=== PATIENT | female | born 1965 ===

== ENCOUNTER 2017-04-19 09:42 | Inpatient (IN) | payer OTHER, MEDICAID ==
[2017-04-19 09:43] VITALS: BMI 23.5
[2017-04-19 10:29] LABS: BASO # 0.1 K/uL (0.0-0.2); BASO % 0.9 % (0.0-2.0); EOS % 0.1 % (0.0-4.0); HEMATOCRIT 39.8 % (34.0-47.0); LYMPH % 17.1 % (20.0-40.0); MEAN CELL VOLUME 89.5 fL (81.0-99.0); MEAN CORPUSCULAR HEMOGLOBIN 28.7 pg (27.0-31.0); MEAN CORPUSCULAR HGB CONC 32.1 g/dL (33.0-37.0); MEAN PLATELET VOLUME 7.9 fL (7.2-11.7); MONO # 1.1 K/uL (0.0-0.8); MONO % 9.4 % (0.0-10.0); RED CELL DISTRIBUTION WIDTH 14.6 % (11.5-14.5)
[2017-04-19 10:31] LABS: WHITE BLOOD COUNT 11.5 K/uL (4.8-10.8)
[2017-04-19 10:39] LABS: CHLORIDE 103 mmol/L (98-107); POTASSIUM 3.8 mmol/L (3.6-5.2); SODIUM 144 mmol/L (132-148)
[2017-04-19 10:41] LABS: ALB/GLOB RATIO 1.3 (1.0-2.1); ALKALINE PHOSPHATASE 78 U/L (38-126); AST/SGOT 43 U/L (14-36); BILIRUBIN,TOTAL 1.3 mg/dL (0.2-1.3); CARBON DIOXIDE 26 mmol/L (22-30); GFR AFRICAN-AMERICAN 48; TOTAL PROTEIN 8.5 g/dL (6.3-8.3)
[2017-04-19 10:42] LABS: ALT/SGPT 26 U/L (9-52); BLOOD UREA NITROGEN 16 mg/dL (7-17); CALCIUM 9.9 mg/dl (8.6-10.4); GLUCOSE,RANDOM 92 mg/dL (65-105)
[2017-04-19 10:43] LABS: ALCOHOL SERUM < 10 mg/dl (0-10)
--- NOTE | 2017-04-19 10:46 | C.PDOC ---
History Of Present Illness 51-year-old female brought to ED by family for evaluation of being agitated x2 days. Patient states she took several pills that her gave her, because she was drinking "and I wanted to get the alcohol out of my system." Family member states that patient is not compliant with bipolar medications. Patient denies current physical complaints other than feeling nervous. She denies SI/ HI. Time Seen by Provider: 04/19/17 09:50 Chief Complaint (Nursing): Psychiatric Evaluation History Per: Patient, Family History/Exam Limitations: no limitations Onset/Duration Of Symptoms: Days Current Symptoms Are (Timing): Still Present Severity: Mild Past Medical History Reviewed: Historical Data, Nursing Documentation, Vital Signs Vital Signs: Last Vital Signs Temp 97.7 F 04/28/17 07:01 Pulse 93 H 04/28/17 07:01 Resp 18 04/28/17 07:01 BP 91/64 L 04/28/17 07:01 Pulse Ox 97 04/28/17 16:37 - Medical History PMH: Anxiety, Bipolar Disorder, Depression, Hepatitis - [facility] Procedures GROUP PSYCHOTHERAPY (10/07/16) INDIV PSYCHOTHERAPY FOR SUBSTANCE ABUSE, PSYCHOEDUCATION (09/03/16) INDIVIDUAL PSYCHOTHERAPY, SUPPORTIVE (10/07/16) MEDICATION MANAGEMENT (10/07/16) MEDS MGMT FOR SUBSTANCE ABUSE TREATMENT, OTH REPL MED (10/07/16) Family History: States: No Known Family Hx - Social History Hx Alcohol Use: Yes Hx Substance Use: Yes - Immunization History Hx Tetanus Toxoid Vaccination: No Hx Influenza Vaccination: No Hx Pneumococcal Vaccination: No Review Of Systems Except As Marked, All Systems Reviewed And Found Negative. Constitutional: Negative for: Fever ( ) Cardiovascular: Negative for: Chest Pain Respiratory: Negative for: Shortness of Breath Gastrointestinal: Negative for: Nausea, Vomiting Neurological: Negative for: Headache Psych: Negative for: Suicidal ideation Physical Exam - Physical Exam Appears: Non-toxic, No Acute Distress, Other (Agitated, awake and alert) Skin: Warm, Dry, No Rash Head: Atraumatic, Normacephalic Eye(s): bilateral: Normal Inspection Oral Mucosa: Moist Cardiovascular: Rhythm Regular (Tachycardic) Respiratory: Normal Breath Sounds, No Rales, No Rhonchi, No Wheezing Gastrointestinal/Abdominal: Normal Exam, Bowel Sounds, Soft, No Tenderness Extremity: Normal ROM Neurological/Psych: Oriented x3 Gait: Steady ED Course And Treatment - Laboratory Results Result Diagrams: 04/22/17 07:59 04/22/17 07:59 ECG: Interpreted By Me, Viewed By Me ECG Rhythm: Sinus Tachycardia ECG Interpretation: No Acute Changes Interpretation Of ECG: No acute ST/T wave changes. QTC: 513ms Rate From EC O2 Sat by Pulse Oximetry: 97 (on room air) Pulse Ox Interpretation: Normal Progress Note: Bloodwork, EKG, and UA, UDS ordered and reviewed. Patient given IV NS bolus, PO Xanax. 4:15pm- Patient medically cleared. CK elevation improving after IV fluids, recommend plenty of PO fluids during psych admission. 4:30pm- Patient accepted for psychiatric admission by Dr. Munoz. Disposition - Disposition Disposition: HOSPITALIZED Disposition Time: 16:30 Condition: STABLE - Clinical Impression Clinical Impression: Bipolar disorder - Scribe Statement The provider has reviewed the documentation as recorded by the Scribe Kimberly Francois All medical record entries made by the Scribe were at my direction and personally dictated by me. I have reviewed the chart and agree that the record accurately reflects my personal performance of the history, physical exam, medical decision making, and the department course for this patient. I have also personally directed, reviewed, and agree with the discharge instructions and disposition. Decision To Admit - Pt Status Changed To: Hospital Disposition Of: Inpatient - Admit Certification Admit to Inpatient:: After my assessment, the patient will require hospitalization for at least two midnights. This is because of the severity of symptoms shown, intensity of services needed, and/or the medical risk in this patient being treated as an outpatient. - InPatient: Physician Admission Certification: I certify that this patient requires 2 or more midnights of care for the following reason:: see notes - . Bed Request Type: Psychiatry Admitting Physician: Fredy Munoz Patient Diagnosis: Bipolar disorder
[2017-04-19] MEDS: Sodium Chloride 0.9% 1,000 ML IV ONE ×2 (11:55→12:18)
[2017-04-19] MEDS ORDERED: Sodium Chloride 0.9% 1,000 ML ONE (12:17)
[2017-04-19] MEDS ORDERED: Sodium Chloride 0.9% 500 ML IV ONE ×2 (12:55→12:57)
[2017-04-19 13:18] LABS: RBC URINE 3 /hpf (0-3); URINE BILIRUBIN NEGATIVE (NEGATIVE); URINE BLOOD NEGATIVE (NEGATIVE); URINE COLOR Yellow (YELLOW); URINE GLUCOSE (UA) NORMAL (Normal); URINE KETONE TRACE mg/dL (NEGATIVE); URINE LEUKOCYTE ESTERASE 1+ Leu/uL (Negative); URINE PROTEIN 1+ mg/dL (NEGATIVE); URINE UROBILINOGEN NORMAL mg/dL (0.2-1.0); WBC URINE 7 /hpf (0-5)
[2017-04-19 14:03] LABS: POTASSIUM 3.8 mmol/L (3.6-5.2)
[2017-04-19 14:06] LABS: CALCIUM 7.8 mg/dl (8.6-10.4)
[2017-04-19] MEDS ORDERED: Pneumococcal 23-Valent Vaccine IM ONE (18:51)
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
[2017-04-20] MEDS: Divalproex 500 mg DR Tab PO SCH ×2 (10:57→20:13)
[2017-04-21] MEDS: Divalproex 500 mg DR Tab PO SCH ×2 (09:23→17:37)
[2017-04-21] MEDS: Calcium-Vit D 250 mg-125 Units Tab UD PO SCH (09:34)
[2017-04-21] MEDS: Calcium Carbonate 500 mg Chewable Antacid Tab PO SCH ×2 (09:41→17:37)
--- NOTE | 2017-04-21 21:11 | PCM.PYCHPN ---
Psychiatric Progress Note - Psychiatric Progress Note Patient seen today, length of contact: 18 min Patient Chief Complaint: "I am better" Problems Identified/Issues Discussed: The pt is seen, chart reviewed, case discussed with staff. The pt is compliant with medications and reports no side-effects. Symptoms are improving but needs more time to stabilize. After care discussed, support and psychoeducation given. Medication Change: Yes Medical Record Reviewed: Yes Mental Status Examination - Cognitive Function Orientation: Person, Place, Situation, Time Memory: Intact Attention: Poor Concentration: Poor Association: WNL Fund of Knowledge: Poor - Mood Mood: Anxious - Affect Affect: Other (labile) - Speech Speech: Appropriate - Formal Thought Process Formal Thought Process: Loosening of associations - Suicidal Ideation Suicidal Ideation: No - Homicidal Ideation Homicidal Ideation: No Goal/Treatment Plan - Goal/Treatment Plan Need for Continued Stay: Discharge may exacerbated symptoms, Severe functional impairment Progress Toward Problem(s) and Goals/Treatment Plan: Bipolar d/o: - Seroquel - Depakote - Attend groups and activities - Support and psychoed Alcohol and benzos: - gabapentin and depakote should help with possible mild wdw sxs - Monitor CIWA - Vitamins - As needed meds - Attend groups and activities - Support and psychoed - [place] and CBt
[2017-04-22 08:19] LABS: BASO % 0.7 % (0.0-2.0); EOS # 0.1 K/uL (0.0-0.7); EOS % 2.7 % (0.0-4.0); HEMATOCRIT 35.8 % (34.0-47.0); LYMPH # 1.6 K/uL (1.0-4.3); LYMPH % 33.5 % (20.0-40.0); MEAN CELL VOLUME 89.6 fL (81.0-99.0); MEAN CORPUSCULAR HEMOGLOBIN 29.3 pg (27.0-31.0); MEAN CORPUSCULAR HGB CONC 32.7 g/dL (33.0-37.0); MONO # 0.3 K/uL (0.0-0.8); MONO % 7.2 % (0.0-10.0); NRBC % 0.2 % (0.0-2.0); RED CELL DISTRIBUTION WIDTH 14.9 % (11.5-14.5)
[2017-04-22 08:33] LABS: WHITE BLOOD COUNT 4.7 K/uL (4.8-10.8)
[2017-04-22 08:37] LABS: CHLORIDE 102 mmol/L (98-107); POTASSIUM 4.1 mmol/L (3.6-5.2); SODIUM 136 mmol/L (132-148)
[2017-04-22 08:39] LABS: BILIRUBIN,TOTAL 0.6 mg/dL (0.2-1.3); GFR AFRICAN-AMERICAN > 60
[2017-04-22 08:40] LABS: ALB/GLOB RATIO 1.3 (1.0-2.1); ALKALINE PHOSPHATASE 53 U/L (38-126); ALT/SGPT 18 U/L (9-52); AST/SGOT 21 U/L (14-36); BLOOD UREA NITROGEN 14 mg/dL (7-17); CARBON DIOXIDE 25 mmol/L (22-30); GLUCOSE,RANDOM 90 mg/dL (65-105); TOTAL PROTEIN 6.6 g/dL (6.3-8.3)
[2017-04-22 08:41] LABS: CALCIUM 8.3 mg/dl (8.6-10.4)
[2017-04-22] MEDS: Divalproex 500 mg DR Tab PO SCH ×2 (09:00→17:40)
[2017-04-22] MEDS: Calcium-Vit D 250 mg-125 Units Tab UD PO SCH (09:00)
[2017-04-22 10:05] LABS: RBC URINE < 1 /hpf (0-3); URINE BILIRUBIN NEGATIVE (NEGATIVE); URINE BLOOD NEGATIVE (NEGATIVE); URINE COLOR Yellow (YELLOW); URINE GLUCOSE (UA) NORMAL (Normal); URINE KETONE NEGATIVE (NEGATIVE); URINE LEUKOCYTE ESTERASE 1+ Leu/uL (Negative); URINE PROTEIN NEGATIVE (NEGATIVE); URINE UROBILINOGEN NORMAL mg/dL (0.2-1.0); WBC URINE 2 /hpf (0-5)
--- NOTE | 2017-04-22 12:24 | PCM.PYCHPN ---
Psychiatric Progress Note - Psychiatric Progress Note Patient seen today, length of contact: 18 min Patient Chief Complaint: i m feeling depressed Problems Identified/Issues Discussed: Patient seen and evaluated, chart reviewed and discussed with the nurse. Patient still reports depressed mood and reports at times feelings of hopelessness or helplessness. She remained isolated and withdrawn. As per staff she was crying whole day yesterday. She still reports withdrawal symptoms for anxiety, headaches and sweating. She is worried that her boyfriend might be deported back to his country in because of multiple DWIs. She reported poor sleep and poor appetite. However she is taking medication and denies any side effects Supportive therapy and psychoeducation were given. Medication Change: No Medical Record Reviewed: Yes Mental Status Examination - Cognitive Function Orientation: Person, Place, Situation, Time Memory: Intact Attention: Poor Concentration: Poor Association: WNL Fund of Knowledge: Poor - Mood Mood: Anxious - Affect Affect: Other (labile) - Speech Speech: Appropriate - Formal Thought Process Formal Thought Process: Loosening of associations - Suicidal Ideation Suicidal Ideation: No - Homicidal Ideation Homicidal Ideation: No Goal/Treatment Plan - Goal/Treatment Plan Need for Continued Stay: Discharge may exacerbated symptoms, Severe functional impairment Progress Toward Problem(s) and Goals/Treatment Plan: Bipolar I, mixed episode, severe r/o schizoaffective d/o Alcohol use d/o - moderate Sedative, hypnotic use d/o - moderate Bipolar d/o: - Seroquel 300 mg daily at bedtime - Depakote 500 mg by mouth twice a day - Attend groups and activities - Support and psychoed Alcohol and benzos: - Monitor CIWA - Vitamins - As needed meds - Attend groups and activities - Support and psychoed - [place] and CBt - Smoking Cessation Smoking Cessation Initiated: No
[2017-04-23] MEDS: Calcium-Vit D 250 mg-125 Units Tab UD PO SCH (10:02)
[2017-04-23] MEDS: Divalproex 500 mg DR Tab PO SCH ×2 (10:36→17:30)
--- NOTE | 2017-04-23 11:18 | PCM.PYCHPN ---
Psychiatric Progress Note - Psychiatric Progress Note Patient seen today, length of contact: 18 min Patient Chief Complaint: I'm feeling anxious Problems Identified/Issues Discussed: Patient seen and evaluated, chart reviewed and discussed with the nurse. As per staff, she was crying whole day yesterday. Patient still reports depressed mood and remained isolated and withdrawn. As per staff she was crying whole day yesterday. She still reports withdrawal symptoms for anxiety, headaches and sweating. She is worried that her boyfriend might be deported back to his country in because of multiple DWIs. She reported poor sleep and poor appetite. However she is taking medication and denies any side effects Supportive therapy and psychoeducation were given. Medication Change: Yes Medical Record Reviewed: Yes Mental Status Examination - Cognitive Function Orientation: Person, Place, Situation, Time Memory: Intact Attention: Poor Concentration: Poor Association: WNL Fund of Knowledge: Poor - Mood Mood: Anxious - Affect Affect: Other (labile) - Speech Speech: Appropriate - Formal Thought Process Formal Thought Process: Loosening of associations - Suicidal Ideation Suicidal Ideation: No - Homicidal Ideation Homicidal Ideation: No Goal/Treatment Plan - Goal/Treatment Plan Need for Continued Stay: Discharge may exacerbated symptoms, Severe functional impairment Progress Toward Problem(s) and Goals/Treatment Plan: Bipolar I, mixed episode, severe r/o schizoaffective d/o Alcohol use d/o - moderate Sedative, hypnotic use d/o - moderate Bipolar d/o: - Seroquel - Depakote - Attend groups and activities - Support and psychoed Alcohol and benzos: - gabapentin and depakote should help with possible mild wdw sxs - Monitor CIWA - Vitamins - As needed meds - Attend groups and activities - Support and psychoed - [place] and CBt
[2017-04-24] MEDS: Divalproex 500 mg DR Tab PO SCH (10:11)
[2017-04-24] MEDS: Calcium-Vit D 250 mg-125 Units Tab UD PO SCH (10:11)
--- NOTE | 2017-04-24 15:17 | PCM.PYCHPN ---
Psychiatric Progress Note - Psychiatric Progress Note Patient seen today, length of contact: 18 min Patient Chief Complaint: I m feeling dizzy.' Problems Identified/Issues Discussed: Patient seen and evaluated, chart reviewed and discussed with the nurse. Today patient reports dizziness from her medications. She still reports depressed mood and reports feelings of hopelessness or helplessness. She remained isolated and withdrawn. She is still worried about the deportation of her boyfriend and continue crying. She reports poor sleep and poor appetite. However she is taking medication and denies any side effects Supportive therapy and psychoeducation were given. Medication Change: Yes (reduce Depakote, decrease seroquel, start zoloft) Medical Record Reviewed: Yes Mental Status Examination - Cognitive Function Orientation: Person, Place, Situation, Time Memory: Intact Attention: Poor Concentration: Poor Association: WNL Fund of Knowledge: Poor - Mood Mood: Anxious - Affect Affect: Other (labile) - Speech Speech: Appropriate - Formal Thought Process Formal Thought Process: Paranoia, Loosening of associations - Suicidal Ideation Suicidal Ideation: No - Homicidal Ideation Homicidal Ideation: No Goal/Treatment Plan - Goal/Treatment Plan Need for Continued Stay: Discharge may exacerbated symptoms, Severe functional impairment Progress Toward Problem(s) and Goals/Treatment Plan: Bipolar I, mixed episode, severe r/o schizoaffective d/o Alcohol use d/o - moderate Sedative, hypnotic use d/o - moderate Bipolar d/o: - Seroquel 200 mg po QHS - Depakote 250 mg PO BID - Zoloft 50 mg PO Daily - Attend groups and activities - Support and psychoed Alcohol and benzos: - gabapentin and depakote should help with possible mild wdw sxs - Monitor CIWA - Vitamins - As needed meds - Attend groups and activities - Support and psychoed - [place] and CBt - Smoking Cessation Smoking Cessation Initiated: No
[2017-04-24] MEDS: Divalproex 250 mg DR Tab PO SCH (18:04)
[2017-04-25] MEDS: Divalproex 250 mg DR Tab PO SCH ×2 (09:33→17:39)
[2017-04-25] MEDS: Calcium-Vit D 250 mg-125 Units Tab UD PO SCH (09:33)
--- NOTE | 2017-04-25 11:16 | PCM.PYCHPN ---
Psychiatric Progress Note - Psychiatric Progress Note Patient seen today, length of contact: 18 min Patient Chief Complaint: I m feeling very anxious.' Problems Identified/Issues Discussed: Patient seen and evaluated, chart reviewed and discussed with the nurse. The patient remained labile and started crying loudly. When asked the reason she reports that she is feeling depressed and anxious. She was given anxiety medications but she continued to cry. She was given IM Haldol and Ativan but she continued to report depressed mood and feelings of hopelessness or helplessness. She remained worried about her boyfriend. She appeared paranoid and delusional. However she is taking medication and denies any side effects Supportive therapy and psychoeducation were given. Medication Change: Yes (reduce Depakote, decrease seroquel, start zoloft) Medical Record Reviewed: Yes Mental Status Examination - Cognitive Function Orientation: Person, Place, Situation, Time Memory: Intact Attention: Poor Concentration: Poor Association: WNL Fund of Knowledge: Poor - Mood Mood: Anxious - Affect Affect: Other (labile) - Speech Speech: Appropriate - Formal Thought Process Formal Thought Process: Delusions, Paranoia, Loosening of associations - Suicidal Ideation Suicidal Ideation: No - Homicidal Ideation Homicidal Ideation: No Goal/Treatment Plan - Goal/Treatment Plan Need for Continued Stay: Discharge may exacerbated symptoms, Severe functional impairment Progress Toward Problem(s) and Goals/Treatment Plan: Bipolar I, mixed episode, severe r/o schizoaffective d/o Alcohol use d/o - moderate Sedative, hypnotic use d/o - moderate Bipolar d/o: - Seroquel 200 mg po QHS - Depakote 250 mg PO daily - Depakote 500 mg PO HS - Zoloft 50 mg PO Daily - Haldol 5 mg by mouth twice a day - Klonopin 1 mg by mouth twice a day - Attend groups and activities - Support and psychoed Alcohol and benzos: - gabapentin and depakote should help with possible mild wdw sxs - Monitor CIWA - Vitamins - As needed meds - Attend groups and activities - Support and psychoed - [place] and CBt
[2017-04-25] MEDS ORDERED: DiphenhydrAMINE 50 mg/ml Inj IM PRN (11:32)
[2017-04-25] MEDS: Divalproex 500 mg DR Tab PO SCH (21:38)
[2017-04-26] MEDS: Divalproex 250 mg DR Tab PO SCH (09:31)
[2017-04-26] MEDS: Calcium-Vit D 250 mg-125 Units Tab UD PO SCH (09:31)
--- NOTE | 2017-04-26 18:45 | PCM.PYCHPN ---
Psychiatric Progress Note - Psychiatric Progress Note Patient seen today, length of contact: 16 min Patient Chief Complaint: "I want to leave soon, have a court date on Saturday" Problems Identified/Issues Discussed: The pt is seen, chart reviewed, case discussed with staff. Support given, CBT and MO used briefly No new symptoms reported, improving slowly and needs some more time No SEs from medications, risks discussed. After care discussed - will go to [place] [facility]. SW is made aware that she will leave on Saturday bc of a court on Saturday Medication Change: No Medical Record Reviewed: Yes Mental Status Examination - Cognitive Function Orientation: Person, Place, Situation, Time Memory: Intact Attention: Poor Concentration: Poor Association: WNL Fund of Knowledge: Poor - Mood Mood: Anxious - Affect Affect: Other (labile) - Speech Speech: Appropriate - Formal Thought Process Formal Thought Process: Delusions, Paranoia, Loosening of associations - Suicidal Ideation Suicidal Ideation: No - Homicidal Ideation Homicidal Ideation: No Goal/Treatment Plan - Goal/Treatment Plan Need for Continued Stay: Discharge may exacerbated symptoms, Severe functional impairment Progress Toward Problem(s) and Goals/Treatment Plan: Continue meds Support and psychoed MO Sx-mgt discussed After care discussed Estimated Date of D/C: 04/28/17
[2017-04-26] MEDS: Divalproex 500 mg DR Tab PO SCH (21:12)
[2017-04-27] MEDS: Divalproex 250 mg DR Tab PO SCH (10:53)
[2017-04-27] MEDS: Calcium-Vit D 250 mg-125 Units Tab UD PO SCH (10:56)
--- NOTE | 2017-04-27 15:37 | CARD ---
APPROVED REPORT EKG Measurement Heart [id number] <Conclusion> Sinus tachycardia Possible Left atrial enlargement Borderline ECG
[2017-04-27] MEDS: Divalproex 500 mg DR Tab PO SCH (21:19)
[2017-04-28 07:02] VITALS: BP 91/64; PULSE 93; RESP 18; TEMP 97.7
[2017-04-28] MEDS: Calcium-Vit D 250 mg-125 Units Tab UD PO SCH (09:06)
[2017-04-28] MEDS: Divalproex 250 mg DR Tab PO SCH (09:06)
[2017-04-28 16:35] VITALS: O2SAT 97
--- NOTE | 2017-04-28 23:26 | PCM.PYCHPN ---
Psychiatric Progress Note - Psychiatric Progress Note Patient seen today, length of contact: 15 MIN Patient Chief Complaint: I NEED TO LEAVE TOMORROW, I HAVE COURT SATURDAY. Problems Identified/Issues Discussed: SYMPTOM MANAGEMENT AFTERCARE Medical Problems: NOTHING ACUTE Diagnostic Results: REVIEWED DSM 5 Symptoms Update: HAS ENERGY HAS MOTIVATION Medication Change: No Medical Record Reviewed: Yes Mental Status Examination - Cognitive Function Orientation: Person, Place, Situation, Time Memory: Intact Attention: WNL Concentration: WNL Association: WNL Fund of Knowledge: Poor - Mood Mood: Anxious - Affect Affect: Blunted, Other (labile) - Speech Speech: Appropriate - Formal Thought Process Formal Thought Process: Delusions, Paranoia - Suicidal Ideation Suicidal Ideation: No - Homicidal Ideation Homicidal Ideation: No Goal/Treatment Plan - Goal/Treatment Plan Need for Continued Stay: Remain at risks for inpatient hospitalization, Discharge may exacerbated symptoms, Severe functional impairment Progress Toward Problem(s) and Goals/Treatment Plan: ATTENDING GROUPS TAKING MEDS Estimated Date of D/C: 04/28/17 - Smoking Cessation Smoking Cessation Initiated: No
== END 2017-04-28 12:00 | disposition home or self-care (01) | DRG 885 ==
LOC: C.ER 09:42 → C.9E 16:29 → C.5E 16:53
PROVIDERS: ADMIT Psychiatry & Neurology Psychiatry; ATTEND Psychiatry & Neurology Psychiatry
PROC: GZHZZZZ Group Psychotherapy (ICD-10-PCS; principal; 2017-04-19)
PROC: HZ56ZZZ Individual Psychotherapy for Substance Abuse Treatment, Psychoeducation (ICD-10-PCS; 2017-04-19)
PROC: HZ59ZZZ Individual Psychotherapy for Substance Abuse Treatment, Supportive (ICD-10-PCS; 2017-04-19)
PROC: GZ56ZZZ Individual Psychotherapy, Supportive (ICD-10-PCS; 2017-04-19)
DX: F31.63 Bipolar disorder, current episode mixed, severe, without psychotic features (principal); F13.10 Sedative, hypnotic or anxiolytic abuse, uncomplicated; F41.9 Anxiety disorder, unspecified; Z79.899 Other long term (current) drug therapy; F10.10 Alcohol abuse, uncomplicated

== ENCOUNTER 2017-05-10 22:04 | Observation (INO) | payer OTHER ==
[2017-05-10 22:04] VITALS: BMI 23.5
[2017-05-10 22:14] VITALS: RESP 16
[2017-05-10 23:02] LABS: BASO % 0.8 % (0.0-2.0); EOS % 0.5 % (0.0-4.0); HEMOGLOBIN 11.9 g/dL (11.0-16.0); LYMPH # 1.5 K/uL (1.0-4.3); LYMPH % 32.1 % (20.0-40.0); MEAN CELL VOLUME 89.4 fL (81.0-99.0); MEAN CORPUSCULAR HEMOGLOBIN 28.9 pg (27.0-31.0); MEAN CORPUSCULAR HGB CONC 32.4 g/dL (33.0-37.0); MEAN PLATELET VOLUME 8.2 fL (7.2-11.7); MONO # 0.2 K/uL (0.0-0.8); MONO % 4.4 % (0.0-10.0); NEUT # 2.9 K/uL (1.8-7.0); NEUT % 62.2 % (50.0-75.0); NRBC % 0.1 % (0.0-2.0); RBC 4.11 Mil/uL (3.80-5.20); RED CELL DISTRIBUTION WIDTH 15.1 % (11.5-14.5); WHITE BLOOD COUNT 4.7 K/uL (4.8-10.8)
[2017-05-10 23:10] LABS: ALBUMIN 4.1 g/dL (3.5-5.0)
[2017-05-10 23:13] LABS: AST/SGOT 21 U/L (14-36); GFR AFRICAN-AMERICAN > 60; GFR NON-AFRICAN AMERICAN > 60
[2017-05-10 23:14] LABS: ALB/GLOB RATIO 1.3 (1.0-2.1); ALT/SGPT 19 U/L (9-52); BLOOD UREA NITROGEN 5 mg/dL (7-17); CALCIUM 8.3 mg/dl (8.6-10.4)
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
[2017-05-10 23:22] LABS: URINE BILIRUBIN NEGATIVE (NEGATIVE); URINE BLOOD NEGATIVE (NEGATIVE); URINE CLARITY Clear (Clear); URINE COLOR Yellow (YELLOW); URINE GLUCOSE (UA) NORMAL (Normal); URINE LEUKOCYTE ESTERASE NEG Leu/uL (Negative); URINE NITRATE NEGATIVE (NEGATIVE); URINE PROTEIN NEGATIVE (NEGATIVE); URINE UROBILINOGEN NORMAL mg/dL (0.2-1.0)
[2017-05-10 23:31] LABS: BENZODIAZEPINES, UR NEGATIVE (NEGATIVE)
[2017-05-10 23:32] LABS: BARBITURATES, UR NEGATIVE (NEGATIVE)
[2017-05-10 23:35] LABS: OPIATES, UR NEGATIVE (NEGATIVE); PHENCYCLIDINE, UR NEGATIVE (NEGATIVE)
[2017-05-11 04:21] VITALS: BP 116/78; PULSE 110; TEMP 98.2; O2SAT 98
== END 2017-05-11 02:42 | disposition home or self-care (01) ==
LOC: C.ER 22:04 → C.9OBSV 22:41
PROVIDERS: ADMIT Emergency Medicine; ATTEND Emergency Medicine
DX: F10.129 Alcohol abuse with intoxication, unspecified (principal); F31.9 Bipolar disorder, unspecified; F10.120 Alcohol abuse with intoxication, uncomplicated; Y90.8 Blood alcohol level of 240 mg/100 ml or more
CPT/HCPCS: 80053; 81001; 84703; 85025; 96372; 99285; G0378; G0480; J0515; J1630; J2060

== ENCOUNTER 2017-05-24 17:32 | Emergency (ER) | payer OTHER ==
[2017-05-24 17:33] VITALS: BMI 23.5
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
[2017-05-24 17:45] VITALS: BP 137/96; PULSE 99; RESP 18; TEMP 97.9; O2SAT 96
== END 2017-05-24 17:58 | disposition home or self-care (01) ==
LOC: C.ER 17:32
DX: F10.10 Alcohol abuse, uncomplicated (principal); Y90.9 Presence of alcohol in blood, level not specified

== ENCOUNTER 2017-05-25 00:32 | Observation (INO) | payer OTHER ==
[2017-05-25 00:39] VITALS: BMI 28.3
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
[2017-05-25 07:39] VITALS: BP 112/81; PULSE 99; RESP 16; TEMP 97.5; O2SAT 96
== END 2017-05-25 08:46 | disposition home or self-care (01) ==
LOC: C.ER 00:32 → C.9OBSV 00:39
PROVIDERS: ADMIT Internal Medicine; ATTEND Internal Medicine
DX: F10.120 Alcohol abuse with intoxication, uncomplicated (principal); F31.9 Bipolar disorder, unspecified
CPT/HCPCS: 96372; 99285; G0378; J2060; J3486

== ENCOUNTER 2017-07-13 20:38 | Observation (INO) | payer OTHER ==
[2017-07-13 20:39] VITALS: BMI 28.3
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
[2017-07-13] MEDS ORDERED: DiphenhydrAMINE 50 mg/ml Inj IM STA (21:03)
[2017-07-13] MEDS ORDERED: DiphenhydrAMINE 50 mg/ml Inj ONE (21:11)
[2017-07-13 21:23] LABS: RBC URINE 2 /hpf (0-3); URINE BACTERIA RARE (<OCC); URINE BILIRUBIN NEGATIVE (NEGATIVE); URINE BLOOD NEGATIVE (NEGATIVE); URINE COLOR Straw (YELLOW); URINE GLUCOSE (UA) NORMAL (Normal); URINE KETONE NEGATIVE (NEGATIVE); URINE LEUKOCYTE ESTERASE NEG Leu/uL (Negative); URINE PROTEIN NEGATIVE (NEGATIVE); URINE UROBILINOGEN NORMAL mg/dL (0.2-1.0); WBC URINE 2 /hpf (0-5)
[2017-07-13 21:43] LABS: BASO % 1.3 % (0.0-2.0); EOS % 0.9 % (0.0-4.0); HEMATOCRIT 35.5 % (34.0-47.0); LYMPH # 1.7 K/uL (1.0-4.3); LYMPH % 45.1 % (20.0-40.0); MEAN CELL VOLUME 92.1 fL (81.0-99.0); MEAN CORPUSCULAR HEMOGLOBIN 30.6 pg (27.0-31.0); MEAN CORPUSCULAR HGB CONC 33.2 g/dL (33.0-37.0); MEAN PLATELET VOLUME 7.4 fL (7.2-11.7); MONO # 0.2 K/uL (0.0-0.8); MONO % 6.6 % (0.0-10.0); NRBC % 0.1 % (0.0-2.0); RED CELL DISTRIBUTION WIDTH 17.2 % (11.5-14.5); WHITE BLOOD COUNT 3.7 K/uL (4.8-10.8)
[2017-07-13 21:55] LABS: ALB/GLOB RATIO 1.3 (1.0-2.1); ALCOHOL SERUM 270 mg/dl (0-10); ALKALINE PHOSPHATASE 72 U/L (38-126); ALT/SGPT 33 U/L (9-52); AST/SGOT 27 U/L (14-36); BILIRUBIN,TOTAL 0.4 mg/dL (0.2-1.3); BLOOD UREA NITROGEN 7 mg/dL (7-17); CALCIUM 8.5 mg/dl (8.6-10.4); CARBON DIOXIDE 21 mmol/L (22-30); CHLORIDE 107 mmol/L (98-107); GFR AFRICAN-AMERICAN > 60; GLUCOSE,RANDOM 94 mg/dL (65-105); POTASSIUM 3.9 mmol/L (3.6-5.2); SODIUM 146 mmol/L (132-148); TOTAL PROTEIN 7.5 g/dL (6.3-8.3)
[2017-07-14 05:29] VITALS: BP 108/71; PULSE 78; RESP 19; TEMP 98.3
[2017-07-14 06:08] VITALS: O2SAT 97
== END 2017-07-14 06:07 | disposition home or self-care (01) ==
LOC: C.ER 20:38 → C.9OBSV 21:06
PROVIDERS: ADMIT Emergency Medicine; ATTEND Emergency Medicine
DX: F10.129 Alcohol abuse with intoxication, unspecified (principal)
CPT/HCPCS: 36415; 80053; 81001; 85025; 96372; 99285; G0378; G0480

== ENCOUNTER 2017-07-31 15:54 | Emergency (ER) | payer OTHER ==
[2017-07-31 15:54] VITALS: BMI 28.3
[2017-07-31 16:58] VITALS: BP 153/99; PULSE 112; TEMP 99.3; O2SAT 97
--- NOTE | 2017-07-31 17:34 | C.PDOC ---
History Of Present Illness 51 y/o female, with history of alcohol abuse, presents to ED for evaluation after being given 2 Xanax pills by her last night. Pt states that she has not drank alcohol in "months". Otherwise, denies any chest pain, shortness of breath, cough, nausea, vomiting, abdominal pain, diarrhea, fever, or chills. Time Seen by Provider: 07/31/17 16:54 Chief Complaint (Nursing): Ingestion, Accidental History Per: Patient History/Exam Limitations: no limitations Onset/Duration Of Symptoms: Days (1) Current Symptoms Are (Timing): Still Present Severity: None Pain Scale Rating Of: 0 Recent travel outside of the [place]: No Additional History Per: Patient Past Medical History Reviewed: Historical Data, Nursing Documentation, Vital Signs Vital Signs: Last Vital Signs Temp 99.3 F 07/31/17 16:52 Pulse 112 H 07/31/17 16:52 Resp 16 07/31/17 16:52 BP 153/99 H 07/31/17 16:52 Pulse Ox 97 07/31/17 18:30 - Medical History PMH: Anxiety, Bipolar Disorder, Depression, Hepatitis Denies: Diabetes, HIV, HTN, Chronic Kidney Disease, Seizures, Sexually Transmitted Disease - [facility] Procedures GROUP PSYCHOTHERAPY (05/25/17) INDIV PSYCHOTHERAPY FOR SUBSTANCE ABUSE TREATMENT, SUPPORT (05/25/17) INDIV PSYCHOTHERAPY FOR SUBSTANCE ABUSE, PSYCHOEDUCATION (04/19/17) INDIVIDUAL PSYCHOTHERAPY, SUPPORTIVE (04/19/17) MEDICATION MANAGEMENT (10/07/16) MEDS MGMT FOR SUBSTANCE ABUSE TREATMENT, OTH REPL MED (10/07/16) Family History: States: Unknown Family Hx - Social History Hx Alcohol Use: Yes Hx Substance Use: Yes (used cocaine a long time ago) - Immunization History Hx Tetanus Toxoid Vaccination: No Hx Influenza Vaccination: No Hx Pneumococcal Vaccination: No Review Of Systems Except As Marked, All Systems Reviewed And Found Negative. Constitutional: Negative for: Fever, Chills Cardiovascular: Negative for: Chest Pain, Palpitations, Light Headedness Respiratory: Negative for: Cough, Shortness of Breath Gastrointestinal: Negative for: Nausea, Vomiting, Abdominal Pain, Diarrhea Skin: Positive for: Bruising Neurological: Negative for: Weakness, Numbness, Headache, Dizziness Physical Exam - Physical Exam Appears: Non-toxic, No Acute Distress Skin: Warm, Dry, Other (bruising to arms and legs (pt states she falls frequently due to intoxication)) Head: Atraumatic, Normacephalic Eye(s): bilateral: Normal Inspection, PERRL, EOMI Nose: Normal Oral Mucosa: Moist Tongue: Normal Appearing Lips: Normal Appearing Teeth: No Normal Dentition (poor dentition) Neck: Normal ROM, Supple Chest: Symmetrical Cardiovascular: Rhythm Regular, No Murmur Respiratory: Normal Breath Sounds, No Rales, No Rhonchi, No Wheezing Gastrointestinal/Abdominal: Soft, No Tenderness Back: No CVA Tenderness Extremity: Normal ROM, No Pedal Edema Neurological/Psych: Oriented x3, Normal Speech ED Course And Treatment - Laboratory Results Result Diagrams: 07/31/17 17:41 07/31/17 17:41 Lab Interpretation: Normal O2 Sat by Pulse Oximetry: 97 (RA) Pulse Ox Interpretation: Normal - CT Scan/US No standard instances Other Rad Studies (CT/US): Read By Radiologist, Radiology Report Reviewed CT/US Interpretation: FINDINGS: HEMORRHAGE: No intracranial hemorrhage. BRAIN : No mass effect or edema. The valdez-white matter differentiation appears intact. Please note that MRI with diffusion imaging is more sensitive in the detection of acute ischemic event. VENTRICLES: No hydrocephalus. CALVARIUM: Unremarkable. PARANASAL SINUSES: Unremarkable as visualized. No significant inflammatory changes. MASTOID AIR CELLS: Unremarkable as visualized. No inflammatory changes. OTHER FINDINGS: Partial opacification of bilateral external auditory canals, likely cerumen. Mild frontal scalp hematoma. IMPRESSION: No acute intracranial pathology identified. Mild frontal scalp hematoma. Progress Note: Blood work, UA, head CT ordered and reviewed. On re-evaluation patient alert ambulating with steady gait requesting to be discharged Reassessment Condition: Unchanged Disposition Counseled Patient/Family Regarding: Studies Performed, Diagnosis, Need For Followup - Disposition Referrals: [facility] [Outside] [facility] [Outside] Disposition: HOME/ ROUTINE Disposition Time: 18:30 Condition: STABLE Instructions: Head Injury (ED), Abuse of Alcohol (ED) Forms: [facility] ([place]) - POA Present On Arrival: None - Clinical Impression Clinical Impression: Alcohol abuse, Frequent falls, Head injury - PA / INFECTION CONTROL MANAGER / Resident Statement MD/DO has reviewed & agrees with the documentation as recorded. - Scribe Statement The provider has reviewed the documentation as recorded by the Scribe Nicky Mosher All medical record entries made by the Scribe were at my direction and personally dictated by me. I have reviewed the chart and agree that the record accurately reflects my personal performance of the history, physical exam, medical decision making, and the department course for this patient. I have also personally directed, reviewed, and agree with the discharge instructions and disposition.
[2017-07-31 17:56] LABS: BASO % 0.5 % (0.0-2.0); EOS # 0.1 K/uL (0.0-0.7); EOS % 0.8 % (0.0-4.0); HEMATOCRIT 33.9 % (34.0-47.0); LYMPH # 1.2 K/uL (1.0-4.3); LYMPH % 17.2 % (20.0-40.0); MEAN CELL VOLUME 93.7 fL (81.0-99.0); MEAN CORPUSCULAR HEMOGLOBIN 31.1 pg (27.0-31.0); MEAN CORPUSCULAR HGB CONC 33.2 g/dL (33.0-37.0); MEAN PLATELET VOLUME 7.8 fL (7.2-11.7); MONO # 0.4 K/uL (0.0-0.8); MONO % 5.8 % (0.0-10.0); RED CELL DISTRIBUTION WIDTH 16.6 % (11.5-14.5); WHITE BLOOD COUNT 6.9 K/uL (4.8-10.8)
[2017-07-31 17:57] LABS: CHLORIDE 99 mmol/L (98-107); SODIUM 139 mmol/L (132-148)
[2017-07-31 17:58] LABS: POTASSIUM 4.4 mmol/L (3.6-5.2)
[2017-07-31 18:00] LABS: ALB/GLOB RATIO 1.3 (1.0-2.1); ALKALINE PHOSPHATASE 64 U/L (38-126); ALT/SGPT 34 U/L (9-52); AST/SGOT 36 U/L (14-36); BILIRUBIN,TOTAL 0.6 mg/dL (0.2-1.3); BLOOD UREA NITROGEN 6 mg/dL (7-17); CARBON DIOXIDE 27 mmol/L (22-30); GFR AFRICAN-AMERICAN > 60; GLUCOSE,RANDOM 87 mg/dL (65-105); TOTAL PROTEIN 7.3 g/dL (6.3-8.3)
[2017-07-31 18:01] LABS: ALCOHOL SERUM < 10 mg/dl (0-10); CALCIUM 8.7 mg/dl (8.6-10.4)
--- NOTE | 2017-07-31 18:28 | CT ---
PROCEDURE: CT HEAD WITHOUT CONTRAST. HISTORY: head injury COMPARISON: Images from noncontrast head CT performed 06/17/12 TECHNIQUE: Axial computed tomography images were obtained through the head/brain without intravenous contrast. Radiation dose: Total exam DLP = 859.97 mGy-cm. This CT exam was performed using one or more of the following dose reduction techniques: Automated exposure control, adjustment of the mA and/or kV according to patient size, and/or use of iterative reconstruction technique. FINDINGS: HEMORRHAGE: No intracranial hemorrhage. BRAIN: No mass effect or edema. The valdez-white matter differentiation appears intact. Please note that MRI with diffusion imaging is more sensitive in the detection of acute ischemic event. VENTRICLES: No hydrocephalus. CALVARIUM: Unremarkable. PARANASAL SINUSES: Unremarkable as visualized. No significant inflammatory changes. MASTOID AIR CELLS: Unremarkable as visualized. No inflammatory changes. OTHER FINDINGS: Partial opacification of bilateral external auditory canals, likely cerumen. Mild frontal scalp hematoma. IMPRESSION: No acute intracranial pathology identified. Mild frontal scalp hematoma.
[2017-07-31 18:48] VITALS: RESP 18
[2017-07-31 19:05] LABS: RBC URINE < 1 /hpf (0-3); URINE BILIRUBIN NEGATIVE (NEGATIVE); URINE BLOOD NEGATIVE (NEGATIVE); URINE COLOR Yellow (YELLOW); URINE GLUCOSE (UA) NORMAL (Normal); URINE KETONE NEGATIVE (NEGATIVE); URINE LEUKOCYTE ESTERASE NEG Leu/uL (Negative); URINE PROTEIN NEGATIVE (NEGATIVE); URINE UROBILINOGEN NORMAL mg/dL (0.2-1.0); WBC URINE 2 /hpf (0-5)
== END 2017-07-31 18:31 | disposition home or self-care (01) ==
LOC: C.ER 15:54
DX: F10.10 Alcohol abuse, uncomplicated (principal); Y90.9 Presence of alcohol in blood, level not specified; S09.90XA Unspecified injury of head, initial encounter; W19.XXXA Unspecified fall, initial encounter; Z91.81 History of falling
CPT/HCPCS: 70450; 80053; 81001; 85025; 99284; G0480

== ENCOUNTER 2017-08-25 06:45 | Emergency (ER) | payer OTHER ==
[2017-08-25 06:45] VITALS: BMI 28.3
[2017-08-25 06:59] VITALS: RESP 20; TEMP 97.3
--- NOTE | 2017-08-25 07:58 | C.PDOC ---
History Of Present Illness 51 y/o F c PMHx alcohol abuse p/w L sided thoracic pain x 1 week. Patient states she fell due to drinking and has had pain over her L sided ribs since then. Denies dyspnea, fever, cough, vomiting, abdominal pain. States she drank before arrival today. Time Seen by Provider: 08/25/17 07:08 Chief Complaint (Nursing): Abdominal Pain Past Medical History Vital Signs: Last Vital Signs Temp 97.3 F L 08/25/17 06:55 Pulse 103 H 08/25/17 09:00 Resp 20 08/25/17 09:00 BP 136/80 08/25/17 09:00 Pulse Ox 97 08/25/17 09:09 - Medical History PMH: Anxiety, Bipolar Disorder, Depression, Hepatitis Denies: Diabetes, HIV, HTN, Chronic Kidney Disease, Seizures, Sexually Transmitted Disease - [facility] Procedures GROUP PSYCHOTHERAPY (05/25/17) INDIV PSYCHOTHERAPY FOR SUBSTANCE ABUSE TREATMENT, SUPPORT (05/25/17) INDIV PSYCHOTHERAPY FOR SUBSTANCE ABUSE, PSYCHOEDUCATION (04/19/17) INDIVIDUAL PSYCHOTHERAPY, SUPPORTIVE (04/19/17) MEDICATION MANAGEMENT (10/07/16) MEDS MGMT FOR SUBSTANCE ABUSE TREATMENT, OTH REPL MED (10/07/16) Family History: States: Unknown Family Hx - Social History Hx Alcohol Use: Yes Hx Substance Use: Yes (used cocaine a long time ago) - Immunization History Hx Tetanus Toxoid Vaccination: No Hx Influenza Vaccination: No Hx Pneumococcal Vaccination: No Review Of Systems Except As Marked, All Systems Reviewed And Found Negative. Constitutional: Negative for: Fever Respiratory: Negative for: Cough Physical Exam - Physical Exam Additional Physical Exam Comments: Constitutional: No acute distress. Disheveled appearance. Alcohol on breath. Head: Normocephalic. Eyes: PERRL. ENT: Moist mucous membranes. Neck: Supple. Cardiovascular: Radial pulses 2+ bilaterally. Tachycardic. Chest: L sided thoracic tenderness over rib cage. Respiratory: Clear to auscultation bilaterally. GI: Soft. Nontender. Nondistended. No L sided abdominal tenderness. Back: No CVA tenderness. Musculoskeletal: No tenderness or swelling of extremities. FROM x 4. Skin: No rashes. Neurologic: Alert, no focal deficit. Steady gait. ED Course And Treatment O2 Sat by Pulse Oximetry: 97 Medical Decision Making Medical Decision Making: Will observe in ED until sober. Send for XR Ribs to rule out fracture or PTX. CXR negative for fracture or PTX. Patient steady. Ate while in ED. Discharged home, f/u primary care, return to ED for any problem. Disposition - Disposition Disposition: HOME/ ROUTINE Disposition Time: 08:59 Condition: STABLE Prescriptions: Ibuprofen [Motrin] 1 tab PO Q6 #30 tab Instructions: Rib Contusion (ED) Forms: [facility] ([place]) - Clinical Impression Clinical Impression: Chest wall pain
[2017-08-25 09:07] VITALS: BP 136/80; PULSE 103
[2017-08-25 09:09] VITALS: O2SAT 97
--- NOTE | 2017-08-25 13:07 | RAD ---
PROCEDURE: Chest left rib series 08/25/2017. HISTORY: Left-sided thoracic pain following fall COMPARISON: Comparison made with chest radiograph 07/23/2016 TECHNIQUE: Frontal radiograph of the chest and multiple oblique radiographs of the left ribs were. . FINDINGS: Re- demonstrated is a old healed fracture deformity of the right clavicle. . There also appears be a right apical pleural thickening. The possibility of a chronic fracture deformity of the right 1st or 2nd ribs cannot be completely excluded. Questionable old healed fracture deformity of the 1st or 2nd right rib. Of no definitive radiographic evidence of acute displaced left-sided rib fracture. No definitive radiographic evidence of pneumothorax however note that metallic hospital gown snaps partially obscures the left lung apex. If symptoms persist or occult fracture suspected clinically recommend followup CT scan of the chest. . The heart is enlarged. No infiltrate effusion or definitive radiographic evidence of pneumothorax. Biapical pleural thickening right greater than left felt present. Impression: No definitive radiographic evidence of acute displaced left-sided rib fracture deformities. . Consider followup CT scan of the chest if further evaluation required. Old fracture deformity of the right clavicle. Biapical pleural thickening. No definitive radiographic evidence of acute pneumothorax however note that the left lung apex is partially obscured by hospital gown metal snaps
== END 2017-08-25 09:12 | disposition home or self-care (01) ==
LOC: C.ER 06:45
DX: R07.89 Other chest pain (principal)

== ENCOUNTER 2017-12-29 20:37 | Emergency (ER) | payer OTHER ==
[2017-12-29 20:37] VITALS: BMI 28.3
[2017-12-29 21:41] VITALS: BP 98/64; PULSE 122; RESP 22; TEMP 98; O2SAT 98
--- NOTE | 2017-12-29 21:46 | C.PDOC ---
History Of Present Illness Patient is a 52 y/o female who presents to the ED requesting detox. Patient has lengthy Hx of psychiatric illnesses, alcohol abuse, and failed detoxes. Patient is verbal and ambulatory in ED. Admits to alcohol use today. No other physical complaints at this time. Time Seen by Provider: 12/29/17 21:44 Chief Complaint (Nursing): Substance Abuse History Per: Patient History/Exam Limitations: no limitations Onset/Duration Of Symptoms: Hrs Current Symptoms Are (Timing): Still Present Modifying Factor(s): Alcohol Recent travel outside of the [place]: No Past Medical History Reviewed: Historical Data, Nursing Documentation, Vital Signs Vital Signs: Last Vital Signs Temp 98 F 12/29/17 21:38 Pulse 122 H 12/29/17 21:38 Resp 22 12/29/17 21:38 BP 98/64 L 12/29/17 21:38 Pulse Ox 98 12/29/17 22:14 - Medical History PMH: Anxiety, Bipolar Disorder, Depression, Hepatitis Denies: Diabetes, HIV, HTN, Chronic Kidney Disease, Seizures, Sexually Transmitted Disease Surgical History: No Surg Hx - [facility] Procedures GROUP PSYCHOTHERAPY (05/25/17) INDIV PSYCHOTHERAPY FOR SUBSTANCE ABUSE TREATMENT, SUPPORT (05/25/17) INDIV PSYCHOTHERAPY FOR SUBSTANCE ABUSE, PSYCHOEDUCATION (04/19/17) INDIVIDUAL PSYCHOTHERAPY, COGNITIVE-BEHAVIORAL (04/19/17) INDIVIDUAL PSYCHOTHERAPY, SUPPORTIVE (04/19/17) MEDICATION MANAGEMENT (10/07/16) MEDS MGMT FOR SUBSTANCE ABUSE TREATMENT, OTH REPL MED (10/07/16) Family History: States: No Known Family Hx - Social History Hx Tobacco Use: No Hx Alcohol Use: Yes Hx Substance Use: Yes (used cocaine a long time ago) - Immunization History Hx Tetanus Toxoid Vaccination: No Hx Influenza Vaccination: No Hx Pneumococcal Vaccination: No Review Of Systems Neurological: Positive for: Other (EtOH use today) Psych: Positive for: Other (seeking detox treatment) Physical Exam - Physical Exam Appears: Non-toxic, No Acute Distress, Chronically Ill Skin: Normal Color, Warm, Dry Head: Atraumatic, Normacephalic Oral Mucosa: Moist Teeth: No Normal Dentition (scant, poor dentition) Cardiovascular: Rhythm Regular, No Murmur Respiratory: Normal Breath Sounds, No Rales, No Rhonchi, No Wheezing Neurological/Psych: Oriented x3, Normal Speech, Normal Cognition Gait: Steady ED Course And Treatment O2 Sat by Pulse Oximetry: 98 Progress Note: Crisis notified. Medical Decision Making Medical Decision Making: typical malingering, baseline psych, no acute issues Crisis defers Detox or psych adm at this time. stable for d/c. Patient left prior to receiving discharge papers. Disposition Doctor Will See Patient In The: Office Counseled Patient/Family Regarding: Studies Performed, Diagnosis - Disposition Referrals: Alcoholics Anonymous [Outside] [facility] [Outside] [facility] [Outside] [facility] [Outside] Disposition: HOME/ ROUTINE Disposition Time: 21:46 Condition: GOOD Additional Instructions: continue to seek outpatient therapy and detox as available Call the numbers below for resources Seek AA. Instructions: Alcohol Abuse and Alcoholism (DC) Forms: [facility] (Iranian) - Clinical Impression Clinical Impression: Alcohol abuse - Scribe Statement The provider has reviewed the documentation as recorded by the Scribe Varsha Da Silva All medical record entries made by the Scribe were at my direction and personally dictated by me. I have reviewed the chart and agree that the record accurately reflects my personal performance of the history, physical exam, medical decision making, and the department course for this patient. I have also personally directed, reviewed, and agree with the discharge instructions and disposition.
== END 2017-12-29 22:11 | disposition home or self-care (01) ==
LOC: C.ER 20:37
DX: F10.10 Alcohol abuse, uncomplicated (principal)

== ENCOUNTER 2017-12-30 09:19 | Inpatient (IN) | payer OTHER, MEDICAID ==
[2017-12-30 09:19] VITALS: BMI 28.3
[2017-12-30 10:39] LABS: BASO % 0.6 % (0.0-2.0); EOS % 0.2 % (0.0-4.0); HEMOGLOBIN 11.7 g/dL (11.0-16.0); LYMPH # 1.2 K/uL (1.0-4.3); LYMPH % 14.7 % (20.0-40.0); MEAN CORPUSCULAR HEMOGLOBIN 30.7 pg (27.0-31.0); MEAN CORPUSCULAR HGB CONC 33.4 g/dL (33.0-37.0); MEAN PLATELET VOLUME 7.8 fL (7.2-11.7); MONO # 0.6 K/uL (0.0-0.8); MONO % 7.6 % (0.0-10.0); NEUT # 6.1 K/uL (1.8-7.0); NEUT % 76.9 % (50.0-75.0); RBC 3.81 Mil/uL (3.80-5.20); RED CELL DISTRIBUTION WIDTH 17.4 % (11.5-14.5)
[2017-12-30 10:47] LABS: HCG,QUALITATIVE URINE NEGATIVE (NEGATIVE)
[2017-12-30 10:51] LABS: SQUAMOUS EPITHIAL 27 /hpf (0-5); URINE BACTERIA OCC (<OCC); URINE BILIRUBIN NEGATIVE (NEGATIVE); URINE BLOOD NEGATIVE (NEGATIVE); URINE CLARITY Hazy (Clear); URINE COLOR Amber (YELLOW); URINE GLUCOSE (UA) NORMAL (Normal); URINE LEUKOCYTE ESTERASE 3+ Leu/uL (Negative); URINE PROTEIN 1+ mg/dL (NEGATIVE)
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
[2017-12-30 10:55] LABS: BARBITURATES, UR NEGATIVE (NEGATIVE); BENZODIAZEPINES, UR NEGATIVE (NEGATIVE); PHENCYCLIDINE, UR NEGATIVE (NEGATIVE)
[2017-12-30 10:57] LABS: OPIATES, UR NEGATIVE (NEGATIVE)
[2017-12-30 11:02] LABS: ALB/GLOB RATIO 1.2 (1.0-2.1); ALBUMIN 4.3 g/dL (3.5-5.0); ALT/SGPT 37 U/L (9-52); AST/SGOT 33 U/L (14-36); BLOOD UREA NITROGEN 17 mg/dL (7-17); CALCIUM 9.4 mg/dl (8.6-10.4); GFR AFRICAN-AMERICAN > 60; GFR NON-AFRICAN AMERICAN > 60
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
--- NOTE | 2017-12-30 15:59 | PCM.BM ---
<Petra Wood - Last Filed: 12/30/17 15:57> Treatment Plan Problems - Problems identified on initial assessmt alcohol dependence Date Initiated: 12/30/17 Time Initiated: 15:30 Assessment reference: NA Status: Active Treatment assets and liabiliti Patient Assests: cooperative, ADL independent, negotiates basic needs Patient Liabilities: live alone, substance abuse - Milieu Protocol Maintain good personal hygiene: daily Encourage regular showers, daily Remind patient to perform daily oral care, daily Assist patient to perform ADL's Maintain personal safety: every shift Educate patient to report safety concerns to staff, every shift Monitor environment for contraband/sharps Medication safety: Monitor for expected outcome, potential side effects: every shift, Assess barriers to learning: every shift, Assess readiness for medication education: every shift <Evette Hood - Last Filed: 01/01/18 08:07> Family Contact Family involvement: Famliy/SO not involved - Goals for Treatment Patient goals for treatment: Complete detox and discuss aftercare options with discharge planners. Discharge/Continuing Care - Education Needs Education Needs: Patient Medication, Patient Diagnosis/Disease Process, Patient Coping Skills, Patient Anger Management skills, Patient Placement options, Patient Community resources, Significant Other Medication, Significant Other Diagnosis/Disease Process, Significant Other Coping Skills, Significant Other Anger Management skills, Significant Other Placement options, Significant Other Community resources - Discharge Discharge Criteria: Ability to care for self, No longer exhibiting s/s of withdrawal, Reduction of target symptoms Discharge to:: Other - Treatment Team Participation Discussed with Family/SO: No Was Patient/Family/SO present at Treatment Team Meeting: Yes <Matias Walsh - Last Filed: 01/01/18 22:28> - Diagnosis (1) Alcohol use disorder, severe, dependence Status: Acute Interventions: 01/01/18 22:28 * Assess 7x/week regarding severity of withdrawal * Educate regarding risks, benefits, side effects and alternatives of medications * Use Motivational Interviewing for abstinence * Use CBT for relapse prevention * Medication management for withdrawal symptoms * Encourage medication assisted treatment * (2) Depression, major, severe recurrence Status: Acute Interventions: 01/01/18 22:29 * Assess/adjust medications daily and /or as needed * See patient on an individual basis 7x/week to assess symptoms of depression * Monitor for side effects & effectiveness of medications * <Nicole Lam - Last Filed: 01/03/18 13:56> Family Contact Family involvement: Famliy/SO not involved - Goals for Treatment Patient goals for treatment: "I want to go back with my ." Discharge/Continuing Care - Education Needs Education Needs: Patient Medication, Patient Coping Skills, Patient Placement options, Patient Community resources - Discharge Discharge Criteria: Tolerates medication w/o severe side effects, No longer exhibiting s/s of withdrawal, Reduction of target symptoms Discharge to:: Home - Treatment Team Participation Discussed with Family/SO: No Was Patient/Family/SO present at Treatment Team Meeting: Yes
[2017-12-30] MEDS: Multiple Vitamins Tab PO SCH (17:22)
[2017-12-31] MEDS: Multiple Vitamins Tab PO SCH (10:04)
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
[2018-01-01] MEDS: Multiple Vitamins Tab PO SCH (09:56)
[2018-01-01] MEDS ORDERED: Pneumococcal 23-Valent Vaccine IM ONE (10:00)
[2018-01-01] MEDS ORDERED: Influenza Vaccine 60 mcg/0.5 mL SYR (4YR UP) IM ONE (10:00)
--- NOTE | 2018-01-01 13:27 | PCM.PYCHPN ---
Psychiatric Progress Note - Psychiatric Progress Note Patient seen today, length of contact: 16 minutes Patient Chief Complaint: "I heard some voices and want to hurt myself" Problems Identified/Issues Discussed: The pt is seen, chart reviewed, case discussed with staff. Support given, CBT and [place] used briefly Patient stated she heard voices last night telling her to harm herself. She did not say spefically what the voices were telling her to do. She did not hear these voices this morning. She is very stressed because she does not have access to her phone which she uses as a distraction and she doesn't want to be on the streets following discharge. She also believes her and another detoxing patient, who is her ex-, are currently a couple and she is relying heavily on him and not focusing her care on herself. She is preoccupied with the wellbeing of the other patient. Due to suicidal ideations she is being transferred to the psychiatric floor. No SEs from medications, risks discussed. After care discussed. Considering rehab following discharge. Medication Change: Yes (detox changes daily) Medical Record Reviewed: Yes Mental Status Examination - Cognitive Function Orientation: Person, Place, Situation, Time Memory: Intact Attention: WNL Concentration: WNL Association: WNL Fund of Knowledge: WNL - Mood Mood: Depressed, Anxious - Affect Affect: Constricted - Speech Speech: Soft - Language Language: Word Retrieval - Formal Thought Process Formal Thought Process: Hallucinations (head voices last night suggesting to kill herself) - Suicidal Ideation Suicidal Ideation: Yes Plan: did not describe a plan - Homicidal Ideation Homicidal Ideation: No Goal/Treatment Plan - Goal/Treatment Plan Need for Continued Stay: Remain at risks for inpatient hospitalization, Discharge may exacerbated symptoms, Severe functional impairment Progress Toward Problem(s) and Goals/Treatment Plan: Alcohol detox - Librium taper Gabapentin for augmentation As needed medications All risks, benefits and alternatives of the meds discussed, and the pt agreed and understood. Attend groups and activities Supportive therapy and psychoeducation [place] for abstinence CBT for relapse prevention Encourage MAT Refer to rehab or IOP, and self-help groups Major Depression Prozac UTI Macrobid Estimated Date of D/C: 01/06/18
[2018-01-02] MEDS: Multiple Vitamins Tab PO SCH (10:04)
--- NOTE | 2018-01-02 10:57 | PCM.PYCHPN ---
Psychiatric Progress Note - Psychiatric Progress Note Patient seen today, length of contact: 17 minutes Patient Chief Complaint: "I'm really anxious" Problems Identified/Issues Discussed: The pt is seen, chart reviewed, case discussed with staff. Support given, CBT and [place] used briefly Patient states that she is feeling very anxious about her upcoming discharge, her plans for rehab afterwards, and what is going to happen to her ex- ( another detox patient who was discharged today). She continues to seem more concerned with what will happen to him, then her own well being. Patient was consoled, and it was explained to her that she requires a higher level of care that he does, and that it will be in her best interest to begin focusing on herself. In the meantime, arrangements were made for her ex- to remain in contact with her and visit her during appropriate hours of the day. Patient expressed her understanding and agrees. No SEs from medications noted, risks discussed. After care discussed. Medication Change: Yes (detox changes daily) Medical Record Reviewed: Yes Mental Status Examination - Cognitive Function Orientation: Person, Place, Situation, Time Memory: Intact Attention: WNL Concentration: WNL Association: [facility] Fund of Knowledge: [facility] - Mood Mood: Depressed, Anxious - Affect Affect: Constricted - Speech Speech: Soft - Language Language: Word Retrieval - Formal Thought Process Formal Thought Process: Hallucinations (head voices last night suggesting to kill herself) - Suicidal Ideation Suicidal Ideation: Yes Plan: no specific plan, just hearing voices telling her to kill herself - Homicidal Ideation Homicidal Ideation: No Goal/Treatment Plan - Goal/Treatment Plan Need for Continued Stay: Remain at risks for inpatient hospitalization, Discharge may exacerbated symptoms, Severe functional impairment Progress Toward Problem(s) and Goals/Treatment Plan: Alcohol detox - Librium taper Gabapentin for augmentation As needed medications All risks, benefits and alternatives of the meds discussed, and the pt agreed and understood. Attend groups and activities Supportive therapy and psychoeducation [place] for abstinence CBT for relapse prevention Encourage MAT Refer to rehab or IOP, and self-help groups Major Depression eWndy CHANCE Macrobid Estimated Date of D/C: 01/06/18 - Smoking Cessation Smoking Cessation Initiated: No
--- NOTE | 2018-01-02 22:28 | CARD ---
APPROVED REPORT EKG Measurement Heart [id number] <Conclusion> Sinus tachycardia Otherwise normal ECG
[2018-01-03] MEDS: Multiple Vitamins Tab PO SCH (09:59)
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
[2018-01-04] MEDS: Multiple Vitamins Tab PO SCH (10:58)
--- NOTE | 2018-01-04 23:50 | PCM.PYCHPN ---
Psychiatric Progress Note - Psychiatric Progress Note Patient seen today, length of contact: 16 min Patient Chief Complaint: You are lying, no one trust me.' Problems Identified/Issues Discussed: Patient seen and evaluated, chart reviewed and discussed with the nurse. Patient remained disorganized and internally preoccupied. Patient remained isolated, confined and withdrawn. Patient still appears paranoid and delusional. However, she denies any suicidal ideation or homicidal ideation. She is taking medication and denies any side effects. Symptoms are improving but she needs more time for stabilization. Supportive therapy and psychoeducation were given. Medication Change: Yes (haldol ) Medical Record Reviewed: Yes Mental Status Examination - Cognitive Function Orientation: Person, Place, Situation, Time Memory: Intact Attention: WNL Concentration: Poor Association: Loose Fund of Knowledge: Poor - Mood Mood: Depressed, Anxious - Affect Affect: Constricted - Speech Speech: Soft - Language Language: Word Retrieval - Formal Thought Process Formal Thought Process: Hallucinations (head voices last night suggesting to kill herself), Delusions, Paranoia - Suicidal Ideation Suicidal Ideation: No - Homicidal Ideation Homicidal Ideation: No Goal/Treatment Plan - Goal/Treatment Plan Need for Continued Stay: Remain at risks for inpatient hospitalization, Discharge may exacerbated symptoms, Severe functional impairment Progress Toward Problem(s) and Goals/Treatment Plan: Alcohol Withdrawal Alcohol Use d/o - severe Major Depression d/o - severe Alcohol detox - Librium taper Gabapentin for augmentation As needed medications Attend groups and activities Supportive therapy and psychoeducation [place] for abstinence CBT for relapse prevention Encourage MAT Refer to rehab or IOP, and self-help groups Major Depression Prozac UTI Macrobid Estimated Date of D/C: 01/07/18 - Smoking Cessation Smoking Cessation Initiated: No
[2018-01-05] MEDS: Multiple Vitamins Tab PO SCH (09:47)
--- NOTE | 2018-01-05 12:50 | PCM.PYCHPN ---
Psychiatric Progress Note - Psychiatric Progress Note Patient seen today, length of contact: 16 min Medication Change: Yes (haldol ) Medical Record Reviewed: Yes Mental Status Examination - Cognitive Function Orientation: Person, Place, Situation, Time Memory: Intact Attention: WNL Concentration: WNL Association: WNL Fund of Knowledge: WNL - Mood Mood: Depressed, Anxious - Affect Affect: Constricted - Speech Speech: Soft - Language Language: Word Retrieval - Formal Thought Process Formal Thought Process: Hallucinations (head voices last night suggesting to kill herself), Paranoia - Suicidal Ideation Suicidal Ideation: No - Homicidal Ideation Homicidal Ideation: No Goal/Treatment Plan - Goal/Treatment Plan Need for Continued Stay: Remain at risks for inpatient hospitalization, Discharge may exacerbated symptoms, Severe functional impairment Progress Toward Problem(s) and Goals/Treatment Plan: Alcohol Withdrawal Alcohol Use d/o - severe Major Depression d/o - severe - Recommended/Plan of Treatment Treatment Recommendations and Plan of Treatment: Alcohol detox - Librium taper Gabapentin for augmentation As needed medications All risks, benefits and alternatives of the meds discussed, and the pt agreed and understood. Attend groups and activities Supportive therapy and psychoeducation [place] for abstinence CBT for relapse prevention Encourage MAT Refer to rehab or IOP, and self-help groups Major Depression Wendy CHANCE Macrobid Estimated Date of D/C: 01/07/18
[2018-01-06] MEDS: Multiple Vitamins Tab PO SCH (09:09)
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
[2018-01-07 04:57] VITALS: O2SAT 95
[2018-01-07] MEDS: Multiple Vitamins Tab PO SCH (10:00)
--- NOTE | 2018-01-07 14:06 | PCM.PYCHPN ---
Psychiatric Progress Note - Psychiatric Progress Note Patient seen today, length of contact: 18 min Patient Chief Complaint: "I'm doing better" Problems Identified/Issues Discussed: The pt is seen, chart reviewed, case discussed with staff. Patient states that she is feeling somewhat better today. She admits to hearing voices again yesterday, but they were much softer. She appears to be calmer, speaking more often and less anxious today. Denies current suicidal ideations this morning. Further support was given, focusing on taking care of herself over these other men in her life.No SEs from medications noted, risks discussed. After care was also discussed, patient unsure of what she should do at this time. No other remarkable events noted. Medication Change: Yes (psych changes daily) Medical Record Reviewed: Yes Mental Status Examination - Cognitive Function Orientation: Person, Place, Situation, Time Memory: Intact Attention: WNL Concentration: WNL Association: WN Fund of Knowledge: WN - Mood Mood: Depressed, Anxious - Affect Affect: Constricted - Speech Speech: Soft - Language Language: Word Retrieval - Formal Thought Process Formal Thought Process: Hallucinations (head voices last night suggesting to kill herself), Paranoia - Suicidal Ideation Suicidal Ideation: No - Homicidal Ideation Homicidal Ideation: No Goal/Treatment Plan - Goal/Treatment Plan Need for Continued Stay: Remain at risks for inpatient hospitalization, Severe depression anxiety, Discharge may exacerbated symptoms, Severe functional impairment Progress Toward Problem(s) and Goals/Treatment Plan: Alcohol detox Librium taper ended As needed medications Attend groups and activities Supportive therapy and psychoeducation [place] for abstinence CBT for relapse prevention Encourage MAT Refer to rehab or IOP, and self-help groups Schizoaffective disorder: Armond Patricia for side-effects UTI: Macrobid ended - Smoking Cessation Smoking Cessation Initiated: No
[2018-01-08] MEDS: Multiple Vitamins Tab PO SCH (09:04)
--- NOTE | 2018-01-08 12:38 | PCM.PYCHPN ---
Psychiatric Progress Note - Psychiatric Progress Note Patient seen today, length of contact: 19 min Patient Chief Complaint: "I don't feel good" Problems Identified/Issues Discussed: The pt is seen, chart reviewed, case discussed with staff. Patient states that she does not feel good today. When asked why, she explains that "I don't know why, I have a lot of problems". She admits to hearing voices last night that told her that her friend killed himself. However, she denies current suicidal ideations this morning. Patient continues to elaborate that her and her "ex- " have settlement money coming soon, and that they having a meeting with a customer account coordinator, but this worries her because they do not have any form of snf or recycling worker plan. Further support was given, again, focusing on taking care of herself over these other men in her life. No SEs from medications noted, risks discussed. After care was also discussed, patient unsure of what she should do at this time. No other remarkable events noted. Medication Change: Yes (psych changes daily) Medical Record Reviewed: Yes Mental Status Examination - Cognitive Function Orientation: Person, Place, Situation, Time Memory: Intact Attention: WNL Concentration: WNL Association: [facility] Fund of Knowledge: WN - Mood Mood: Depressed, Anxious - Affect Affect: Constricted - Speech Speech: Soft - Language Language: Word Retrieval - Formal Thought Process Formal Thought Process: Hallucinations (head voices last night that said her friend killed himself), Paranoia - Suicidal Ideation Suicidal Ideation: No - Homicidal Ideation Homicidal Ideation: No Goal/Treatment Plan - Goal/Treatment Plan Need for Continued Stay: Remain at risks for inpatient hospitalization, Severe depression anxiety, Discharge may exacerbated symptoms, Severe functional impairment Progress Toward Problem(s) and Goals/Treatment Plan: Alcohol detox Librium taper ended As needed medications Attend groups and activities Supportive therapy and psychoeducation [place] for abstinence CBT for relapse prevention Encourage MAT Refer to rehab or IOP, and self-help groups Schizoaffective disorder: Armond Patricia for side-effects UTI: Macrobid ended Estimated Date of D/C: 01/13/18 (Patient requires more time for stabilization) - Smoking Cessation Smoking Cessation Initiated: No
[2018-01-09 06:30] VITALS: RESP 20
[2018-01-09] MEDS: Multiple Vitamins Tab PO SCH (09:52)
--- NOTE | 2018-01-09 12:16 | PCM.PYCHPN ---
Psychiatric Progress Note - Psychiatric Progress Note Patient seen today, length of contact: 16 min Patient Chief Complaint: "I am not well yet" Problems Identified/Issues Discussed: The pt is seen, chart reviewed, case discussed with staff. Support given, CBT and [place] used briefly No new symptoms reported, improving slowly and needs more time Still fixated on his ex-BF's condition No SEs from medications, risks discussed. After care discussed Medication Change: Yes (psych changes daily) Medical Record Reviewed: Yes Mental Status Examination - Cognitive Function Orientation: Person, Place, Situation, Time Memory: Intact Attention: WNL Concentration: WNL Association: WN Fund of Knowledge: [facility] - Mood Mood: Depressed, Anxious - Affect Affect: Constricted - Speech Speech: Soft - Language Language: Word Retrieval - Formal Thought Process Formal Thought Process: Hallucinations (head voices last night that said her friend killed himself), Paranoia - Suicidal Ideation Suicidal Ideation: No - Homicidal Ideation Homicidal Ideation: No Goal/Treatment Plan - Goal/Treatment Plan Need for Continued Stay: Remain at risks for inpatient hospitalization, Severe depression anxiety, Discharge may exacerbated symptoms, Severe functional impairment Progress Toward Problem(s) and Goals/Treatment Plan: Alcohol detox Librium taper ended As needed medications Attend groups and activities Supportive therapy and psychoeducation [place] for abstinence CBT for relapse prevention Encourage MAT Refer to rehab or IOP, and self-help groups Schizoaffective disorder: Armond Patricia for side-effects UTI: Macrobid ended Estimated Date of D/C: 01/13/18 (Patient requires more time for stabilization)
[2018-01-10 06:36] VITALS: TEMP 98.1
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
[2018-01-10] MEDS: Multiple Vitamins Tab PO SCH (10:03)
[2018-01-10 12:27] VITALS: BP 105/70; PULSE 88
== END 2018-01-10 12:40 | disposition home or self-care (01) | DRG 895 ==
LOC: C.ER 09:19 → C.7D 14:10 → C.5E 01-01 11:59
PROVIDERS: ADMIT Psychiatry & Neurology Psychiatry; ATTEND Psychiatry & Neurology Psychiatry
PROC: HZ2ZZZZ Detoxification Services for Substance Abuse Treatment (ICD-10-PCS; principal; 2017-12-30)
PROC: HZ56ZZZ Individual Psychotherapy for Substance Abuse Treatment, Psychoeducation (ICD-10-PCS; 2017-12-30)
PROC: GZ3ZZZZ Medication Management (ICD-10-PCS; 2017-12-30)
PROC: HZ59ZZZ Individual Psychotherapy for Substance Abuse Treatment, Supportive (ICD-10-PCS; 2017-12-30)
PROC: GZHZZZZ Group Psychotherapy (ICD-10-PCS; 2017-12-30)
PROC: GZ56ZZZ Individual Psychotherapy, Supportive (ICD-10-PCS; 2017-12-30)
DX: F10.230 Alcohol dependence with withdrawal, uncomplicated (principal); F33.2 Major depressive disorder, recurrent severe without psychotic features; R45.851 Suicidal ideations; N39.0 Urinary tract infection, site not specified; F25.9 Schizoaffective disorder, unspecified; Z59.0 Homelessness; Z91.5 Personal history of self-harm

== ENCOUNTER 2018-02-03 19:02 | Emergency (ER) | payer OTHER ==
[2018-02-03 19:02] VITALS: BMI 28.3
[2018-02-03 19:12] VITALS: BP 128/84; PULSE 119; RESP 18; TEMP 97.5; O2SAT 97
--- NOTE | 2018-02-03 19:21 | C.PDOC ---
History Of Present Illness 52 year old female is brought in by EMS for alcohol intoxication. Patient was brought in from a snf for heavy alcohol intake. Patient has perdue history of chronic alcohol intake in the past. Patient denies SI/HI, hallucinations, CP, SOB, abdominal pain. Chief Complaint (Nursing): Substance Abuse History Per: Patient, EMS History/Exam Limitations: no limitations Onset/Duration Of Symptoms: Hrs Current Symptoms Are (Timing): Still Present Suicide/Self Injury Attempted (Context): None Modifying Factor(s): Alcohol Associated Symptoms: denies: Depression, Suicidal Thoughts, Suicidal Plan Recent travel outside of the [place]: No Additional History Per: Patient Past Medical History Reviewed: Historical Data, Nursing Documentation, Vital Signs Vital Signs: Last Vital Signs Temp 97.5 F L 02/03/18 19:05 Pulse 119 H 02/03/18 19:05 Resp 18 02/03/18 19:05 BP 128/84 02/03/18 19:05 Pulse Ox 97 02/03/18 19:29 - Medical History PMH: Anxiety, Bipolar Disorder, Depression, Hepatitis Denies: Diabetes, HIV, HTN, Chronic Kidney Disease, Seizures, Sexually Transmitted Disease Surgical History: No Surg Hx - [facility] Procedures DETOXIFICATION SERVICES FOR SUBSTANCE ABUSE TREATMENT (12/30/17) GROUP PSYCHOTHERAPY (12/30/17) INDIV PSYCHOTHERAPY FOR SUBSTANCE ABUSE TREATMENT, SUPPORT (12/30/17) INDIV PSYCHOTHERAPY FOR SUBSTANCE ABUSE, PSYCHOEDUCATION (12/30/17) INDIVIDUAL PSYCHOTHERAPY, COGNITIVE-BEHAVIORAL (04/19/17) INDIVIDUAL PSYCHOTHERAPY, SUPPORTIVE (12/30/17) MEDICATION MANAGEMENT (12/30/17) MEDS MGMT FOR SUBSTANCE ABUSE TREATMENT, OTH REPL MED (10/07/16) Family History: States: Unknown Family Hx - Social History Hx Tobacco Use: No Hx Alcohol Use: Yes Hx Substance Use: Yes - Immunization History Hx Tetanus Toxoid Vaccination: No Hx Influenza Vaccination: No Hx Pneumococcal Vaccination: No Review Of Systems Constitutional: Negative for: Fever, Chills Cardiovascular: Negative for: Chest Pain Respiratory: Negative for: Shortness of Breath Gastrointestinal: Negative for: Abdominal Pain Skin: Negative for: Rash Neurological: Negative for: Weakness, Numbness Psych: Negative for: Depression, Suicidal ideation Physical Exam - Physical Exam Appears: Non-toxic, Unkempt, Other (alcohol on breath) Skin: Normal Color, Warm, Dry Head: Atraumatic, Normacephalic Eye(s): bilateral: Normal Inspection Nose: No Discharge Oral Mucosa: Moist Neck: Normal ROM, Supple Chest: Symmetrical Cardiovascular: Rhythm Regular, No Murmur Respiratory: Normal Breath Sounds, No Rales, No Rhonchi, No Wheezing Gastrointestinal/Abdominal: Soft, No Tenderness, No Guarding, No Rebound Extremity: Normal ROM, No Tenderness, No Swelling Neurological/Psych: Oriented x3, No Normal Speech (speech slurred secondary to alcohol intake) ED Course And Treatment O2 Sat by Pulse Oximetry: 97 (On RA) Pulse Ox Interpretation: Normal Progress Note: 1927H Patient wanted to be discharged with her boyfriend. Vital signs stable, alert and conscious. Reevaluation Time: 19:29 Reassessment Condition: Improved Medical Decision Making Medical Decision Making: Impression: alcohol intoxication Plan: * Labs * UA Disposition Counseled Patient/Family Regarding: Diagnosis - Disposition Referrals: [facility] [Outside] Disposition: HOME/ ROUTINE Disposition Time: 19:29 Condition: STABLE Instructions: Alcohol Abuse and Alcoholism (DC) Forms: [employer] (East [place]orese) - POA Present On Arrival: None - Clinical Impression Clinical Impression: Alcohol intoxication, Alcohol abuse - Scribe Statement The provider has reviewed the documentation as recorded by the Scribe Provider Attestation: Roly Bolaños All medical record entries made by the Scribe were at my direction and personally dictated by me. I have reviewed the chart and agree that the record accurately reflects my personal performance of the history, physical exam, medical decision making, and the department course for this patient. I have also personally directed, reviewed, and agree with the discharge instructions and disposition.
[2018-02-03 19:30] LABS: BASO # 0.1 K/uL (0.0-0.2); BASO % 1.1 % (0.0-2.0); EOS # 0.1 K/uL (0.0-0.7); EOS % 0.9 % (0.0-4.0); HEMOGLOBIN 12.1 g/dL (11.0-16.0); LYMPH # 2.1 K/uL (1.0-4.3); LYMPH % 29.8 % (20.0-40.0); MEAN CELL VOLUME 91.4 fL (81.0-99.0); MEAN CORPUSCULAR HEMOGLOBIN 30.6 pg (27.0-31.0); MEAN CORPUSCULAR HGB CONC 33.5 g/dL (33.0-37.0); MEAN PLATELET VOLUME 8.4 fL (7.2-11.7); MONO # 0.5 K/uL (0.0-0.8); MONO % 6.7 % (0.0-10.0); NEUT # 4.3 K/uL (1.8-7.0); NEUT % 61.5 % (50.0-75.0); RBC 3.96 Mil/uL (3.80-5.20); RED CELL DISTRIBUTION WIDTH 16.2 % (11.5-14.5); WHITE BLOOD COUNT 6.9 K/uL (4.8-10.8)
== END 2018-02-03 19:50 | disposition home or self-care (01) ==
LOC: C.ER 19:02
DX: F10.129 Alcohol abuse with intoxication, unspecified (principal)

== ENCOUNTER 2018-02-09 12:12 | Emergency (ER) | payer OTHER ==
[2018-02-09 12:13] VITALS: BMI 28.3
[2018-02-09 12:26] VITALS: O2SAT 97
[2018-02-09] MEDS ORDERED: Sodium Chloride 0.9% 1,000 ML IV ONE (13:19)
[2018-02-09] MEDS ORDERED: DiphenhydrAMINE 50 mg/ml Inj IVP STA (13:19)
[2018-02-09 13:37] LABS: BASO # 0.1 K/uL (0.0-0.2); BASO % 0.7 % (0.0-2.0); EOS % 0.5 % (0.0-4.0); HEMOGLOBIN 12.7 g/dL (11.0-16.0); LYMPH # 1.5 K/uL (1.0-4.3); LYMPH % 19.4 % (20.0-40.0); MEAN CELL VOLUME 91.6 fL (81.0-99.0); MEAN CORPUSCULAR HEMOGLOBIN 30.8 pg (27.0-31.0); MEAN CORPUSCULAR HGB CONC 33.6 g/dL (33.0-37.0); MEAN PLATELET VOLUME 7.8 fL (7.2-11.7); MONO # 0.3 K/uL (0.0-0.8); MONO % 3.9 % (0.0-10.0); NEUT # 5.8 K/uL (1.8-7.0); NEUT % 75.5 % (50.0-75.0); RBC 4.11 Mil/uL (3.80-5.20); RED CELL DISTRIBUTION WIDTH 16.2 % (11.5-14.5); WHITE BLOOD COUNT 7.7 K/uL (4.8-10.8)
[2018-02-09 13:49] LABS: ALB/GLOB RATIO 1.1 (1.0-2.1); ALBUMIN 4.4 g/dL (3.5-5.0); ALT/SGPT 27 U/L (9-52); AST/SGOT 55 U/L (14-36); BLOOD UREA NITROGEN 8 mg/dL (7-17); CALCIUM 8.4 mg/dl (8.6-10.4); GFR AFRICAN-AMERICAN > 60; GFR NON-AFRICAN AMERICAN > 60
--- NOTE | 2018-02-09 14:11 | C.PDOC ---
History Of Present Illness 52 years old female with history of alcohol abuse presents to ED requesting detox. As per , patient fell yesterday, hit her face and has left eye swelling. Denies LOC or vomiting. Patient states she needs help but is also asking to leave and wants to go drink more. Time Seen by Provider: 02/09/18 12:52 Chief Complaint (Nursing): Substance Abuse History Per: Patient, Family ( ) History/Exam Limitations: no limitations Onset/Duration Of Symptoms: Hrs Current Symptoms Are (Timing): Still Present Suicide/Self Injury Attempted (Context): None Modifying Factor(s): Alcohol Associated Symptoms: denies: Suicidal Thoughts, Suicidal Plan Involuntary Hold By: None Recent travel outside of the [place]: No Past Medical History Reviewed: Historical Data, Nursing Documentation, Vital Signs Vital Signs: Last Vital Signs Temp 97.3 F L 02/09/18 15:00 Pulse 131 H 02/09/18 15:00 Resp 18 02/09/18 15:00 BP 134/96 H 02/09/18 15:00 Pulse Ox 97 02/09/18 15:01 - Medical History PMH: Anxiety, Bipolar Disorder, Depression, Hepatitis - [facility] Procedures DETOXIFICATION SERVICES FOR SUBSTANCE ABUSE TREATMENT (12/30/17) GROUP PSYCHOTHERAPY (01/31/18) INDIV PSYCHOTHERAPY FOR SUBSTANCE ABUSE TREATMENT, SUPPORT (12/30/17) INDIV PSYCHOTHERAPY FOR SUBSTANCE ABUSE, PSYCHOEDUCATION (12/30/17) INDIVIDUAL PSYCHOTHERAPY, BEHAVIORAL (01/31/18) INDIVIDUAL PSYCHOTHERAPY, COGNITIVE-BEHAVIORAL (04/19/17) INDIVIDUAL PSYCHOTHERAPY, SUPPORTIVE (12/30/17) MEDICATION MANAGEMENT (12/30/17) MEDS MGMT FOR SUBSTANCE ABUSE TREATMENT, OTH REPL MED (10/07/16) Family History: States: Unknown Family Hx - Social History Hx Tobacco Use: No Hx Alcohol Use: Yes Hx Substance Use: No - Immunization History Hx Tetanus Toxoid Vaccination: No Hx Influenza Vaccination: No Hx Pneumococcal Vaccination: No Review Of Systems Constitutional: Positive for: Other (Fell and hit face ). Negative for: Fever, Chills Eyes: Positive for: Other (Left eye swelling) Gastrointestinal: Negative for: Nausea, Vomiting, Diarrhea Neurological: Negative for: Weakness, Numbness, Other (LOC) Psych: Negative for: Suicidal ideation Physical Exam - Physical Exam Appears: No Acute Distress, Unkempt, Agitated, Other (Alcohol on breath. Crying) Skin: Ecchymosis Head: Atraumatic, Normacephalic, No Abrasion, No Laceration Eye(s): bilateral: PERRL, EOMI, right: Normal Inspection, left: Other (Upper eye inflamation and ecchymosis) Nose: Normal Oral Mucosa: Moist Neck: Supple Chest: Symmetrical, No Tenderness Cardiovascular: Rhythm Regular Respiratory: Normal Breath Sounds, No Decreased Breath Sounds, No Rales, No Rhonchi, No Wheezing Gastrointestinal/Abdominal: Soft, No Tenderness Back: Normal Inspection, No Vertebral Tenderness, No Paraspinal Tenderness Extremity: Normal ROM, No Tenderness, No Deformity, No Swelling Neurological/Psych: Oriented x3, Normal Speech, Normal Cognition, Other (no focal deficits ) Gait: Steady ED Course And Treatment - Laboratory Results Result Diagrams: 02/09/18 13:30 02/09/18 13:30 Lab Interpretation: No Acute Changes O2 Sat by Pulse Oximetry: 97 (RA) Pulse Ox Interpretation: Normal - CT Scan/US Maxillofacial CT Other Rad Studies (CT/US): Read By Radiologist, Radiology Report Reviewed CT/US Interpretation: CT maxillofacial. History: Left eye injury. Comparison: None available. Technique: Multiple contiguous axial images were performed through the maxillofacial region without the use of intravenous contrast. Subsequently, sagittal and coronal reformatted images were obtained. Findings: Soft tissue swelling overlying the left frontal cranium and periorbital region. Prominent left periorbital edema and hemorrhage with punctate foci of air seen both medially and lateral to the orbital globe. High attenuation material within the retrobulbar region of the left orbital globe with concerning for hemorrhage within the posterior aspect of the globe and or possible retinal detachment. In addition, there is focal increased attenuation seen inferior to the left orbital globe on the sagittal sequences series 601, image 58 which may represent some extra bulbar hemorrhage. Inward buckling and or bowing deformity of the right zygomatic arch suggestive for fracture deformity, possibly acute. Clinical correlation. Mild mucosal thickening of the right maxillary sinus and ethmoid air cells. Mastoid air cells are preserved. A few dental caries are noted particularly at the level of the right mandible and bilateral maxilla. Clinical correlation. Degenerative changes in the cervical spine with posterior disc osteophyte complex at the C3- 4 level. Impression: Soft tissue swelling overlying the left frontal cranium and periorbital region. Prominent left periorbital edema and hemorrhage with punctate foci of air seen both medially and lateral to the orbital globe. High attenuation material within the retrobulbar region of the left orbital globe with concerning for hemorrhage within the posterior aspect of the globe and or possible retinal detachment. In addition, there is focal increased attenuation seen inferior to the left orbital globe on the sagittal sequences series 601, image 58 which may represent some extra bulbar hemorrhage. Inward buckling and or bowing deformity of the right zygomatic arch suggestive for fracture deformity, possibly acute. Clinical correlation. Medical Decision Making Medical Decision Making: Plan: Administered Benadryl, Ativan and IV fluids. Ordered Maxillofacial and head CT, blood work and urinalysis. Contacted Crisis. CT reviewed, see full report. patient reassessed sitting in bed, still agitated and wanting to leave ED. Patient questioned regarding eye symptoms, she states she can see and only has swelling. I informed of findings. As per crisis there are no detox beds available. Patient does not have any SI/HI or express any thoughts that are harmful to self. Patient does not meet admission criteria. Patient is ambulatory with steady gait. Patient is to be discharged and given list of local detox centers. Disposition Counseled Patient/Family Regarding: Diagnosis, Need For Followup, Rx Given - Disposition Referrals: Castro Cruz [Staff Provider] - Disposition: HOME/ ROUTINE Disposition Time: 14:47 Condition: STABLE Additional Instructions: Please call [phone] or [phone] to inquire about our Detox availability , may speak to coordinator Evette Follow up with administrative support specialist Instructions: Eye Contusion (DC) Forms: [email or web address] (Turkmen) Print Language: BULGARIAN - POA Present On Arrival: None - Clinical Impression Clinical Impression: Traumatic orbital hematoma, Alcohol abuse - PA / MANAGER QA / Resident Statement MD/DO has reviewed & agrees with the documentation as recorded. - Scribe Statement The provider has reviewed the documentation as recorded by the Astridibtia Castelan All medical record entries made by the Scribe were at my direction and personally dictated by me. I have reviewed the chart and agree that the record accurately reflects my personal performance of the history, physical exam, medical decision making, and the department course for this patient. I have also personally directed, reviewed, and agree with the discharge instructions and disposition.
--- NOTE | 2018-02-09 14:43 | CT ---
CT maxillofacial History: Left eye injury. Comparison: None available. Technique: Multiple contiguous axial images were performed through the maxillofacial region without the use of intravenous contrast. Subsequently, sagittal and coronal reformatted images were obtained. Findings: Soft tissue swelling overlying the left frontal cranium and periorbital region. Prominent left periorbital edema and hemorrhage with punctate foci of air seen both medially and lateral to the orbital globe. High attenuation material within the retrobulbar region of the left orbital globe with concerning for hemorrhage within the posterior aspect of the globe and or possible retinal detachment. In addition, there is focal increased attenuation seen inferior to the left orbital globe on the sagittal sequences series 601, image 58 which may represent some extra bulbar hemorrhage. Inward buckling and or bowing deformity of the right zygomatic arch suggestive for fracture deformity, possibly acute. Clinical correlation. Mild mucosal thickening of the right maxillary sinus and ethmoid air cells. Mastoid air cells are preserved. A few dental caries are noted particularly at the level of the right mandible and bilateral maxilla. Clinical correlation. Degenerative changes in the cervical spine with posterior disc osteophyte complex at the C3-4 level. Impression: Soft tissue swelling overlying the left frontal cranium and periorbital region. Prominent left periorbital edema and hemorrhage with punctate foci of air seen both medially and lateral to the orbital globe. High attenuation material within the retrobulbar region of the left orbital globe with concerning for hemorrhage within the posterior aspect of the globe and or possible retinal detachment. In addition, there is focal increased attenuation seen inferior to the left orbital globe on the sagittal sequences series 601, image 58 which may represent some extra bulbar hemorrhage. Inward buckling and or bowing deformity of the right zygomatic arch suggestive for fracture deformity, possibly acute. Clinical correlation.
[2018-02-09 15:02] LABS: SQUAMOUS EPITHIAL 5 /hpf (0-5); URINE BACTERIA RARE (<OCC); URINE BILIRUBIN NEGATIVE (NEGATIVE); URINE BLOOD NEGATIVE (NEGATIVE); URINE CLARITY Clear (Clear); URINE COLOR Straw (YELLOW); URINE GLUCOSE (UA) NORMAL (Normal); URINE LEUKOCYTE ESTERASE NEG Leu/uL (Negative); URINE PROTEIN NEGATIVE (NEGATIVE); URINE UROBILINOGEN NORMAL mg/dL (0.2-1.0)
[2018-02-09 15:13] LABS: BARBITURATES, UR NEGATIVE (NEGATIVE); BENZODIAZEPINES, UR NEGATIVE (NEGATIVE); OPIATES, UR NEGATIVE (NEGATIVE); PHENCYCLIDINE, UR NEGATIVE (NEGATIVE)
[2018-02-09 15:28] VITALS: BP 134/96; PULSE 131; RESP 18; TEMP 97.3
--- NOTE | 2018-02-10 13:06 | CT ---
PROCEDURE: CT HEAD WITHOUT CONTRAST. HISTORY: fell yesterday, head injury COMPARISON: 07/31/2017 TECHNIQUE: Axial computed tomography images were obtained through the head/brain without intravenous contrast. Radiation dose: Total exam DLP = 925 mGy-cm. This CT exam was performed using one or more of the following dose reduction techniques: Automated exposure control, adjustment of the mA and/or kV according to patient size, and/or use of iterative reconstruction technique. FINDINGS: HEMORRHAGE: No intracranial hemorrhage. BRAIN: Bertrand-white differentiation appears intact. VENTRICLES: Unremarkable. No hydrocephalus. CALVARIUM: Inward buckling and/or bowing deformity of the right zygomatic arch, possibly acute. Clinical correlation. PARANASAL SINUSES: Unremarkable as visualized. No significant inflammatory changes. MASTOID AIR CELLS: Unremarkable as visualized. No inflammatory changes. OTHER FINDINGS: Mild left frontal and periorbital soft tissue swelling. IMPRESSION: Inward buckling and/or bowing deformity of the right zygomatic arch, possibly acute. Clinical correlation. Mild left frontal and periorbital soft tissue swelling. No additional acute intracranial abnormality. If symptoms persists, consider further evaluation with MRI.
== END 2018-02-09 15:00 | disposition home or self-care (01) ==
LOC: C.ER 12:12
DX: F10.10 Alcohol abuse, uncomplicated (principal); Y90.7 Blood alcohol level of 200-239 mg/100 ml; S05.12XA Contusion of eyeball and orbital tissues, left eye, initial encounter; W19.XXXA Unspecified fall, initial encounter; Y92.9 Unspecified place or not applicable
CPT/HCPCS: 70450; 70486; 80053; 81001; 85025; 96361; 96374; 99285; G0480; J1200; J7040

== ENCOUNTER 2018-02-10 14:30 | Emergency (ER) | payer OTHER ==
[2018-02-10 14:30] VITALS: BMI 28.3
[2018-02-10 15:27] VITALS: BP 123/77; PULSE 122; RESP 18; TEMP 98; O2SAT 97
--- NOTE | 2018-02-10 16:31 | C.PDOC ---
History Of Present Illness 52 year old female presents to the ED after being sent by Dr. Taran Mosher for alcohol detox. Patient denies active withdrawal symptoms as well as suicidal/ homicidal ideation and has no other complaints at this time. Time Seen by Provider: 02/10/18 16:03 Chief Complaint (Nursing): Substance Abuse History Per: Patient History/Exam Limitations: no limitations Onset/Duration Of Symptoms: Hrs Current Symptoms Are (Timing): Still Present Suicide/Self Injury Attempted (Context): None Modifying Factor(s): Alcohol Associated Symptoms: denies: Suicidal Thoughts, Suicidal Plan Involuntary Hold By: None Recent travel outside of the [place]: No Additional History Per: Patient Past Medical History Reviewed: Historical Data, Nursing Documentation, Vital Signs Vital Signs: Last Vital Signs Temp 98 F 02/10/18 15:22 Pulse 122 H 02/10/18 15:22 Resp 18 02/10/18 15:22 BP 123/77 02/10/18 15:22 Pulse Ox 97 02/10/18 16:40 - Medical History PMH: Anxiety, Bipolar Disorder, Depression, Hepatitis Denies: Diabetes, HIV, HTN, Chronic Kidney Disease, Seizures, Sexually Transmitted Disease Surgical History: No Surg Hx - [facility] Procedures DETOXIFICATION SERVICES FOR SUBSTANCE ABUSE TREATMENT (12/30/17) GROUP PSYCHOTHERAPY (01/31/18) INDIV PSYCHOTHERAPY FOR SUBSTANCE ABUSE TREATMENT, SUPPORT (12/30/17) INDIV PSYCHOTHERAPY FOR SUBSTANCE ABUSE, PSYCHOEDUCATION (12/30/17) INDIVIDUAL PSYCHOTHERAPY, BEHAVIORAL (01/31/18) INDIVIDUAL PSYCHOTHERAPY, COGNITIVE-BEHAVIORAL (04/19/17) INDIVIDUAL PSYCHOTHERAPY, SUPPORTIVE (12/30/17) MEDICATION MANAGEMENT (12/30/17) MEDS MGMT FOR SUBSTANCE ABUSE TREATMENT, OTH REPL MED (10/07/16) Family History: States: Unknown Family Hx - Social History Hx Tobacco Use: No Hx Alcohol Use: Yes Hx Substance Use: No - Immunization History Hx Tetanus Toxoid Vaccination: No Hx Influenza Vaccination: No Hx Pneumococcal Vaccination: No Review Of Systems Psych: Positive for: Other (alcohol detox ). Negative for: Suicidal ideation, Withdrawal Physical Exam - Physical Exam Appears: Non-toxic, No Acute Distress Skin: Normal Color, Warm, Dry Head: Atraumatic, Normacephalic Eye(s): bilateral: Normal Inspection Oral Mucosa: Moist Neck: Supple Chest: Symmetrical, No Deformity, No Tenderness Cardiovascular: Rhythm Regular, No Murmur Respiratory: Normal Breath Sounds, No Rales, No Rhonchi, No Wheezing Extremity: Normal ROM, Capillary Refill (less than 2 seconds ) Neurological/Psych: Oriented x3, Normal Speech, Normal Cognition ED Course And Treatment O2 Sat by Pulse Oximetry: 97 (on RA) Pulse Ox Interpretation: Normal Medical Decision Making Medical Decision Making: Assessment: alcohol detox Progress: Case discussed with chemical research worker, who states there are no detox beds available at this time. Case discussed with Dr. Taran Mosher. Patient has repeat heart rate of 96bpm. Patient is informed about the unavailability of detox beds. She is provided with a list of other facilities and is advised to contact them for further inquiry. Disposition Discussed With Dr.: Emerson Mosher Doctor Will See Patient In The: Office Counseled Patient/Family Regarding: Diagnosis, Need For Followup - Disposition Disposition: HOME/ ROUTINE Disposition Time: 16:29 Condition: STABLE Additional Instructions: follow up with your doctor in 2 days there aren't any beds currently available return to hospital at anytime continue home medications Instructions: Alcohol Abuse and Alcoholism (DC) Forms: [facility] (Kyrgyz), General Discharge Instructions - Clinical Impression Clinical Impression: Alcohol abuse - Scribe Statement The provider has reviewed the documentation as recorded by the Scribe (Emily Mosher) Provider Attestation: All medical record entries made by the Scribe were at my direction and personally dictated by me. I have reviewed the chart and agree that the record accurately reflects my personal performance of the history, physical exam, medical decision making, and the department course for this patient. I have also personally directed, reviewed, and agree with the discharge instructions and disposition.
== END 2018-02-10 17:15 | disposition home or self-care (01) ==
LOC: C.ER 14:30
DX: F10.10 Alcohol abuse, uncomplicated (principal); Y90.9 Presence of alcohol in blood, level not specified

== ENCOUNTER 2018-03-14 22:52 | Inpatient (IN) | payer MEDICARE, MEDICAID ==
[2018-03-14 22:53] VITALS: BMI 28.3
--- NOTE | 2018-03-14 23:38 | C.PDOC ---
History Of Present Illness <Uriah Coley - Last Filed: 03/14/18 23:38> <Taurus Brady - Last Filed: 03/15/18 06:11> <Gladis Elizondo - Last Filed: 03/15/18 09:38> 52 year old female with a Hx of ETOH abuse and bipolar disorder brought in by EMS for public intoxicated. On arrival patient is uncooperative, yelling, and crying. Patient has been admitted previously psychiatrically; she states she feels depressed and is asking for psych admission. Denies physical complaints at this time. (Uriah Coley) History Per: Patient History/Exam Limitations: no limitations Onset/Duration Of Symptoms: Hrs Current Symptoms Are (Timing): Still Present Suicide/Self Injury Attempted (Context): None Modifying Factor(s): Alcohol Associated Symptoms: Depression Involuntary Hold By: None Recent travel outside of the [place]: No <Uriah Coley - Last Filed: 03/14/18 23:38> <Taurus Brady - Last Filed: 03/15/18 06:11> <Gladis Elizondo - Last Filed: 03/15/18 09:38> Time Seen by Provider: 03/14/18 23:23 Chief Complaint (Nursing): Substance Abuse Past Medical History Reviewed: Historical Data, Nursing Documentation, Vital Signs - Medical History PMH: Anxiety, Bipolar Disorder, Depression, Hepatitis, Schizophrenia Family History: States: Unknown Family Hx - Social History Hx Tobacco Use: No Hx Alcohol Use: Yes Hx Substance Use: No - Immunization History Hx Tetanus Toxoid Vaccination: No Hx Influenza Vaccination: No Hx Pneumococcal Vaccination: No <Uriah Coley - Last Filed: 03/14/18 23:38> Vital Signs: Last Vital Signs Temp 97.7 F 03/15/18 07:25 Pulse 108 H 03/15/18 07:25 Resp 20 03/15/18 07:25 BP 138/89 03/15/18 07:25 Pulse Ox 96 03/15/18 07:25 - [facility] Procedures DETOXIFICATION SERVICES FOR SUBSTANCE ABUSE TREATMENT (12/30/17) GROUP PSYCHOTHERAPY (01/31/18) INDIV PSYCHOTHERAPY FOR SUBSTANCE ABUSE TREATMENT, SUPPORT (12/30/17) INDIV PSYCHOTHERAPY FOR SUBSTANCE ABUSE, PSYCHOEDUCATION (12/30/17) INDIVIDUAL PSYCHOTHERAPY, BEHAVIORAL (01/31/18) INDIVIDUAL PSYCHOTHERAPY, COGNITIVE-BEHAVIORAL (04/19/17) INDIVIDUAL PSYCHOTHERAPY, SUPPORTIVE (12/30/17) MEDICATION MANAGEMENT (12/30/17) MEDS MGMT FOR SUBSTANCE ABUSE TREATMENT, OTH REPL MED (10/07/16) Review Of Systems Constitutional: Negative for: Fever, Chills Cardiovascular: Negative for: Chest Pain, Palpitations Respiratory: Negative for: Cough, Shortness of Breath Psych: Positive for: Depression. Negative for: Suicidal ideation <Uriah Coley - Last Filed: 03/14/18 23:38> Physical Exam - Physical Exam Appears: Non-toxic, Other (Disheveled, crying, malodorous) Skin: Normal Color, Warm, Dry Head: Atraumatic, Normacephalic Eye(s): bilateral: Normal Inspection Oral Mucosa: Moist Chest: Symmetrical, No Tenderness Cardiovascular: Rhythm Regular Respiratory: Normal Breath Sounds, No Rales, No Rhonchi, No Wheezing Gastrointestinal/Abdominal: Soft, No Tenderness Neurological/Psych: Oriented x3, Normal Speech <Uriah Coley - Last Filed: 03/14/18 23:38> ED Course And Treatment O2 Sat by Pulse Oximetry: 98 (room air) Pulse Ox Interpretation: Normal <Uriah Coley - Last Filed: 03/14/18 23:38> - Laboratory Results Result Diagrams: 03/15/18 00:44 03/15/18 00:44 Pulse Ox Interpretation: Normal <Taurus Brady - Last Filed: 03/15/18 06:11> - Laboratory Results Result Diagrams: 03/15/18 00:44 03/15/18 00:44 <Gladis Elizondo - Last Filed: 03/15/18 09:38> Medical Decision Making <Uriah Coley - Last Filed: 03/14/18 23:38> <Taurus Brady - Last Filed: 03/15/18 06:11> <Gladis Elizondo - Last Filed: 03/15/18 09:38> Medical Decision Making: Plan: * Blood work * Urinalysis * Geodon (Uriah Coley) Disposition <Uriah Coley - Last Filed: 03/14/18 23:38> Counseled Patient/Family Regarding: Studies Performed, Diagnosis - Disposition Disposition Time: 07:00 <Taurus Brady - Last Filed: 03/15/18 06:11> <Gladis Elizondo - Last Filed: 03/15/18 09:38> - Disposition Condition: FAIR Forms: [facility] (Japanese) - Clinical Impression Clinical Impression: Alcohol abuse, Alcohol intoxication, Bipolar disorder - Scribe Statement The provider has reviewed the documentation as recorded by the Scribe <Uriah Coley - Last Filed: 03/14/18 23:38> <Taurus Brady - Last Filed: 03/15/18 06:11> <Gladis Elizondo - Last Filed: 03/15/18 09:38> - Scribe Statement Ruben Nava All medical record entries made by the Scribe were at my direction and personally dictated by me. I have reviewed the chart and agree that the record accurately reflects my personal performance of the history, physical exam, medical decision making, and the department course for this patient. I have also personally directed, reviewed, and agree with the discharge instructions and disposition. (Uriah Coley) Physician Patient Turnover Patient Signed Over To: Gladis Elizondo Handoff Comments: pending sobriety and crisis eval <Taurus Brady - Last Filed: 03/15/18 06:11> Addendum <Uriah Coley - Last Filed: 03/14/18 23:38> <Taurus Brady - Last Filed: 03/15/18 06:11> <Gladis Elizondo - Last Filed: 03/15/18 09:38> Addendum: 03/15/18 07:34 Patient ambulating aotund ED crying, tearful, anxious & unwilling to sit in on stretcher. Will give IM Ativan to calm patient. Pending crisis evaluation. 03/15/18 09:[address] Walsh for psychiatric admission - major depression and alcohol use disorder. Patient is currently calm and cooperative. (Gladis Elizondo)
[2018-03-15 00:47] LABS: BASO % 0.5 % (0.0-2.0); EOS # 0.1 K/uL (0.0-0.7); EOS % 1.6 % (0.0-4.0); LYMPH # 1.3 K/uL (1.0-4.3); LYMPH % 33.3 % (20.0-40.0); MEAN CELL VOLUME 93.7 fL (81.0-99.0); MEAN CORPUSCULAR HEMOGLOBIN 31.5 pg (27.0-31.0); MEAN CORPUSCULAR HGB CONC 33.6 g/dL (33.0-37.0); MEAN PLATELET VOLUME 7.2 fL (7.2-11.7); MONO # 0.5 K/uL (0.0-0.8); MONO % 11.7 % (0.0-10.0); NEUT % 52.9 % (50.0-75.0); NRBC % 0.1 % (0.0-2.0); RBC 3.18 Mil/uL (3.80-5.20); RED CELL DISTRIBUTION WIDTH 17.2 % (11.5-14.5); WHITE BLOOD COUNT 3.8 K/uL (4.8-10.8)
[2018-03-15 01:06] LABS: ACETAMINOPHEN < 10.0 ug/mL (10.0-30.0); SALICYLATE < 1.0 mg/dL 1
[2018-03-15 01:07] LABS: ALB/GLOB RATIO 1.2 (1.0-2.1); ALBUMIN 3.7 g/dL (3.5-5.0); ALT/SGPT 25 U/L (9-52); AST/SGOT 24 U/L (14-36); BLOOD UREA NITROGEN 5 mg/dL (7-17); CALCIUM 8.5 mg/dl (8.6-10.4); GFR AFRICAN-AMERICAN > 60; GFR NON-AFRICAN AMERICAN > 60
[2018-03-15 04:30] LABS: HCG,QUALITATIVE URINE NEGATIVE (NEGATIVE)
[2018-03-15 04:34] LABS: SQUAMOUS EPITHIAL 5 /hpf (0-5); URINE BACTERIA RARE (<OCC); URINE BILIRUBIN NEGATIVE (NEGATIVE); URINE BLOOD NEGATIVE (NEGATIVE); URINE CLARITY Clear (Clear); URINE COLOR Yellow (YELLOW); URINE GLUCOSE (UA) NORMAL (Normal); URINE LEUKOCYTE ESTERASE NEG Leu/uL (Negative); URINE PROTEIN NEGATIVE (NEGATIVE); URINE UROBILINOGEN NORMAL mg/dL (0.2-1.0)
[2018-03-15 04:46] LABS: BARBITURATES, UR NEGATIVE (NEGATIVE); BENZODIAZEPINES, UR NEGATIVE (NEGATIVE); OPIATES, UR NEGATIVE (NEGATIVE); PHENCYCLIDINE, UR NEGATIVE (NEGATIVE)
[2018-03-15 10:03] VITALS: O2SAT 98
--- NOTE | 2018-03-15 11:04 | PCM.BM ---
<Anel Jiang - Last Filed: 03/15/18 11:03> Treatment Plan Problems - Problems identified on initial assessmt Depression Date Initiated: 03/15/18 Time Initiated: 11:03 Assessment reference: NA Status: Active Suicidal Ideation Date Initiated: 03/15/18 Time Initiated: 11:03 Assessment reference: NA Status: Monitor Treatment assets and liabiliti Patient Assests: cooperative, ADL independent, negotiates basic needs, good past tx response Patient Liabilities: relationship conflicts, substance abuse - Milieu Protocol Maintain good personal hygiene: daily Encourage regular showers, every shift Remind patient to perform daily oral care, every shift Assist patient to perform ADL's Maintain personal safety: every shift Educate patient to report safety concerns to staff, every shift Monitor environment for contraband/sharps Medication safety: Monitor for expected outcome, potential side effects: every shift, Assess barriers to learning: every shift, Assess readiness for medication education: every shift <Fredy Munoz - Last Filed: 03/17/18 10:40> - Diagnosis (1) Depression, major, severe recurrence Status: Acute Interventions: 03/17/18 10:40 * Assess/adjust medications daily and /or as needed * See patient on an individual basis 7x/week to assess symptoms of depression * Monitor for side effects & effectiveness of medications * (2) Alcohol use disorder, severe, dependence Status: Acute Interventions: 03/17/18 10:40 * Assess 7x/week regarding severity of withdrawal * Educate regarding risks, benefits, side effects and alternatives of medications * Use Motivational Interviewing for abstinence * Use CBT for relapse prevention * Medication management for withdrawal symptoms * Encourage medication assisted treatment * <Chari Warner - Last Filed: 03/17/18 12:07> Family Contact Family involvement: Patient does not wish Family/SO involvement Family contact: Patient declines to allow family contact at present - Goals for Treatment Patient goals for treatment: "I need medication and I do not want type of treatment I want for aftercare." Discharge/Continuing Care - Education Needs Education Needs: Patient Medication, Patient Coping Skills, Patient Anger Management skills, Patient Placement options, Patient Community resources - Discharge Discharge Criteria: Free of Suicidal thoughts, Normal sleep pattern, Ability to care for self, No longer exhibiting s/s of withdrawal, Reduction of target symptoms Discharge to:: Home - Treatment Team Participation Discussed with Family/SO: No Was Patient/Family/SO present at Treatment Team Meeting: Yes
[2018-03-15] MEDS: Multiple Vitamins Tab PO SCH (12:43)
--- NOTE | 2018-03-15 13:21 | PCM.PSYCH ---
Initial Psychiatric Evaluation - Initial Psychiatric Evaluation Type of Admission: Voluntary Legal Status: Capacity Chief Complaint (in patient's own words): "Tired" History of Present Illness and Precipitating Events: The pt is seen, chart reviewed and case discussed. Due to her intoxication and geodon and ativan given in ER for her agitation while intoxicated, she did not cooperate well in this interview. Some info is gathered from the med records and aligner typewriter knows this pt very well from previous admissions. 52 y.o F currently in a monogamous relationship, homeless, and has 3 adult children, and on disability for bipolar d/o presented to the ED intoxicated, agitated, suicidal. She was living with her boyfriend but recently they both got evicted and are now homeless and both abusing alcohol. She has been drinking daily for the last 5 years but started 12-13 years ago. She drinks about several 24 ounce beers and some liquor shots daily. She denies all drug use currently, but abused cocaine in the past. She denies cigarette use. She denies ever going to rehab. She admits to having Bipolar disorder but she only describes symptoms of depression. She admits to suicide attempts in the past with visible scarring on her wrist from cutting. She is currently not suicidal but drowsy and unreliable. She denies auditory and visual hallucinations and paranoia. She and her BF are enablers and drink together Detox Hx: 3-4 Rehab Hx: never Medical Hx: none Medications: none Psych Hx: Depression, Alcohol use disorder Fam Hx: son bipolar, son autism, sister substance use d/o Current Medications: Active Medications Generic Name Dose Route Start Last Admin Trade Name Freq PRN Reason Stop Dose Admin Chlordiazepoxide 25 mg 03/15/18 12:00 03/15/18 12:43 Librium PO 03/19/18 11:59 Not Given Q6 RAGHU Taper Clonidine HCl 0.1 mg 03/15/18 11:04 Catapres PO Q4H PRN Symptoms of alcohol withdrawl Fluoxetine HCl 20 mg 03/16/18 10:00 Prozac PO DAILY RAGHU Folic Acid 1 mg 03/15/18 11:15 03/15/18 12:43 Folic Acid PO Not Given DAILY RAGHU Haloperidol 5 mg 03/15/18 11:02 Haldol PO Q6H PRN Agitation Hydroxyzine HCl 50 mg 03/15/18 11:02 Atarax PO Q6H PRN Anxiety Ibuprofen 600 mg 03/15/18 11:02 Motrin Tab PO Q6H PRN Pain, moderate (4-7) Multivitamins 1 tab 03/15/18 11:15 03/15/18 12:43 Hexavitamin PO Not Given DAILY RAGHU Quetiapine Fumarate 100 mg 03/15/18 22:00 Seroquel PO HS RAGHU Thiamine HCl 100 mg 03/15/18 11:15 03/15/18 12:43 Vitamin B1 Tab PO Not Given DAILY RAGHU Past Psychiatric History - Past Psychiatric History Previous Treatment History: Inpatient Pertinent Medical Hx (Current Medical&Sleep Prob, Allergies): Allergies Allergy/AdvReac Type Severity Reaction Status Date / Time No Known Allergies Allergy Verified 03/14/18 23:01 No Known Home Med 02/03/18 Review of Systems - Psychiatric Psychiatric: Abnormal Sleep Pattern, Anxiety, Depression, Difficulty Concentrating, Irritability. absent: Hallucinations, Homicidal Ideation, Suicidal Ideation Mental Status Examination - Personal Presentation Personal Presentation: Looks older than stated age - Affect Affect: Constricted - Motor Activity Motor Activity: Calm - Reliability in Providing Information Reliability in Providing Information: Poor, due to cognitve impairment - Speech Speech: Disorganized - Mood Mood: Depressed, Anxious - Formal Thought Process Formal Thought Process: No Impairment - Cognitive Functions Orientation: Person, Place, Situation Sensorium: Drowsy Attention/Concentration: Easily distracted Abstract Thinking: Inez Estimate of Intelligence: Below average Judgement: Intact, as evidence by: Insight regarding need for hospitalization Memory: Recent impaired, as evidence by: Inability to recall events of the day, Remote impaired as evidenced by: Inability to recall sig life events - Risk Risk: Withdrawal, Diminished functioning - Strength & Assets Inventory Strength & Assets Inventory: Cooperative - Limitations Limitations: Other DSM 5 DX - DSM 5 DSM 5 Diagnosis: Major Depression d/o - recurrent, severe, without psychosis Alcohol Withdrawal Alcohol Use d/o - severe Personality disorder - unspecified - Recommended/Plan of Treatment Treatment Recommendations and Plan of Treatment: Major Depression Prozac CBT Groups Support Alcohol detox - Librium taper Gabapentin for augmentation As needed medications All risks, benefits and alternatives of the meds discussed, and the pt agreed and understood. Attend groups and activities Supportive therapy and psychoeducation [place] for abstinence CBT for relapse prevention Encourage MAT Refer to rehab or IOP, and self-help groups 30 min Projected ELOS: 6-7 days
[2018-03-16] MEDS: Multiple Vitamins Tab PO SCH (10:31)
--- NOTE | 2018-03-17 10:01 | PCM.PYCHPN ---
Psychiatric Progress Note - Psychiatric Progress Note Patient seen today, length of contact: 15 min Patient Chief Complaint: I am feeling terrible.' Problems Identified/Issues Discussed: Patient seen and evaluated, chart reviewed and discussed with the nurse. Patient reports of hearing voices and appears paranoid and delusional. Patient reports withdrawal symptoms including nausea, headaches, cramps and sweating. She reports depressed mood and feelings of hopelessness and helplessness. Patient remained isolated, confined and withdrawn. Patient is compliant with medications and denies any side effects. Symptoms are improving but need more time to stabilize. Support and psychoeducation given. Medication Change: Yes Medical Record Reviewed: Yes Mental Status Examination - Cognitive Function Orientation: Person, Place, Situation Memory: Intact Attention: WNL Concentration: Poor Association: Loose Fund of Knowledge: Poor - Mood Mood: Depressed, Anxious - Affect Affect: Constricted - Speech Speech: Soft - Formal Thought Process Formal Thought Process: Hallucinations, Delusions, Paranoia - Suicidal Ideation Suicidal Ideation: No - Homicidal Ideation Homicidal Ideation: No Goal/Treatment Plan - Goal/Treatment Plan Need for Continued Stay: Severe depression anxiety, Severe functional impairment Progress Toward Problem(s) and Goals/Treatment Plan: Major Depression d/o - recurrent, severe, with psychosis Alcohol Withdrawal Alcohol Use d/o - severe Personality disorder - unspecified Major Depression Prozac CBT Groups Support Alcohol detox - Librium taper Gabapentin for augmentation As needed medications All risks, benefits and alternatives of the meds discussed, and the pt agreed and understood. Attend groups and activities Supportive therapy and psychoeducation [place] for abstinence CBT for relapse prevention Encourage MAT Refer to rehab or IOP, and self-help groups - Smoking Cessation Smoking Cessation Initiated: No
[2018-03-17] MEDS: Multiple Vitamins Tab PO SCH (10:06)
[2018-03-18] MEDS: Multiple Vitamins Tab PO SCH (09:38)
--- NOTE | 2018-03-18 10:36 | PCM.PYCHPN ---
Psychiatric Progress Note - Psychiatric Progress Note Patient seen today, length of contact: 15 min Patient Chief Complaint: CC: "I'm not feeling so good" Problems Identified/Issues Discussed: The pt is seen, chart reviewed, case discussed with staff. The pt is compliant with medications and reports no side-effects. Symptoms are improving but needs more time to stabilize. After care discussed, support and psychoeducation given. Patient reports that she is still depressed and anxious. Patient states she slept well. Patient complained of visual hallucinations involving her and son. Patient still appears depressed and anxious. Mental Status Examination - Cognitive Function Orientation: Person, Place, Situation, Time Memory: Intact - Mood Mood: Depressed, Anxious - Affect Affect: Constricted - Formal Thought Process Formal Thought Process: No Impairment, Hallucinations - Homicidal Ideation Homicidal Ideation: No Goal/Treatment Plan - Goal/Treatment Plan Need for Continued Stay: Severe depression anxiety, Discharge may exacerbated symptoms, Severe functional impairment Progress Toward Problem(s) and Goals/Treatment Plan: Major Depressive Disorder -Psychotherapy -Supportive therapy, group therapy, individual therapy -Prozac 20 mg PO daily -Atarax 50 mg PO Q6 prn -Haldol 5 mg PO q6h PRN -Seroquel 100 mg by mouth daily at bedtime -Ziprasidone 20 mg PO BID Alcohol Use Disorder severe Alcohol Withdrawal -Psychoeducation -Supportive therapy, group therapy, individual therapy -[place] for abstinence -Librium 25 mg PO BID -Clonidine 0.1 mg PO q4h PRN -Neurontin 300 mg PO TID -Thiamine 100 mg PO daily -Folic acid 1 mg PO daily -Multivitamin daily
[2018-03-19] MEDS: Multiple Vitamins Tab PO SCH (09:56)
[2018-03-20] MEDS: Multiple Vitamins Tab PO SCH (09:10)
--- NOTE | 2018-03-20 10:33 | PCM.PYCHPN ---
Psychiatric Progress Note - Psychiatric Progress Note Patient seen today, length of contact: 15 min Patient Chief Complaint: I am feeling little better.' Problems Identified/Issues Discussed: The pt is seen, chart reviewed, case discussed with staff. Patient reports improvement in her mood and voices Shew also reports improvement in her visual hallucinations The pt is compliant with medications and reports no side-effects. Symptoms are improving but needs more time to stabilize. After care discussed, support and psychoeducation given. Medication Change: Yes Medical Record Reviewed: Yes Mental Status Examination - Cognitive Function Orientation: Person, Place, Situation Memory: Intact Attention: WNL Concentration: WNL Association: WNL Fund of Knowledge: Poor - Mood Mood: Depressed, Anxious - Affect Affect: Constricted - Speech Speech: Soft - Formal Thought Process Formal Thought Process: Loosening of associations - Suicidal Ideation Suicidal Ideation: No - Homicidal Ideation Homicidal Ideation: No Goal/Treatment Plan - Goal/Treatment Plan Need for Continued Stay: Severe depression anxiety, Severe functional impairment Progress Toward Problem(s) and Goals/Treatment Plan: Major Depression d/o - recurrent, severe, with psychosis Alcohol Withdrawal Alcohol Use d/o - severe Personality disorder - unspecified Major Depression Increase Prozac to 40 mg po daily Seroquel 200 mg PO QHS Seroquel 50 mg PO Q Daily Geodon 20 mg PO BID CBT Groups Support Alcohol detox - Librium taper Gabapentin for augmentation As needed medications All risks, benefits and alternatives of the meds discussed, and the pt agreed and understood. Attend groups and activities Supportive therapy and psychoeducation [place] for abstinence CBT for relapse prevention Encourage MAT Refer to rehab or IOP, and self-help groups - Smoking Cessation Smoking Cessation Initiated: No
--- NOTE | 2018-03-20 10:33 | PCM.PYCHPN ---
Psychiatric Progress Note - Psychiatric Progress Note Patient seen today, length of contact: 15 min Patient Chief Complaint: I am feeling terrible.' Problems Identified/Issues Discussed: The pt is seen, chart reviewed, case discussed with staff. The pt is compliant with medications and reports no side-effects. Symptoms are improving but needs more time to stabilize. After care discussed, support and psychoeducation given. Patient reports that she is still depressed and anxious. Patient states she slept well. Patient complained of visual hallucinations involving her and son. Patient still appears depressed and anxious. Medication Change: Yes Medical Record Reviewed: Yes Mental Status Examination - Cognitive Function Orientation: Person, Place, Situation Memory: Intact Attention: WNL Concentration: Poor Association: Loose Fund of Knowledge: Poor - Mood Mood: Depressed, Anxious - Affect Affect: Constricted - Speech Speech: Soft - Formal Thought Process Formal Thought Process: Hallucinations, Delusions, Paranoia - Suicidal Ideation Suicidal Ideation: No - Homicidal Ideation Homicidal Ideation: No Goal/Treatment Plan - Goal/Treatment Plan Need for Continued Stay: Severe depression anxiety, Severe functional impairment Progress Toward Problem(s) and Goals/Treatment Plan: Major Depression d/o - recurrent, severe, with psychosis Alcohol Withdrawal Alcohol Use d/o - severe Personality disorder - unspecified Major Depression Prozac CBT Groups Support Alcohol detox - Librium taper Gabapentin for augmentation As needed medications All risks, benefits and alternatives of the meds discussed, and the pt agreed and understood. Attend groups and activities Supportive therapy and psychoeducation [place] for abstinence CBT for relapse prevention Encourage MAT Refer to rehab or IOP, and self-help groups
[2018-03-21] MEDS: Multiple Vitamins Tab PO SCH (09:05)
--- NOTE | 2018-03-21 10:10 | PCM.PYCHPN ---
Psychiatric Progress Note - Psychiatric Progress Note Patient seen today, length of contact: 15 min Patient Chief Complaint: I am hearing voices and seeing ghosts.' Problems Identified/Issues Discussed: The pt is seen, chart reviewed, case discussed with staff. Today pt became increasingly paranoid and delusional and reports that she is hearing voices and seeing ghosts.' She reports poor sleep and scared. The pt is compliant with medications and reports no side-effects. Symptoms are improving but needs more time to stabilize. After care discussed, support and psychoeducation given. Medication Change: Yes (d/c geodon , Start haldol) Medical Record Reviewed: Yes Mental Status Examination - Cognitive Function Orientation: Person, Place, Situation Memory: Intact Attention: WNL Concentration: WNL Association: WNL Fund of Knowledge: Poor - Mood Mood: Depressed, Anxious - Affect Affect: Constricted - Speech Speech: Soft - Formal Thought Process Formal Thought Process: Loosening of associations - Suicidal Ideation Suicidal Ideation: No - Homicidal Ideation Homicidal Ideation: No Goal/Treatment Plan - Goal/Treatment Plan Need for Continued Stay: Severe depression anxiety, Severe functional impairment Progress Toward Problem(s) and Goals/Treatment Plan: Major Depression d/o - recurrent, severe, with psychosis Alcohol Withdrawal Alcohol Use d/o - severe Personality disorder - unspecified Major Depression CBT Groups Support Increase Prozac to 40 mg po daily Seroquel 200 mg PO QHS Seroquel 50 mg PO Q Daily d/c Geodon 20 mg PO BID Start Haldol 5 mg PO BID Alcohol detox - Librium taper Gabapentin for augmentation As needed medications All risks, benefits and alternatives of the meds discussed, and the pt agreed and understood. Attend groups and activities Supportive therapy and psychoeducation [place] for abstinence CBT for relapse prevention Encourage MAT Refer to rehab or IOP, and self-help groups
[2018-03-22] MEDS: Multiple Vitamins Tab PO SCH (09:10)
--- NOTE | 2018-03-22 16:23 | PCM.PYCHPN ---
Psychiatric Progress Note - Psychiatric Progress Note Patient seen today, length of contact: 15 min Patient Chief Complaint: "I'm not ready to be discharge" Problems Identified/Issues Discussed: Pt was seen and evaluated. Chart reviewed. Pt reported that she is not ready to be discharge. She reported she still have depressive symptoms. SHE denied SI, HI , intent or plan. She denied perceptual disturbances. She needs more time for stabilizations. DSM 5 Symptoms Update: MDD Medication Change: Yes Medical Record Reviewed: Yes Mental Status Examination - Cognitive Function Orientation: Person, Place, Situation Memory: Intact Attention: WNL Concentration: Poor Association: WNL Fund of Knowledge: Poor Decription of patient's judgement and insights: fair/fair Addtional comments: Pt is calm and cooperative - Mood Mood: Depressed, Anxious - Affect Affect: Constricted - Speech Speech: Appropriate, Soft - Formal Thought Process Formal Thought Process: Hallucinations, Delusions, Paranoia - Suicidal Ideation Suicidal Ideation: No Plan: denied - Homicidal Ideation Homicidal Ideation: No Plan: denied Goal/Treatment Plan - Goal/Treatment Plan Need for Continued Stay: Severe depression anxiety, Severe functional impairment Progress Toward Problem(s) and Goals/Treatment Plan: Continue current treatment as per primary team. Psychoeducation provided regarding diagnosis, treatment, meds benefits, side effects, risk and alternative choices. Pt verbalized understanding and agree with the treatment plan. Continue current management and medications. Patient educated about risks, benefits, side effects & alternatives of meds. Pt verbalized understanding & agreed with the above. Therapy in milieu.
[2018-03-23 09:04] VITALS: RESP 20
[2018-03-23] MEDS: Multiple Vitamins Tab PO SCH (09:33)
--- NOTE | 2018-03-23 17:10 | PCM.PYCHPN ---
Psychiatric Progress Note - Psychiatric Progress Note Patient seen today, length of contact: 15 min Patient Chief Complaint: "I'm feeling better" Problems Identified/Issues Discussed: Pt was seen and evaluated. Chart reviewed. Pt reported that she is still feeling depressed. She stated that hs is not ready to be discharge. SHE denied SI, HI, intent or plan. She denied perceptual disturbances. She needs more time for stabilizations. Medication Change: Yes Medical Record Reviewed: Yes Mental Status Examination - Cognitive Function Orientation: Person, Place, Situation Memory: Intact Attention: WNL Concentration: Poor Association: WNL Fund of Knowledge: Poor Decription of patient's judgement and insights: fair/fair - Mood Mood: Depressed, Anxious - Affect Affect: Constricted - Speech Speech: Appropriate, Soft - Formal Thought Process Formal Thought Process: Hallucinations, Delusions, Paranoia Psychotic Thoughts and Behaviors: denied - Suicidal Ideation Suicidal Ideation: No Plan: denied - Homicidal Ideation Homicidal Ideation: No Plan: denied Goal/Treatment Plan - Goal/Treatment Plan Need for Continued Stay: Severe depression anxiety, Severe functional impairment Progress Toward Problem(s) and Goals/Treatment Plan: Continue current treatment as per primary team. Psychoeducation provided regarding diagnosis, treatment, meds benefits, side effects, risk and alternative choices. Pt verbalized understanding and agree with the treatment plan. Continue current management and medications. Patient educated about risks, benefits, side effects & alternatives of meds. Pt verbalized understanding & agreed with the above. Therapy in milieu. Estimated Date of D/C: 03/25/18
[2018-03-24 06:34] VITALS: BP 105/65; PULSE 94; TEMP 97.7
[2018-03-24] MEDS: Multiple Vitamins Tab PO SCH (10:14)
--- NOTE | 2018-03-24 10:39 | PCM.PYCHDC ---
Mental Status Examination - Mental Status Examination Orientation: Person, Place, Situation, Time Memory: Intact Mood: Neutral Affect: Constricted Speech: Soft Attention: WNL Concentration: WNL Association: WNL Fund of Knowledge: WNL Formal Thought Process: No Impairment Description of patient's judgement and insight: good, fair Psychotic Thoughts and Behaviors: denies any AVH Suicidal Ideation: No Current Homicidal Ideation?: No Discharge Summary - Discharge Note Reason for Hospitalization: The pt is seen, chart reviewed and case discussed. Due to her intoxication and geodon and ativan given in ER for her agitation while intoxicated, she did not cooperate well in this interview. Some info is gathered from the med records and verse writer knows this pt very well from previous admissions. 52 y.o F currently in a monogamous relationship, homeless, and has 3 adult children, and on disability for bipolar d/o presented to the ED intoxicated, agitated, suicidal. She was living with her boyfriend but recently they both got evicted and are now homeless and both abusing alcohol. She has been drinking daily for the last 5 years but started 12-13 years ago. She drinks about several 24 ounce beers and some liquor shots daily. She denies all drug use currently, but abused cocaine in the past. She denies cigarette use. She denies ever going to rehab. She admits to having Bipolar disorder but she only describes symptoms of depression. She admits to suicide attempts in the past with visible scarring on her wrist from cutting. She is currently not suicidal but drowsy and unreliable. She denies auditory and visual hallucinations and paranoia. She and her BF are enablers and drink together Consultations:: List each consultation separately and include: 1. Reason for request. 2. Findings. 3. Follow-up Summary of Hospital Course include:: 1. Description of specific treatment plan utilized for patients during their course of treatmen. 2. Summarize the time- course for resolution of acute symptoms and/or regressed behaviors. 3. Describe issues identified and worked on during hospitalization. 4. Describe medication utilized. 5. Describe medical problems identified and treated. 6. Reassessment of suicide risk - Diagnosis (1) Depression, major, severe recurrence Current Visit: No Status: Acute (2) Alcohol use disorder, severe, dependence Current Visit: No Status: Acute - Final Diagnosis (DSM 5) Condition upon Discharge: FAIR DSM 5: Major Depression d/o - recurrent, severe, without psychosis Alcohol Withdrawal Alcohol Use d/o - severe Personality disorder - unspecified Disposition: HOME/ ROUTINE Follow-up Treatment Plan: Major Depression d/o - recurrent, severe, with psychosis Alcohol Withdrawal Alcohol Use d/o - severe Personality disorder - unspecified Major Depression Prozac CBT Groups Support Alcohol detox - Librium taper Gabapentin for augmentation As needed medications All risks, benefits and alternatives of the meds discussed, and the pt agreed and understood. Attend groups and activities Supportive therapy and psychoeducation MT for abstinence CBT for relapse prevention Encourage MAT Refer to rehab or IOP, and self-help groups Prescriptions/Medication Reconciliation: Benztropine [Cogentin] 1 mg PO BID #60 tab FLUoxetine [Prozac] 40 mg PO DAILY #60 cap Gabapentin [Neurontin] 300 mg PO BID #60 cap Haloperidol [Haldol] 5 mg PO BID #60 tab QUEtiapine [Seroquel] 100 mg PO HS #60 tab
== END 2018-03-24 12:51 | disposition home or self-care (01) | DRG 885 ==
LOC: C.ER 22:52 → C.9E 03-15 09:36 → C.5E 03-15 10:24
PROVIDERS: ADMIT Psychiatry & Neurology Psychiatry; ATTEND Psychiatry & Neurology Psychiatry
PROC: HZ2ZZZZ Detoxification Services for Substance Abuse Treatment (ICD-10-PCS; principal; 2018-03-15)
PROC: GZ3ZZZZ Medication Management (ICD-10-PCS; 2018-03-15)
PROC: GZHZZZZ Group Psychotherapy (ICD-10-PCS; 2018-03-15)
PROC: GZ56ZZZ Individual Psychotherapy, Supportive (ICD-10-PCS; 2018-03-15)
PROC: HZ46ZZZ Group Counseling for Substance Abuse Treatment, Psychoeducation (ICD-10-PCS; 2018-03-15)
PROC: HZ59ZZZ Individual Psychotherapy for Substance Abuse Treatment, Supportive (ICD-10-PCS; 2018-03-15)
DX: F33.2 Major depressive disorder, recurrent severe without psychotic features (principal); F10.230 Alcohol dependence with withdrawal, uncomplicated; F10.220 Alcohol dependence with intoxication, uncomplicated; Y90.6 Blood alcohol level of 120-199 mg/100 ml; F60.9 Personality disorder, unspecified; F31.9 Bipolar disorder, unspecified; Z91.5 Personal history of self-harm; Z59.0 Homelessness

== ENCOUNTER 2018-04-23 15:03 | Inpatient (IN) | payer MEDICARE, MEDICAID ==
[2018-04-23 15:03] VITALS: BMI 28.3
[2018-04-23] MEDS ORDERED: Sodium Chloride 0.9% 1,000 ML IV ONE (16:34)
--- NOTE | 2018-04-23 16:48 | C.PDOC ---
History Of Present Illness 52 yo female comes to ER for evaluation as she feels increasingly depressed. Patient states she does not drink alcohol everyday but did drink today several hours ago. She denies any specific suicidal plan but does report suicidal ideations. Patient denies fever, chills, chest pain, shortness of breath, abdominal pain or any other physical complaints. Time Seen by Provider: 04/23/18 16:28 Chief Complaint (Nursing): Substance Abuse History Per: Patient History/Exam Limitations: no limitations Onset/Duration Of Symptoms: Days Current Symptoms Are (Timing): Still Present Modifying Factor(s): Alcohol Associated Symptoms: Suicidal Thoughts. denies: Suicidal Plan Past Medical History Reviewed: Historical Data, Nursing Documentation, Vital Signs Vital Signs: Last Vital Signs Temp 98.9 F 04/23/18 15:46 Pulse 89 04/23/18 15:46 Resp 20 04/23/18 15:46 BP 92/52 L 04/23/18 15:46 Pulse Ox 97 04/23/18 18:13 - Medical History PMH: Anxiety, Bipolar Disorder, Depression, Hepatitis, Schizophrenia Surgical History: No Surg Hx - [facility] DETOXIFICATION SERVICES FOR SUBSTANCE ABUSE TREATMENT (03/15/18) GROUP DOCTOR OSTEOPATHIC FOR SUBSTANCE ABUSE TREATMENT, PSYCHOEDUCATION (03/15/18) GROUP PSYCHOTHERAPY (03/15/18) INDIV PSYCHOTHERAPY FOR SUBSTANCE ABUSE TREATMENT, SUPPORT (03/15/18) INDIV PSYCHOTHERAPY FOR SUBSTANCE ABUSE, PSYCHOEDUCATION (12/30/17) INDIVIDUAL PSYCHOTHERAPY, BEHAVIORAL (01/31/18) INDIVIDUAL PSYCHOTHERAPY, COGNITIVE-BEHAVIORAL (04/19/17) INDIVIDUAL PSYCHOTHERAPY, SUPPORTIVE (03/15/18) MEDICATION MANAGEMENT (03/15/18) MEDS MGMT FOR SUBSTANCE ABUSE TREATMENT, OTH REPL MED (10/07/16) Family History: States: No Known Family Hx - Social History Hx Tobacco Use: No Hx Alcohol Use: Yes Hx Substance Use: Yes - Immunization History Hx Tetanus Toxoid Vaccination: No Hx Influenza Vaccination: No Hx Pneumococcal Vaccination: No Review Of Systems Constitutional: Negative for: Fever, Chills Cardiovascular: Negative for: Chest Pain, Palpitations Respiratory: Negative for: Shortness of Breath Gastrointestinal: Negative for: Nausea, Vomiting, Abdominal Pain Psych: Positive for: Depression, Suicidal ideation Physical Exam - Physical Exam Appears: Well, Non-toxic, Other (unkempt, no distress) Skin: Normal Color, Warm, Dry Head: Normacephalic Eye(s): bilateral: Normal Inspection Oral Mucosa: Moist Neck: Supple Chest: Symmetrical Cardiovascular: Rhythm Regular Respiratory: No Rales, No Rhonchi, Wheezing (mild expitory wheeze) Gastrointestinal/Abdominal: Normal Exam, Bowel Sounds, Soft, No Tenderness Back: Normal Inspection Extremity: Normal ROM, No Pedal Edema, No Deformity Neurological/Psych: Oriented x3 (flat affect) ED Course And Treatment - Laboratory Results Result Diagrams: 04/23/18 16:52 04/23/18 16:52 O2 Sat by Pulse Oximetry: 97 (RA) Pulse Ox Interpretation: Normal Progress Note: Blood work, UA, UDS ordered and reviewed. Patient has mild wheezing, 1 neb treatment given. Patient given 1 liter iV NS bolus. Prior visits reviewed - patient's BP is typically boderline low. 6:55pm- Patient medically cleared. Penidng crisis. Disposition - Disposition Disposition Time: 19:00 Condition: STABLE Forms: [facility] (Turkmen) - Clinical Impression Clinical Impression: Depression - Scribe Statement The provider has reviewed the documentation as recorded by the Scribe (Aby Albright) Provider Attestation: All medical record entries made by the Scribe were at my direction and personally dictated by me. I have reviewed the chart and agree that the record accurately reflects my personal performance of the history, physical exam, medical decision making, and the department course for this patient. I have also personally directed, reviewed, and agree with the discharge instructions and disposition. Physician Patient Turnover Patient Signed Over To: Tuarus Brady Handoff Comments: pending crisis
[2018-04-23] MEDS ORDERED: Albuterol 0.083% Inhal Sol (2.5 mg/3 mL) UD IH STA (16:54)
[2018-04-23 16:59] LABS: BASO % 0.4 % (0.0-2.0); EOS # 0.1 K/uL (0.0-0.7); EOS % 1.7 % (0.0-4.0); HEMOGLOBIN 9.9 g/dL (11.0-16.0); LYMPH # 1.6 K/uL (1.0-4.3); MEAN CELL VOLUME 91.8 fL (81.0-99.0); MEAN CORPUSCULAR HEMOGLOBIN 30.5 pg (27.0-31.0); MEAN CORPUSCULAR HGB CONC 33.2 g/dL (33.0-37.0); MEAN PLATELET VOLUME 7.7 fL (7.2-11.7); MONO # 0.4 K/uL (0.0-0.8); MONO % 8.7 % (0.0-10.0); NEUT # 2.6 K/uL (1.8-7.0); NEUT % 55.2 % (50.0-75.0); RBC 3.27 Mil/uL (3.80-5.20); RED CELL DISTRIBUTION WIDTH 18.4 % (11.5-14.5); WHITE BLOOD COUNT 4.8 K/uL (4.8-10.8)
[2018-04-23 17:14] LABS: ALB/GLOB RATIO 1.3 (1.0-2.1); ALBUMIN 4.3 g/dL (3.5-5.0); ALT/SGPT 33 U/L (9-52); AST/SGOT 35 U/L (14-36); BLOOD UREA NITROGEN 14 mg/dL (7-17); CALCIUM 8.7 mg/dl (8.6-10.4); GFR AFRICAN-AMERICAN > 60; GFR NON-AFRICAN AMERICAN > 60
[2018-04-23] MEDS ORDERED: Albuterol 0.083% Inhal Sol (2.5 mg/3 mL) UD ONE (17:52)
[2018-04-23 18:35] LABS: BARBITURATES, UR NEGATIVE (NEGATIVE); OPIATES, UR NEGATIVE (NEGATIVE); PHENCYCLIDINE, UR NEGATIVE (NEGATIVE)
[2018-04-23 18:40] LABS: BENZODIAZEPINES, UR POSITIVE (NEGATIVE); SQUAMOUS EPITHIAL 12 /hpf (0-5); URINE BILIRUBIN NEGATIVE (NEGATIVE); URINE BLOOD NEGATIVE (NEGATIVE); URINE CLARITY Hazy (Clear); URINE GLUCOSE (UA) NORMAL (Normal); URINE LEUKOCYTE ESTERASE TRACE Leu/uL (Negative); URINE PROTEIN NEGATIVE (NEGATIVE)
[2018-04-23 18:49] LABS: URINE COLOR YELLOW (YELLOW)
[2018-04-23] MEDS: guaiFENesin 200 mg/10 ml Syrup UD PO PRN (21:54)
--- NOTE | 2018-04-23 22:15 | PCM.BM ---
<Matt Hills - Last Filed: 04/23/18 22:12> Treatment Plan Problems - Problems identified on initial assessmt Depression Date Initiated: 04/23/18 Time Initiated: 20:20 Assessment reference: NA Status: Active Suicidal Ideation Date Initiated: 04/23/18 Time Initiated: 20:20 Assessment reference: NA Status: Active Treatment assets and liabiliti Patient Assests: cooperative, ADL independent, negotiates basic needs, good past tx response Patient Liabilities: poor support system, relationship conflicts, substance abuse (ETOH, Benzo), imparied memory - Milieu Protocol Maintain good personal hygiene: daily Encourage regular showers, daily Remind patient to perform daily oral care, every shift Assist patient to perform ADL's Conduct patient checks and document Observation sheet: Q15 minutes Maintain personal safety: every shift Educate patient to report safety concerns to staff, every shift Monitor environment for contraband/sharps Medication safety: Monitor for expected outcome, potential side effects: every shift, Assess barriers to learning: every shift, Assess readiness for medication education: every shift <Fredy Munoz - Last Filed: 04/25/18 11:25> - Diagnosis (1) Major depressive disorder with psychotic features Status: Acute Interventions: 04/25/18 11:25 * Assess/adjust medications daily and /or as needed * See patient on an individual basis 7x/week to assess symptoms of depression * Monitor for side effects & effectiveness of medications * (2) Alcohol abuse Status: Acute Interventions: 04/25/18 11:26 * Assess 7x/week regarding severity of withdrawal * Educate regarding risks, benefits, side effects and alternatives of medications * Use Motivational Interviewing for abstinence * Use CBT for relapse prevention * Medication management for withdrawal symptoms * Encourage medication assisted treatment * <Chari Warner - Last Filed: 04/25/18 15:00> Family Contact Family involvement: Patient does not wish Family/SO involvement Family contact: Patient declines to allow family contact at present - Goals for Treatment Patient goals for treatment: "I do not where I want to go after I leave." Discharge/Continuing Care - Education Needs Education Needs: Patient Medication, Patient Diagnosis/Disease Process, Patient Coping Skills - Discharge Discharge Criteria: Free of Suicidal thoughts, Ability to care for self, No longer exhibiting s/s of withdrawal, Reduction of target symptoms Discharge to:: Other - Treatment Team Participation Discussed with Family/SO: No Was Patient/Family/SO present at Treatment Team Meeting: Yes
[2018-04-24] MEDS: Multiple Vitamins Tab PO SCH (10:21)
--- NOTE | 2018-04-24 10:57 | PCM.PSYCH ---
Initial Psychiatric Evaluation - Initial Psychiatric Evaluation Type of Admission: Voluntary Legal Status: Capacity Chief Complaint (in patient's own words): I relapsed on drinking.' History of Present Illness and Precipitating Events: Pt is a 52 year old CF who presented at [facility] originally for substance abuse. Pt stated, I am tired of being at the assisted. Pt reported of living at the assisted for 3-4months and she is suicidal because of being at the assisted and she is drinking every day. When asked if pt has a plan, pt yelled, I want to cut my face off. She has h/o multiple in patient psychiatric hospitalizations but she has been non compliant with the treatment and follow ups. Pt want to be admitted in 5E. Pt began to calm down and finished the assessment. Pt stated she has a hx of Suicidal ideation in the past. Pt also stated, I see ghosts and hear my familys voices because my bf gives me these pills and I drink and I hear and see ghost. Pt stated she is dx with bipolar but does not take psych meds are seeks. Patient reports withdrawal symptoms including nausea, headaches , cramps and sweating. PMH Nne reported Current Medications: Active Medications Generic Name Dose Route Start Last Admin Trade Name Freq PRN Reason Stop Dose Admin Benztropine Mesylate 1 mg 04/23/18 21:08 04/23/18 21:15 Cogentin PO 1 mg Q6H PRN Administration EPS symptoms Chlordiazepoxide 25 mg 04/24/18 10:54 Librium PO Q4H PRN Alcohol Withdrawal Chlordiazepoxide 25 mg 04/24/18 10:55 Librium PO 04/29/18 10:53 Q6 RAGHU Taper Folic Acid 1 mg 04/24/18 10:00 04/24/18 10:21 Folic Acid PO 1 mg DAILY RAGHU Administration Gabapentin 300 mg 04/24/18 11:00 Neurontin PO BID RAGHU Guaifenesin 200 mg 04/23/18 21:35 04/23/18 21:54 Robitussin PO 200 mg Q8H PRN Administration Cough and congestion Haloperidol 5 mg 04/23/18 21:07 04/23/18 21:15 Haldol PO 5 mg Q6H PRN Administration Agitation Hydroxyzine HCl 25 mg 04/23/18 20:47 04/24/18 10:23 Atarax PO 25 mg Q6H PRN Administration Anxiety Multivitamins 1 tab 04/24/18 10:00 04/24/18 10:21 Hexavitamin PO 1 tab DAILY RAGHU Administration Quetiapine Fumarate 100 mg 04/24/18 22:00 Seroquel PO HS RAGHU Thiamine HCl 100 mg 04/24/18 10:00 04/24/18 10:21 Vitamin B1 Tab PO 100 mg DAILY RAGHU Administration Trazodone HCl 50 mg 04/23/18 20:43 04/23/18 21:15 Desyrel PO 50 mg HS PRN Administration Insomnia Past Psychiatric History - Past Psychiatric History Previous Treatment History: Inpatient Pertinent Medical Hx (Current Medical&Sleep Prob, Allergies): Allergies Allergy/AdvReac Type Severity Reaction Status Date / Time No Known Allergies Allergy Verified 04/23/18 15:50 Benztropine [Cogentin] 1 mg PO BID #60 tab 03/24/18 FLUoxetine [Prozac] 40 mg PO DAILY #60 cap 03/24/18 Gabapentin [Neurontin] 300 mg PO BID #60 cap 03/24/18 Haloperidol [Haldol] 5 mg PO BID #60 tab 03/24/18 QUEtiapine [Seroquel] 100 mg PO HS #60 tab 03/24/18 Review of Systems - Review of Systems All systems: reviewed and no additional remarkable complaints except - Psychiatric Psychiatric: Anxiety, Auditory Hallucinations, Irritability, Mood Swings, Suicidal Ideation Mental Status Examination - Personal Presentation Personal Presentation: Looks stated age - Affect Affect: Constricted, Depressed - Motor Activity Motor Activity: Psychomotor Retardation - Reliability in Providing Information Reliability in Providing Information: Poor, due to alteration in thoughts, Poor , due to altered mood - Speech Speech: Disorganized - Mood Mood: Depressed, Anxious - Formal Thought Process Formal Thought Process: Hallucinations, Delusions, Paranoia, Loosening of associations - Hallucinations/Delusions Hallucinations: Visual, Auditory Delusions: Persecution - Obsessions/Compulsions Obsessions: No Compulsions: No - Cognitive Functions Orientation: Person, Place, Situation, Time Sensorium: Alert Attention/Concentration: Attentive Abstract Thinking: [place] Estimate of Intelligence: Below average Judgement: Imparied, as evidence by: Poor judgement, Imparied, as evidence by: Lack of insight into illness - Risk Risk: Suicidal, Withdrawal, Diminished functioning - Limitations Limitations: Living alone DSM 5 DX - DSM 5 DSM 5 Diagnosis: Major depressive disorder recurrent severe without psychotic features Alcohol use disorder severe Alcohol withdrawal - Recommended/Plan of Treatment Treatment Recommendations and Plan of Treatment: Major depressive disorder recurrent severe without psychotic features Alcohol use disorder severe Alcohol withdrawal uncomplicated CBT Psychoeducation Supportive therapy, group therapy, individual therapy Trazodone 50 mg by mouth daily at bedtime Hydroxyzine 25 mg by mouth every 6 hours when necessary Gabapentin 300 mg PO BID Celexa 20 mg daily Seroquel 100 mg PO QHS Use AR for abstinence Librium when necessary Librium taper Folic acid/thiamine/multivitamin - Smoking Cessation Smoking Cessation Initiated: No
[2018-04-24] MEDS: guaiFENesin 200 mg/10 ml Syrup UD PO PRN ×2 (14:00→16:08)
[2018-04-25] MEDS: guaiFENesin 200 mg/10 ml Syrup UD PO PRN ×3 (00:21→17:37)
[2018-04-25] MEDS: Multiple Vitamins Tab PO SCH (09:59)
--- NOTE | 2018-04-26 02:02 | PCM.PYCHPN ---
Psychiatric Progress Note - Psychiatric Progress Note Patient seen today, length of contact: 15 min Patient Chief Complaint: I relapsed on drinking.' Problems Identified/Issues Discussed: depressed and isolated Medication Change: Yes Medical Record Reviewed: Yes Mental Status Examination - Cognitive Function Orientation: Person, Place, Situation, Time Memory: Intact Attention: WNL Concentration: Poor Association: WNL Fund of Knowledge: Poor - Mood Mood: Depressed, Anxious - Affect Affect: Constricted, Depressed - Formal Thought Process Formal Thought Process: Hallucinations, Delusions, Paranoia, Loosening of associations - Suicidal Ideation Suicidal Ideation: No - Homicidal Ideation Homicidal Ideation: No Goal/Treatment Plan - Goal/Treatment Plan Need for Continued Stay: Discharge may exacerbated symptoms, Severe functional impairment Progress Toward Problem(s) and Goals/Treatment Plan: Major depressive disorder recurrent severe without psychotic features Alcohol use disorder severe Alcohol withdrawal uncomplicated CBT Psychoeducation Supportive therapy, group therapy, individual therapy Trazodone 50 mg by mouth daily at bedtime Hydroxyzine 25 mg by mouth every 6 hours when necessary Gabapentin 300 mg PO BID Celexa 20 mg daily Seroquel 100 mg PO QHS Use DE for abstinence Librium when necessary Librium taper Folic acid/thiamine/multivitamin
[2018-04-26] MEDS: Multiple Vitamins Tab PO SCH (09:41)
[2018-04-26] MEDS: guaiFENesin 200 mg/10 ml Syrup UD PO PRN ×2 (13:24→21:49)
--- NOTE | 2018-04-26 19:17 | PCM.PYCHPN ---
Psychiatric Progress Note - Psychiatric Progress Note Patient seen today, length of contact: 15 min Patient Chief Complaint: Feeling some anxiety at times. Problems Identified/Issues Discussed: Patient seen, chart reviewed, case discussed with the staff. Issues related to illness and treatment were discussed with the patient and staff. Reported compliant with treatment with no adverse affects. Tolerating treatment very well. Feeling better with some anxiety at times.. Aftercare discussed with the patient. At the time of evaluation, patient was awake alert oriented 3, had no delusions , no auditory or visual hallucinations, no suicidal ideations or homicidal ideations. Medical Problems: None reported Diagnostic Results: Reviewed DSM 5 Symptoms Update: Some improvement with treatment Medication Change: No Medical Record Reviewed: Yes Mental Status Examination - Cognitive Function Orientation: Person, Place, Situation, Time Memory: Intact Attention: WNL Concentration: WNL Association: [facility] Fund of Knowledge: [facility] Decription of patient's judgement and insights: Fair - Mood Mood: Anxious (Much less than before) - Affect Affect: Other (Appropriate) - Speech Speech: Appropriate - Formal Thought Process Formal Thought Process: No Impairment (None reported) - Suicidal Ideation Suicidal Ideation: No - Homicidal Ideation Homicidal Ideation: No Goal/Treatment Plan - Goal/Treatment Plan Need for Continued Stay: Remain at risks for inpatient hospitalization, Discharge may exacerbated symptoms, Severe functional impairment Progress Toward Problem(s) and Goals/Treatment Plan: Improving with treatment. Patient education. Supportive therapy. Continue treatment as before. Estimated Date of D/C: 04/28/18 - Smoking Cessation Smoking Cessation Initiated: No
[2018-04-27] MEDS: Multiple Vitamins Tab PO SCH (09:37)
[2018-04-27] MEDS: guaiFENesin 200 mg/10 ml Syrup UD PO PRN (10:34)
--- NOTE | 2018-04-27 19:31 | PCM.PYCHPN ---
Psychiatric Progress Note - Psychiatric Progress Note Patient seen today, length of contact: 15 min Patient Chief Complaint: I'm feeling better. Still feels some anxiety at times. Problems Identified/Issues Discussed: Patient seen, chart reviewed, case discussed with the staff. Issues related to illness and treatment were discussed with the patient and staff. Reported compliant with treatment with no adverse affects. Tolerating treatment very well. Feeling better with some anxiety at times. Aftercare discussed with the patient. At the time of evaluation, patient was awake alert oriented 3, had no delusions , no auditory or visual hallucinations, no suicidal ideations or homicidal ideations. Medical Problems: None reported Diagnostic Results: Reviewed DSM 5 Symptoms Update: Improving with treatment Medication Change: No Medical Record Reviewed: Yes Mental Status Examination - Cognitive Function Orientation: Person, Place, Situation, Time Memory: Intact Attention: WNL Concentration: WNL Association: WNL Fund of Knowledge: [facility] Decription of patient's judgement and insights: Fair. - Mood Mood: Anxious (Much less than before) - Affect Affect: Other (Appropriate) - Speech Speech: Appropriate - Formal Thought Process Formal Thought Process: No Impairment (None reported) - Suicidal Ideation Suicidal Ideation: No - Homicidal Ideation Homicidal Ideation: No Goal/Treatment Plan - Goal/Treatment Plan Need for Continued Stay: Remain at risks for inpatient hospitalization, Discharge may exacerbated symptoms, Severe functional impairment Progress Toward Problem(s) and Goals/Treatment Plan: Improving with treatment. Patient education. Supportive therapy. Continue treatment as before. Estimated Date of D/C: 04/28/18 - Smoking Cessation Smoking Cessation Initiated: No
[2018-04-28 06:14] VITALS: BP 121/80; PULSE 78; RESP 20; TEMP 98.3; O2SAT 96
[2018-04-28] MEDS: Multiple Vitamins Tab PO SCH (09:48)
--- NOTE | 2018-04-28 14:03 | PCM.PYCHDC ---
Mental Status Examination - Mental Status Examination Orientation: Person, Place, Situation, Time Memory: Intact Mood: Neutral Affect: Constricted Speech: Soft Attention: WNL Concentration: WNL Association: WNL Fund of Knowledge: WNL Formal Thought Process: No Impairment Description of patient's judgement and insight: good, fair Psychotic Thoughts and Behaviors: denies any AVH Suicidal Ideation: No Current Homicidal Ideation?: No Discharge Summary - Discharge Note Reason for Hospitalization: Pt is a 52 year old CF who presented at [facility] originally for substance abuse. Pt stated, I am [facility] being at the [facility]. Pt reported of [facility] for [facility] and she is suicidal because of being at the [facility] and she is drinking every day. When asked if pt has a plan, pt yelled, I want to cut my face off. She has h/o multiple in patient psychiatric hospitalizations but she has been non compliant with the treatment and follow ups. Pt want to be admitted in 5E. Pt began to calm down and finished the assessment. Pt stated she has a hx of Suicidal ideation in the past. Pt also stated, I see ghosts and hear my familys voices because my bf gives me these pills and I drink and I hear and see ghost. Pt stated she is dx with bipolar but does not take psych meds are seeks. Patient reports withdrawal symptoms including nausea, headaches , cramps and sweating. Consultations:: List each consultation separately and include: 1. Reason for request. 2. Findings. 3. Follow-up Summary of Hospital Course include:: 1. Description of specific treatment plan utilized for patients during their course of treatmen. 2. Summarize the time- course for resolution of acute symptoms and/or regressed behaviors. 3. Describe issues identified and worked on during hospitalization. 4. Describe medication utilized. 5. Describe medical problems identified and treated. 6. Reassessment of suicide risk Summary of Hospital Course: Pt is a 52 year old CF who presented at [facility] originally for substance abuse. Pt stated, I am tired of being at the [facility]. Pt reported of living at the [facility] for 3-4months and she is suicidal because of being at the [facility] and she is drinking every day. When asked if pt has a plan, pt yelled, I want to cut my face off. She has h/o multiple in patient psychiatric hospitalizations but she has been non compliant with the treatment and follow ups. Pt want to be admitted in 5E. Pt began to calm down and finished the assessment. Pt stated she has a hx of Suicidal ideation in the past. Pt also stated, I see ghosts and hear my familys voices because my bf gives me these pills and I drink and I hear and see ghost. Pt stated she is dx with bipolar but does not take psych meds are seeks. Patient reports withdrawal symptoms including nausea, headaches , cramps and sweating. PMH Nne reported - Diagnosis (1) Major depressive disorder with psychotic features Current Visit: Yes Status: Acute (2) Alcohol abuse Current Visit: No Status: Acute - Final Diagnosis (DSM 5) Condition upon Discharge: STABLE Disposition: HOME/ ROUTINE Follow-up Treatment Plan: Major depressive disorder recurrent severe without psychotic features Alcohol use disorder severe Alcohol withdrawal uncomplicated CBT Psychoeducation Supportive therapy, group therapy, individual therapy Trazodone 50 mg by mouth daily at bedtime Hydroxyzine 25 mg by mouth every 6 hours when necessary Gabapentin 300 mg PO BID Celexa 20 mg daily Seroquel 100 mg PO QHS Use SC for abstinence Librium when necessary Librium taper Folic acid/thiamine/multivitamin Prescriptions/Medication Reconciliation: Citalopram [celEXA] 20 mg PO DAILY #30 tab Gabapentin [Neurontin] 300 mg PO BID #60 cap QUEtiapine [Seroquel] 200 mg PO HS #30 tab
== END 2018-04-28 14:21 | disposition home or self-care (01) | DRG 885 ==
LOC: C.ER 15:03 → C.5E 19:37
PROC: GZ3ZZZZ Medication Management (ICD-10-PCS; principal; 2018-04-23)
PROC: GZHZZZZ Group Psychotherapy (ICD-10-PCS; 2018-04-23)
PROC: GZ56ZZZ Individual Psychotherapy, Supportive (ICD-10-PCS; 2018-04-23)
PROC: HZ89ZZZ Medication Management for Substance Abuse Treatment, Other Replacement Medication (ICD-10-PCS; 2018-04-23)
DX: F33.3 Major depressive disorder, recurrent, severe with psychotic symptoms (principal); R45.851 Suicidal ideations; F10.230 Alcohol dependence with withdrawal, uncomplicated; F31.9 Bipolar disorder, unspecified; F41.9 Anxiety disorder, unspecified; Z79.899 Other long term (current) drug therapy; Z91.19 Patient's noncompliance with other medical treatment and regimen; Z59.0 Homelessness

== ENCOUNTER 2018-05-01 18:58 | Emergency (ER) | payer MEDICARE, OTHER ==
[2018-05-01 18:59] VITALS: BMI 28.3
[2018-05-01 19:13] VITALS: TEMP 98.3
[2018-05-01 20:04] VITALS: BP 106/56; PULSE 89; RESP 20; O2SAT 100
--- NOTE | 2018-05-01 20:49 | C.PDOC ---
History Of Present Illness 52 year old female is brought to the ED by ambulance for evaluation of alcohol intoxication for an unknown duration. Patient was found outside of a liquor store. She admits to drinking earlier today and denies any complaints at this time. Chief Complaint (Nursing): Substance Abuse History Per: Patient, EMS History/Exam Limitations: intoxication Onset/Duration Of Symptoms: Hrs Current Symptoms Are (Timing): Still Present Suicide/Self Injury Attempted (Context): None Modifying Factor(s): Alcohol Associated Symptoms: denies: Suicidal Thoughts, Suicidal Plan Involuntary Hold By: None Recent travel outside of the [place]: No Additional History Per: Patient, EMS Past Medical History Reviewed: Historical Data, Nursing Documentation, Vital Signs Vital Signs: Last Vital Signs Temp 98.3 F 05/01/18 19:08 Pulse 89 05/01/18 20:02 Resp 20 05/01/18 20:02 BP 106/56 L 05/01/18 20:02 Pulse Ox 100 05/01/18 20:55 - Medical History PMH: Anxiety, Bipolar Disorder, Depression, Hepatitis, Schizophrenia Denies: Diabetes, HIV, HTN, Chronic Kidney Disease, Seizures, Sexually Transmitted Disease Surgical History: No Surg Hx - [facility] Procedures DETOXIFICATION SERVICES FOR SUBSTANCE ABUSE TREATMENT (03/15/18) GROUP B2B OUTSIDE SALES REPRESENTATIVE FOR SUBSTANCE ABUSE TREATMENT, PSYCHOEDUCATION (03/15/18) GROUP PSYCHOTHERAPY (04/23/18) INDIV PSYCHOTHERAPY FOR SUBSTANCE ABUSE TREATMENT, SUPPORT (03/15/18) INDIV PSYCHOTHERAPY FOR SUBSTANCE ABUSE, PSYCHOEDUCATION (12/30/17) INDIVIDUAL PSYCHOTHERAPY, BEHAVIORAL (01/31/18) INDIVIDUAL PSYCHOTHERAPY, COGNITIVE-BEHAVIORAL (04/19/17) INDIVIDUAL PSYCHOTHERAPY, SUPPORTIVE (04/23/18) MEDICATION MANAGEMENT (04/23/18) MEDS MGMT FOR SUBSTANCE ABUSE TREATMENT, OTH REPL MED (04/23/18) Family History: States: Unknown Family Hx - Social History Hx Tobacco Use: No Hx Alcohol Use: Yes Hx Substance Use: Yes - Immunization History Hx Tetanus Toxoid Vaccination: No Hx Influenza Vaccination: No Hx Pneumococcal Vaccination: No Review Of Systems Psych: Positive for: Other (EtOH intoxication ) Physical Exam - Physical Exam Appears: Non-toxic, No Acute Distress, Other (visibly intoxicated ) Skin: Normal Color, Warm, Dry Head: Atraumatic, Normacephalic Eye(s): bilateral: Normal Inspection Oral Mucosa: Moist, Other (alcohol on breath ) Neck: Supple Chest: Symmetrical, No Deformity, No Tenderness Cardiovascular: Rhythm Regular Respiratory: Normal Breath Sounds, No Accessory Muscle Use Extremity: Normal ROM Neurological/Psych: Other (arousable to touch and verbal stimuli ) ED Course And Treatment O2 Sat by Pulse Oximetry: 100 (on RA) Pulse Ox Interpretation: Normal Medical Decision Making Medical Decision Making: Progress: On re-exam, patient is resting comfortably and is showing no signs of distress. Patient is ambulatory in the ED with a steady gait and is stable for discharge. Disposition - Disposition Referrals: Alcoholics Anonymous [Outside] [facility] [Outside] [facility] [Outside] Disposition: HOME/ ROUTINE Disposition Time: 19:50 Condition: GOOD Additional Instructions: MOISES TORRES, thank you for letting us take care of you today. Your provider was Robert Mejia DO and you were treated for SUBSTANCE ABUSE. The emergency medical care you received today was directed at your acute symptoms. If you were prescribed any medication, please fill it and take as directed. It may take several days for your symptoms to resolve. Return to the Emergency Department if your symptoms worsen, do not improve, or if you have any other problems. Please contact your doctor or call one of the physicians/clinics you have been referred to that are listed on the Patient Visit Information form that is included in your discharge packet. Bring any paperwork you were given at discharge with you along with any medications you are taking to your follow up visit. Our treatment cannot replace ongoing medical care by a primary care provider outside of the emergency department. Thank you for allowing the [facility] team to be part of your care today. Follow up with out clinic and AA for outpatient care. Instructions: Alcohol Abuse and Alcoholism (DC) Forms: [employer] (Kazakh) - Clinical Impression Clinical Impression: Alcohol abuse - Scribe Statement The provider has reviewed the documentation as recorded by the Scribe (Emily Mosher) Provider Attestation: All medical record entries made by the Scribe were at my direction and personally dictated by me. I have reviewed the chart and agree that the record accurately reflects my personal performance of the history, physical exam, medical decision making, and the department course for this patient. I have also personally directed, reviewed, and agree with the discharge instructions and disposition.
== END 2018-05-01 20:02 | disposition home or self-care (01) ==
LOC: C.ER 18:58
DX: F10.129 Alcohol abuse with intoxication, unspecified (principal); F20.9 Schizophrenia, unspecified

== ENCOUNTER 2018-05-01 21:10 | Emergency (ER) | payer MEDICARE, OTHER ==
[2018-05-01 21:10] VITALS: BMI 28.3
[2018-05-01 21:31] VITALS: TEMP 98.4
[2018-05-01 22:13] VITALS: BP 97/62; PULSE 96; RESP 18; O2SAT 96
--- NOTE | 2018-05-02 00:05 | C.PDOC ---
History Of Present Illness 52 y/o female brought in by EMS for public intoxication. Patient was found sleeping on the street. + AOB. No evidence of recent fall or trauma. Patient denies having any acute physical complaints. Time Seen by Provider: 05/01/18 21:50 Chief Complaint (Nursing): Substance Abuse History Per: Patient History/Exam Limitations: intoxication Onset/Duration Of Symptoms: Hrs Current Symptoms Are (Timing): Still Present Additional History Per: EMS Past Medical History Reviewed: Historical Data, Nursing Documentation, Vital Signs Vital Signs: Last Vital Signs Temp 98.4 F 05/01/18 22:12 Pulse 96 H 05/01/18 22:12 Resp 18 05/01/18 22:12 BP 97/62 L 05/01/18 22:12 Pulse Ox 96 05/02/18 00:07 - Medical History PMH: Anxiety, Bipolar Disorder, Depression, Hepatitis, Schizophrenia Denies: Diabetes, HIV, HTN, Chronic Kidney Disease, Seizures, Sexually Transmitted Disease - [facility] Procedures DETOXIFICATION SERVICES FOR SUBSTANCE ABUSE TREATMENT (03/15/18) GROUP RN RADIATION FOR SUBSTANCE ABUSE TREATMENT, PSYCHOEDUCATION (03/15/18) GROUP PSYCHOTHERAPY (04/23/18) INDIV PSYCHOTHERAPY FOR SUBSTANCE ABUSE TREATMENT, SUPPORT (03/15/18) INDIV PSYCHOTHERAPY FOR SUBSTANCE ABUSE, PSYCHOEDUCATION (12/30/17) INDIVIDUAL PSYCHOTHERAPY, BEHAVIORAL (01/31/18) INDIVIDUAL PSYCHOTHERAPY, COGNITIVE-BEHAVIORAL (04/19/17) INDIVIDUAL PSYCHOTHERAPY, SUPPORTIVE (04/23/18) MEDICATION MANAGEMENT (04/23/18) MEDS MGMT FOR SUBSTANCE ABUSE TREATMENT, OTH REPL MED (04/23/18) Family History: States: Unknown Family Hx - Social History Hx Tobacco Use: No Hx Alcohol Use: Yes Hx Substance Use: Yes - Immunization History Hx Tetanus Toxoid Vaccination: No Hx Influenza Vaccination: No Hx Pneumococcal Vaccination: No Review Of Systems Review Of Systems: ROS cannot be obtained secondary to pt's inabilty to answer questions. Physical Exam - Physical Exam Appears: Non-toxic, No Acute Distress, Other (+alcohol on breath) Skin: Normal Color, Warm, Dry Head: Atraumatic, Normacephalic Eye(s): bilateral: Normal Inspection, PERRL, EOMI Oral Mucosa: Moist Neck: Normal ROM, Supple Chest: Symmetrical Cardiovascular: Rhythm Regular, No Murmur Respiratory: Normal Breath Sounds, No Rales, No Rhonchi, No Wheezing Gastrointestinal/Abdominal: Bowel Sounds, Soft, No Tenderness Extremity: Bilateral: Atraumatic, Normal Color And Temperature, Normal ROM Neurological/Psych: Oriented x3, Normal Speech, Other (Moving extremities equally, ambulating in the ED with steady gait) ED Course And Treatment O2 Sat by Pulse Oximetry: 96 (RA) Pulse Ox Interpretation: Normal Medical Decision Making Medical Decision Making: Initial Impression: 52 y/o intoxicated female Plan: Patient is ambulating with steady gait. Noted to have clear speech, no acute distress or evidence of injury/trauma. Patient is stable for discharge home. Disposition Counseled Patient/Family Regarding: Diagnosis, Need For Followup - Disposition Referrals: Alcoholics Anonymous [Outside] [facility] [Outside] [facility] [Outside] Non [facility] Provider, [Primary Care Provider] - Disposition: HOME/ ROUTINE Disposition Time: 21:50 Condition: STABLE Additional Instructions: MOISES TORRES, thank you for letting us take care of you today. Your provider was Robert Mejia DO and you were treated for SUBSTANCE ABUSE. The emergency medical care you received today was directed at your acute symptoms. If you were prescribed any medication, please fill it and take as directed. It may take several days for your symptoms to resolve. Return to the Emergency Department if your symptoms worsen, do not improve, or if you have any other problems. Please contact your doctor or call one of the physicians/clinics you have been referred to that are listed on the Patient Visit Information form that is included in your discharge packet. Bring any paperwork you were given at discharge with you along with any medications you are taking to your follow up visit. Our treatment cannot replace ongoing medical care by a primary care provider outside of the emergency department. Thank you for allowing the [facility] team to be part of your care today. Follow up with our clinic and AA for outpatient care. Instructions: Drug Abuse and Drug Addiction (DC) Forms: [employer] (Latvian) - POA Present On Arrival: None - Clinical Impression Clinical Impression: Alcohol abuse - Scribe Statement The provider has reviewed the documentation as recorded by the Scribe (Temi Baldwin) Provider Attestation: All medical record entries made by the Scribe were at my direction and personally dictated by me. I have reviewed the chart and agree that the record accurately reflects my personal performance of the history, physical exam, medical decision making, and the department course for this patient. I have also personally directed, reviewed, and agree with the discharge instructions and disposition.
== END 2018-05-01 22:35 | disposition home or self-care (01) ==
LOC: SUPCPDRO 21:10 → C.ER 21:10
DX: F10.10 Alcohol abuse, uncomplicated (principal); F20.9 Schizophrenia, unspecified

== ENCOUNTER 2018-05-06 14:57 | Emergency (ER) | payer MEDICARE, MEDICAID ==
[2018-05-06 15:11] VITALS: BMI 25.0
[2018-05-06] MEDS ORDERED: Sodium Chloride 0.9% 1,000 ML IV ONE ×2 (15:34→17:43)
--- NOTE | 2018-05-06 15:35 | C.PDOC ---
History Of Present Illness 52-year-old female brought to the emergency department by EMS, accompanied by [employer], apparently found in basement of an apartment appearing intoxicated/under influence. Patient is currently tearful, agitated and trying to elope. History is limited due to clinical condition. Time Seen by Provider: 05/06/18 15:03 Chief Complaint (Nursing): Substance Abuse History Per: Patient History/Exam Limitations: no limitations Current Symptoms Are (Timing): Still Present Modifying Factor(s): Other (substance and alcohol abuse) Severity: Moderate Involuntary Hold By: Emergency Physician Past Medical History Reviewed: Historical Data, Nursing Documentation, Vital Signs Vital Signs: Last Vital Signs Temp 98.1 F 05/06/18 15:00 Pulse 118 H 05/06/18 16:54 Resp 16 05/06/18 16:54 BP 116/75 05/06/18 16:54 Pulse Ox 95 05/06/18 18:08 Family History: States: No Known Family Hx - Social History Hx Alcohol Use: Yes Hx Substance Use: (UNKNOWN) Review Of Systems Review Of Systems: ROS cannot be obtained secondary to pt's inabilty to answer questions. Physical Exam - Physical Exam Appears: Non-toxic, Unkempt, Other (Intoxicated, tearful, agitated. appears to be under the influence of drugs ) Skin: Normal Color, Warm, Dry, No Rash Head: Atraumatic, Normacephalic Eye(s): bilateral: Normal Inspection, Other (pupils dilated B/L) Oral Mucosa: Moist Neck: Normal, Normal ROM Cardiovascular: Rhythm Regular (tachycardic ) Respiratory: Normal Breath Sounds, No Rales, No Rhonchi, No Wheezing Gastrointestinal/Abdominal: Normal Exam, Bowel Sounds, Soft, No Tenderness Extremity: Normal ROM, No Deformity, No Swelling Neurological/Psych: Other (awake, alert, moving all 4 extremities spontaneously) ED Course And Treatment - Laboratory Results Result Diagrams: 05/06/18 16:21 05/06/18 16:21 ECG: Interpreted By Me, Viewed By Me (sinus tachy 116 bpm, normal axis, no acute ST/T wave changes) ECG Interpretation: Abnormal (tachycardic) O2 Sat by Pulse Oximetry: 95 (RA) Pulse Ox Interpretation: Normal Progress Note: Blood work, UA, UDS, EKG ordered and reviewed. Patient given IV NS bolus, IV ativan, IM haldol. Disposition - Disposition Disposition Time: 19:00 Condition: STABLE Forms: [employer] (Indonesian) - Clinical Impression Clinical Impression: Alcohol intoxication, Substance abuse - Scribe Statement The provider has reviewed the documentation as recorded by the Scribe (Kimberly Francois) All medical record entries made by the Scribe were at my direction and personally dictated by me. I have reviewed the chart and agree that the record accurately reflects my personal performance of the history, physical exam, medical decision making, and the department course for this patient. I have also personally directed, reviewed, and agree with the discharge instructions and disposition. Physician Patient Turnover Patient Signed Over To: Taurus Brady Handoff Comments: pending sobriety
[2018-05-06] MEDS ORDERED: Sodium Chloride 0.9% 1,000 ML ONE ×2 (16:00→18:30)
--- NOTE | 2018-05-06 16:09 | RAD ---
PROCEDURE: CHEST RADIOGRAPH, 1 VIEW HISTORY: amd COMPARISON: None available. FINDINGS: LUNGS: Clear. PLEURA: No pneumothorax or pleural fluid seen. CARDIOVASCULAR: Atherosclerotic aortic calcifications. Cardiomediastinal silhouette at the upper limits of normal in size. OSSEOUS STRUCTURES: Degenerative changes. VISUALIZED UPPER ABDOMEN: Normal. OTHER FINDINGS: None. IMPRESSION: No active disease.
[2018-05-06 16:26] LABS: BASO # 0.1 K/uL (0.0-0.2); BASO % 1.4 % (0.0-2.0); EOS # 0.1 K/uL (0.0-0.7); HEMOGLOBIN 11.8 g/dL (11.0-16.0); LYMPH # 1.7 K/uL (1.0-4.3); LYMPH % 30.7 % (20.0-40.0); MEAN CELL VOLUME 90.8 fL (81.0-99.0); MEAN CORPUSCULAR HEMOGLOBIN 29.6 pg (27.0-31.0); MEAN CORPUSCULAR HGB CONC 32.6 g/dL (33.0-37.0); MEAN PLATELET VOLUME 7.4 fL (7.2-11.7); MONO # 0.3 K/uL (0.0-0.8); MONO % 6.1 % (0.0-10.0); NEUT # 3.4 K/uL (1.8-7.0); NEUT % 60.8 % (50.0-75.0); NRBC % 0.2 % (0.0-2.0); RBC 3.99 Mil/uL (3.80-5.20); RED CELL DISTRIBUTION WIDTH 18.2 % (11.5-14.5); WHITE BLOOD COUNT 5.6 K/uL (4.8-10.8)
[2018-05-06 16:28] LABS: HCG,QUALITATIVE URINE NEGATIVE (NEGATIVE)
[2018-05-06 16:30] LABS: SQUAMOUS EPITHIAL < 1 /hpf (0-5); URINE BILIRUBIN NEGATIVE (NEGATIVE); URINE BLOOD NEGATIVE (NEGATIVE); URINE CLARITY Clear (Clear); URINE COLOR Straw (YELLOW); URINE GLUCOSE (UA) NORMAL (Normal); URINE LEUKOCYTE ESTERASE NEG Leu/uL (Negative); URINE PROTEIN NEGATIVE (NEGATIVE); URINE UROBILINOGEN NORMAL mg/dL (0.2-1.0)
[2018-05-06 16:36] LABS: PROTHROMBIN TIME 11.3 SECONDS (9.7-12.2)
[2018-05-06 16:56] VITALS: RESP 16
[2018-05-06 16:56] LABS: ALB/GLOB RATIO 1.4 (1.0-2.1); ALBUMIN 4.6 g/dL (3.5-5.0); ALT/SGPT 37 U/L (9-52); AST/SGOT 38 U/L (14-36); BLOOD UREA NITROGEN 14 mg/dL (7-17); CALCIUM 8.6 mg/dl (8.6-10.4); GFR AFRICAN-AMERICAN > 60; GFR NON-AFRICAN AMERICAN > 60
[2018-05-06 17:09] LABS: BARBITURATES, UR NEGATIVE (NEGATIVE); OPIATES, UR NEGATIVE (NEGATIVE); PHENCYCLIDINE, UR NEGATIVE (NEGATIVE)
[2018-05-06 17:15] LABS: BENZODIAZEPINES, UR POSITIVE (NEGATIVE)
[2018-05-06 20:02] VITALS: BP 143/91; PULSE 108; TEMP 98.4; O2SAT 98
--- NOTE | 2018-05-08 21:02 | CARD ---
APPROVED REPORT EKG Measurement Heart [id number] <Conclusion> Sinus tachycardia Otherwise normal ECG
== END 2018-05-06 20:19 | disposition home or self-care (01) ==
LOC: C.ER 14:57 → EDBD 14:57 → MERGE 14:57 → C.ER 20:19
DX: F10.129 Alcohol abuse with intoxication, unspecified (principal); Y90.7 Blood alcohol level of 200-239 mg/100 ml; F19.10 Other psychoactive substance abuse, uncomplicated
CPT/HCPCS: 71045; 80053; 81001; 82550; 82553; 82948; 84484; 84703; 85025; 85610; 85730; 93005; 96361; 96372; 96374; 99285; G0480; J1630; J2060; J7030

== ENCOUNTER 2018-05-08 13:32 | Emergency (ER) | payer MEDICARE, OTHER ==
[2018-05-08 13:34] VITALS: BMI 28.3
[2018-05-08 14:25] LABS: BASO % 0.8 % (0.0-2.0); EOS % 0.9 % (0.0-4.0); HEMOGLOBIN 11.2 g/dL (11.0-16.0); LYMPH # 0.9 K/uL (1.0-4.3); LYMPH % 17.8 % (20.0-40.0); MEAN CELL VOLUME 90.5 fL (81.0-99.0); MEAN CORPUSCULAR HEMOGLOBIN 30.7 pg (27.0-31.0); MEAN CORPUSCULAR HGB CONC 33.9 g/dL (33.0-37.0); MEAN PLATELET VOLUME 7.6 fL (7.2-11.7); MONO # 0.5 K/uL (0.0-0.8); MONO % 9.6 % (0.0-10.0); NEUT # 3.7 K/uL (1.8-7.0); NEUT % 70.9 % (50.0-75.0); RBC 3.66 Mil/uL (3.80-5.20); RED CELL DISTRIBUTION WIDTH 18.3 % (11.5-14.5); WHITE BLOOD COUNT 5.2 K/uL (4.8-10.8)
[2018-05-08 14:28] LABS: HCG,QUALITATIVE URINE NEGATIVE (NEGATIVE); URINE BACTERIA RARE (<OCC); URINE BILIRUBIN NEGATIVE (NEGATIVE); URINE BLOOD NEGATIVE (NEGATIVE); URINE CLARITY Clear (Clear); URINE COLOR Yellow (YELLOW); URINE GLUCOSE (UA) NORMAL (Normal); URINE LEUKOCYTE ESTERASE NEG Leu/uL (Negative); URINE PROTEIN NEGATIVE (NEGATIVE); URINE UROBILINOGEN NORMAL mg/dL (0.2-1.0)
[2018-05-08 14:46] LABS: ALB/GLOB RATIO 1.4 (1.0-2.1); ALBUMIN 4.8 g/dL (3.5-5.0); ALT/SGPT 41 U/L (9-52); AST/SGOT 56 U/L (14-36); BLOOD UREA NITROGEN 7 mg/dL (7-17); CALCIUM 9.5 mg/dl (8.6-10.4); GFR AFRICAN-AMERICAN > 60; GFR NON-AFRICAN AMERICAN > 60
[2018-05-08 14:57] LABS: BARBITURATES, UR NEGATIVE (NEGATIVE); OPIATES, UR NEGATIVE (NEGATIVE); PHENCYCLIDINE, UR NEGATIVE (NEGATIVE)
[2018-05-08 15:09] LABS: BENZODIAZEPINES, UR POSITIVE (NEGATIVE)
--- NOTE | 2018-05-08 15:28 | C.PDOC ---
History Of Present Illness 52 y/o female, w/PMhx of schizophrenia, bipolar disorder, depression, and alcohol abuse and presents to the ER complaining of anxiety. Patient denies having other complaints at this time. Of note, patient had many prior evaluations for anxiety. Time Seen by Provider: 05/08/18 13:35 Chief Complaint (Nursing): Psychiatric Evaluation History Per: Patient History/Exam Limitations: no limitations Onset/Duration Of Symptoms: Days Current Symptoms Are (Timing): Still Present Severity: Moderate Past Medical History Reviewed: Historical Data, Nursing Documentation, Vital Signs Vital Signs: Last Vital Signs Temp 98.1 F 05/08/18 15:40 Pulse 115 H 05/08/18 15:40 Resp 18 05/08/18 15:40 BP 123/81 05/08/18 15:40 Pulse Ox 97 05/08/18 16:21 - Medical History PMH: Anxiety, Bipolar Disorder, Depression, Hepatitis, Schizophrenia Denies: Diabetes, HIV, HTN, Chronic Kidney Disease, Seizures, Sexually Transmitted Disease Other Surgeries: Hx of surgeries - [facility] Procedures DETOXIFICATION SERVICES FOR SUBSTANCE ABUSE TREATMENT (03/15/18) GROUP PRESS OPERATOR PRINTING FOR SUBSTANCE ABUSE TREATMENT, PSYCHOEDUCATION (03/15/18) GROUP PSYCHOTHERAPY (04/23/18) INDIV PSYCHOTHERAPY FOR SUBSTANCE ABUSE TREATMENT, SUPPORT (03/15/18) INDIV PSYCHOTHERAPY FOR SUBSTANCE ABUSE, PSYCHOEDUCATION (12/30/17) INDIVIDUAL PSYCHOTHERAPY, BEHAVIORAL (01/31/18) INDIVIDUAL PSYCHOTHERAPY, COGNITIVE-BEHAVIORAL (04/19/17) INDIVIDUAL PSYCHOTHERAPY, SUPPORTIVE (04/23/18) MEDICATION MANAGEMENT (04/23/18) MEDS MGMT FOR SUBSTANCE ABUSE TREATMENT, OTH REPL MED (04/23/18) Family History: States: No Known Family Hx - Social History Hx Tobacco Use: No Hx Alcohol Use: Yes Hx Substance Use: Yes - Immunization History Hx Tetanus Toxoid Vaccination: No Hx Influenza Vaccination: No Hx Pneumococcal Vaccination: No Review Of Systems Except As Marked, All Systems Reviewed And Found Negative. Constitutional: Negative for: Fever, Chills Psych: Positive for: Anxiety. Negative for: Suicidal ideation Physical Exam - Physical Exam Appears: Non-toxic, Other (tearful, anxious) Skin: Normal Color, Warm, Dry Head: Atraumatic, Normacephalic Eye(s): bilateral: Normal Inspection Nose: Normal Oral Mucosa: Moist Neck: Supple Chest: Symmetrical Cardiovascular: Rhythm Regular Respiratory: Normal Breath Sounds, No Rales, No Rhonchi, No Wheezing Gastrointestinal/Abdominal: Normal Exam, Soft, No Tenderness, No Guarding, No Rebound Extremity: Normal ROM Neurological/Psych: Oriented x3, Normal Speech ED Course And Treatment - Laboratory Results Result Diagrams: 05/08/18 14:21 05/08/18 14:21 O2 Sat by Pulse Oximetry: 97 (RA) Pulse Ox Interpretation: Normal Progress Note: Labs and UA ordered and reviewed. Medical Decision Making Medical Decision Making: well known to psych evaled and released for d/c and opt f/u. Disposition Doctor Will See Patient In The: Office Counseled Patient/Family Regarding: Studies Performed, Diagnosis - Disposition Referrals: Alcoholics Anonymous [Outside] [facility] [Outside] [facility] [Outside] [facility] [Outside] Disposition: HOME/ ROUTINE Disposition Time: 15:28 Condition: GOOD Additional Instructions: please follow-up as out patient with the outpatient psych services as usual Instructions: Anxiety, Adult (DC) Forms: [employer] (American) - Clinical Impression Clinical Impression: Anxiety - Scribe Statement The provider has reviewed the documentation as recorded by the Luis F Osei Provider Attestation: All medical record entries made by the Astridibe were at my direction and personally dictated by me. I have reviewed the chart and agree that the record accurately reflects my personal performance of the history, physical exam, medical decision making, and the department course for this patient. I have also personally directed, reviewed, and agree with the discharge instructions and disposition.
[2018-05-08 15:50] VITALS: BP 123/81; PULSE 115; RESP 18; TEMP 98.1
[2018-05-08 16:15] VITALS: O2SAT 97
== END 2018-05-08 15:41 | disposition home or self-care (01) ==
LOC: C.ER 13:32
DX: F41.9 Anxiety disorder, unspecified (principal); F20.9 Schizophrenia, unspecified
CPT/HCPCS: 80053; 81001; 82948; 84703; 85025; 99284; G0480

== ENCOUNTER 2018-05-21 22:13 | Emergency (ER) | payer MEDICAID, MEDICARE, OTHER ==
[2018-05-21 22:14] VITALS: BMI 28.3
[2018-05-21 22:48] VITALS: BP 129/79; PULSE 93; TEMP 97.2; O2SAT 95
--- NOTE | 2018-05-21 23:28 | C.PDOC ---
History Of Present Illness 52 year old female with PMHx of chronic alcoholism presents to the ED requesting for a place to sleep. Patient states she does not have any medical complaints at this time. Patient denies SI/HI, hallucinations, CP, SOB. Time Seen by Provider: 05/21/18 22:56 Chief Complaint (Nursing): Substance Abuse History Per: Patient History/Exam Limitations: intoxication Onset/Duration Of Symptoms: Hrs Current Symptoms Are (Timing): Still Present Suicide/Self Injury Attempted (Context): None Modifying Factor(s): Alcohol Associated Symptoms: denies: Depression, Suicidal Thoughts, Suicidal Plan Recent travel outside of the [place]: No Additional History Per: Patient, EMS Past Medical History Reviewed: Historical Data, Nursing Documentation, Vital Signs Vital Signs: Last Vital Signs Temp 97.2 F L 05/21/18 22:46 Pulse 93 H 05/21/18 22:46 Resp 20 05/22/18 00:00 BP 129/79 05/21/18 22:46 Pulse Ox 95 05/21/18 23:28 - Medical History PMH: Anxiety, Bipolar Disorder, Depression, Hepatitis, Schizophrenia Denies: Diabetes, HIV, HTN, Chronic Kidney Disease, Seizures, Sexually Transmitted Disease Surgical History: No Surg Hx - [facility] Procedures DETOXIFICATION SERVICES FOR SUBSTANCE ABUSE TREATMENT (03/15/18) GROUP DREDGE MASTER FOR SUBSTANCE ABUSE TREATMENT, PSYCHOEDUCATION (03/15/18) GROUP PSYCHOTHERAPY (04/23/18) INDIV PSYCHOTHERAPY FOR SUBSTANCE ABUSE TREATMENT, SUPPORT (03/15/18) INDIV PSYCHOTHERAPY FOR SUBSTANCE ABUSE, PSYCHOEDUCATION (12/30/17) INDIVIDUAL PSYCHOTHERAPY, BEHAVIORAL (01/31/18) INDIVIDUAL PSYCHOTHERAPY, COGNITIVE-BEHAVIORAL (04/19/17) INDIVIDUAL PSYCHOTHERAPY, SUPPORTIVE (04/23/18) MEDICATION MANAGEMENT (04/23/18) MEDS MGMT FOR SUBSTANCE ABUSE TREATMENT, OTH REPL MED (04/23/18) Family History: States: Unknown Family Hx - Social History Hx Tobacco Use: No Hx Alcohol Use: Yes Hx Substance Use: Yes - Immunization History Hx Tetanus Toxoid Vaccination: No Hx Influenza Vaccination: No Hx Pneumococcal Vaccination: No Review Of Systems Constitutional: Negative for: Fever, Chills Cardiovascular: Negative for: Chest Pain, Palpitations Respiratory: Negative for: Cough, Shortness of Breath Gastrointestinal: Negative for: Nausea, Vomiting Skin: Negative for: Lesions Psych: Negative for: Depression, Suicidal ideation Physical Exam - Physical Exam Appears: Non-toxic, Unkempt, Other (intoxicated) Skin: Normal Color, Warm, Dry Head: Atraumatic, Normacephalic Eye(s): bilateral: Normal Inspection Oral Mucosa: Moist Neck: Normal ROM, Supple Chest: Symmetrical Cardiovascular: Rhythm Regular Respiratory: Normal Breath Sounds, No Rales, No Rhonchi, No Wheezing Gastrointestinal/Abdominal: Soft, No Tenderness, No Guarding, No Rebound Extremity: Normal ROM, No Tenderness, No Swelling Neurological/Psych: Oriented x3, Normal Speech Gait: Steady ED Course And Treatment O2 Sat by Pulse Oximetry: 95 (ON RA) Pulse Ox Interpretation: Normal Progress Note: Patient was seen ambulating up and down the hallway in the ED with no difficulty. Upon discharge patient request detox, crisis was called and no detox beds were vailable. Patient was informed that no beds were available and was advised to follow up with clinic. Disposition Counseled Patient/Family Regarding: Diagnosis, Need For Followup - Disposition Disposition: HOME/ ROUTINE Disposition Time: 23:28 Condition: STABLE Additional Instructions: Follow up in clinic Instructions: Alcohol Abuse and Alcoholism (DC) Forms: [employer] (Vietnamese) - Clinical Impression Clinical Impression: Alcohol abuse - PA / CAMP ATTENDANT / Resident Statement MD/DO has reviewed & agrees with the documentation as recorded. - Scribe Statement The provider has reviewed the documentation as recorded by the Scribe Roly Bolaños All medical record entries made by the Scribe were at my direction and personally dictated by me. I have reviewed the chart and agree that the record accurately reflects my personal performance of the history, physical exam, medical decision making, and the department course for this patient. I have also personally directed, reviewed, and agree with the discharge instructions and disposition.
[2018-05-22] VITALS: RESP 20
== END 2018-05-22 | disposition home or self-care (01) ==
LOC: C.ER 22:13
DX: F10.10 Alcohol abuse, uncomplicated (principal); Y90.9 Presence of alcohol in blood, level not specified

== ENCOUNTER 2018-07-11 13:28 | Emergency (ER) | payer MEDICARE, OTHER ==
[2018-07-11 13:28] VITALS: BMI 24.7
[2018-07-11 13:56] VITALS: TEMP 98.2; O2SAT 100
--- NOTE | 2018-07-11 14:31 | C.PDOC ---
History Of Present Illness 52 y/o female, homeless, presents to ED c/o rash to back, arms and legs for the last 2 days. [place] and feels she was bitten by bugs Contrary to triage pt is not complaining of n/v/d, or abdominal pain. No other complaints. Time Seen by Provider: 07/11/18 14:22 Chief Complaint (Nursing): Abdominal Pain History Per: Patient History/Exam Limitations: no limitations Past Medical History Reviewed: Historical Data, Nursing Documentation, Vital Signs Vital Signs: Last Vital Signs Temp 98.2 F 07/11/18 13:52 Pulse 110 H 07/11/18 14:54 Resp 18 07/11/18 14:54 BP 133/87 07/11/18 14:54 Pulse Ox 100 07/11/18 15:07 - Medical History PMH: Anxiety, Bipolar Disorder, Depression, Hepatitis, Schizophrenia Denies: Diabetes, HIV, HTN, Chronic Kidney Disease, Seizures, Sexually Transmitted Disease - [facility] Procedures DETOXIFICATION SERVICES FOR SUBSTANCE ABUSE TREATMENT (03/15/18) GROUP COOK FISHING VESSEL FOR SUBSTANCE ABUSE TREATMENT, PSYCHOEDUCATION (03/15/18) GROUP PSYCHOTHERAPY (04/23/18) INDIV PSYCHOTHERAPY FOR SUBSTANCE ABUSE TREATMENT, SUPPORT (03/15/18) INDIV PSYCHOTHERAPY FOR SUBSTANCE ABUSE, PSYCHOEDUCATION (12/30/17) INDIVIDUAL PSYCHOTHERAPY, BEHAVIORAL (01/31/18) INDIVIDUAL PSYCHOTHERAPY, COGNITIVE-BEHAVIORAL (04/19/17) INDIVIDUAL PSYCHOTHERAPY, SUPPORTIVE (04/23/18) MEDICATION MANAGEMENT (04/23/18) MEDS MGMT FOR SUBSTANCE ABUSE TREATMENT, OTH REPL MED (04/23/18) Family History: States: Unknown Family Hx - Social History Hx Tobacco Use: No Hx Alcohol Use: Yes Hx Substance Use: No - Immunization History Hx Tetanus Toxoid Vaccination: Yes Hx Influenza Vaccination: No Hx Pneumococcal Vaccination: No Review Of Systems Except As Marked, All Systems Reviewed And Found Negative. Constitutional: Negative for: Fever, Chills Gastrointestinal: Negative for: Nausea, Vomiting, Abdominal Pain, Diarrhea Skin: Positive for: Rash Physical Exam - Physical Exam Appears: Non-toxic, No Acute Distress Skin: Warm, Dry, Rash (maculopapular rash with erythema to arms, between digits , legs, and back) Head: Atraumatic, Normacephalic Eye(s): bilateral: Normal Inspection Cardiovascular: Rhythm Regular Respiratory: Normal Breath Sounds, No Rales, No Rhonchi, No Wheezing Gastrointestinal/Abdominal: Soft, No Tenderness Extremity: Normal ROM Neurological/Psych: Oriented x3, Normal Speech ED Course And Treatment O2 Sat by Pulse Oximetry: 100 (RA) Pulse Ox Interpretation: Normal Medical Decision Making Medical Decision Making: Assessment: rash Repeat heart rate was 92. Disposition - Disposition Referrals: [facility] [Outside] Disposition: HOME/ ROUTINE Disposition Time: 14:28 Condition: STABLE Additional Instructions: follow up with medical clinic within 2 days call to make an appointment take medication as directed wash all clothes and linen in hot water return to hospital if symptoms worsens or progress Prescriptions: Loratadine [Claritin] 10 mg PO DAILY PRN #15 tab PRN Reason: Other Permethrin 5% [Permethrin 5% Cream] 1 applic TOP ONCE #1 bottle Instructions: Skin Rash (DC), Scabies (DC) Forms: [facility] (Maori), General Discharge Instructions - Clinical Impression Clinical Impression: Rash, Scabies - Scribe Statement The provider has reviewed the documentation as recorded by the Scribe KP All medical record entries made by the Scribe were at my direction and personally dictated by me. I have reviewed the chart and agree that the record accurately reflects my personal performance of the history, physical exam, medical decision making, and the department course for this patient. I have also personally directed, reviewed, and agree with the discharge instructions and disposition.
[2018-07-11 14:55] VITALS: BP 133/87; PULSE 110; RESP 18
== END 2018-07-11 14:55 | disposition home or self-care (01) ==
LOC: C.ER 13:28
DX: R21 Rash and other nonspecific skin eruption (principal); B86 Scabies; F20.9 Schizophrenia, unspecified; Z59.0 Homelessness

== ENCOUNTER 2018-12-26 18:18 | Emergency (ER) | payer OTHER ==
[2018-12-26 18:19] VITALS: BMI 24.7
[2018-12-26 18:30] VITALS: BP 156/117; PULSE 140; RESP 22; TEMP 98.7; O2SAT 97
--- NOTE | 2018-12-26 18:55 | C.PDOC ---
History Of Present Illness 53 year old female presents to ED requesting a place to stay. Patient stayed at [facility] overnight for alcohol abuse. Patient states she has not been not drinking today. Patient has a small sub-conjunctival hemorrhage on the left eye that was evaluated 2 days [address] was negative. Patient is requesting detox and has been through detox multiple times. Time Seen by Provider: 12/26/18 18:53 Chief Complaint (Nursing): Substance Abuse History Per: Patient History/Exam Limitations: no limitations Modifying Factor(s): Alcohol Past Medical History Reviewed: Historical Data, Nursing Documentation, Vital Signs Vital Signs: Last Vital Signs Temp 98.7 F 12/26/18 18:25 Pulse 140 H 12/26/18 18:25 Resp 22 12/26/18 18:25 BP 156/117 H 12/26/18 18:25 Pulse Ox 97 12/26/18 18:25 - Medical History PMH: Anxiety, Bipolar Disorder, Depression, Hepatitis, Schizophrenia Denies: Diabetes, HIV, HTN, Chronic Kidney Disease, Seizures, Sexually Transmitted Disease Surgical History: No Surg Hx - [facility] Procedures DETOXIFICATION SERVICES FOR SUBSTANCE ABUSE TREATMENT (03/15/18) GROUP PERSONNEL REPRESENTATIVE FOR SUBSTANCE ABUSE TREATMENT, PSYCHOEDUCATION (03/15/18) GROUP PSYCHOTHERAPY (04/23/18) INDIV PSYCHOTHERAPY FOR SUBSTANCE ABUSE TREATMENT, SUPPORT (03/15/18) INDIV PSYCHOTHERAPY FOR SUBSTANCE ABUSE, PSYCHOEDUCATION (12/30/17) INDIVIDUAL PSYCHOTHERAPY, BEHAVIORAL (01/31/18) INDIVIDUAL PSYCHOTHERAPY, COGNITIVE-BEHAVIORAL (04/19/17) INDIVIDUAL PSYCHOTHERAPY, SUPPORTIVE (04/23/18) MEDICATION MANAGEMENT (04/23/18) MEDS MGMT FOR SUBSTANCE ABUSE TREATMENT, OTH REPL MED (04/23/18) Family History: States: Unknown Family Hx - Social History Hx Tobacco Use: No Hx Alcohol Use: Yes Hx Substance Use: Yes - Immunization History Hx Tetanus Toxoid Vaccination: Yes Hx Influenza Vaccination: No Hx Pneumococcal Vaccination: No Review Of Systems Constitutional: Negative for: Fever, Chills, Weakness Eyes: Negative for: Vision Change Respiratory: Negative for: Cough, Shortness of Breath Gastrointestinal: Negative for: Nausea, Vomiting, Abdominal Pain Musculoskeletal: Negative for: Back Pain Skin: Negative for: Rash Neurological: Negative for: Weakness, Numbness, Dizziness Physical Exam - Physical Exam Appears: Chronically Ill, Other (bizarre) Skin: Normal Color, Warm, Dry Head: Atraumatic, Normacephalic Eye(s): left: Other (small sub-conjunctival hemorrhage. ) Neck: Normal ROM, Supple Chest: Symmetrical, No Deformity Gastrointestinal/Abdominal: Soft, No Tenderness Extremity: Other (Ecchymosis to the left thigh) Pulses: Left Radial: Normal, Right Radial: Normal Neurological/Psych: Oriented x3, Normal Speech, Normal Cognition ED Course And Treatment O2 Sat by Pulse Oximetry: 97 (RA) Progress Note: Upon reassessment, patient is resting comfortably ,in no distress, and is stable for discharge. Patient is advised to follow up with clinic. Patient is advised to return to ED if symptoms persist or worsen. Medical Decision Making Medical Decision Making: persistent alcohol abuse no etoh detox available for her tonight d/c'd from [facility] this AM ok for opt f/u. Disposition Doctor Will See Patient In The: Office Counseled Patient/Family Regarding: Studies Performed, Diagnosis - Disposition Referrals: Alcoholics Anonymous [Outside] [employer] [Outside] [facility] [Outside] [place] [facility] [employer] [place] [Outside] [facility] [Outside] [employer] [Outside] Disposition: HOME/ ROUTINE Disposition Time: 18:55 Condition: GOOD Additional Instructions: seek outpatient pre-screen for alcohol detox Instructions: Alcohol Use - When Is Drinking a Problem?, Alcohol Abuse and Alcoholism (DC) Forms: [facility] (German) - Clinical Impression Clinical Impression: Alcohol abuse - Scribe Statement The provider has reviewed the documentation as recorded by the Scribe (Stephanie Gutierrez) All medical record entries made by the Scribe were at my direction and personally dictated by me. I have reviewed the chart and agree that the record accurately reflects my personal performance of the history, physical exam, medical decision making, and the department course for this patient. I have also personally directed, reviewed, and agree with the discharge instructions and disposition.
== END 2018-12-26 19:12 | disposition home or self-care (01) ==
LOC: C.ER 18:18
DX: F10.10 Alcohol abuse, uncomplicated (principal)

== ENCOUNTER 2018-12-26 19:41 | Emergency (ER) | payer OTHER ==
[2018-12-26 19:42] VITALS: BMI 24.7
[2018-12-26 19:49] VITALS: BP 138/99; PULSE 128; RESP 20; TEMP 98.1; O2SAT 98
--- NOTE | 2018-12-26 19:52 | C.PDOC ---
History Of Present Illness 53 year old female presents to ED requesting a place to stay for the second time today. Patient was discharged 1 hour ago. Patient is anxious and irrational. Prior evaluations for patient are the same. No alcohol intoxication. Time Seen by Provider: 12/26/18 19:51 Chief Complaint (Nursing): Medical Clearance History/Exam Limitations: no limitations Past Medical History Reviewed: Historical Data, Nursing Documentation, Vital Signs Vital Signs: Last Vital Signs Temp 98.1 F 12/26/18 19:46 Pulse 128 H 12/26/18 19:46 Resp 20 12/26/18 19:46 BP 138/99 H 12/26/18 19:46 Pulse Ox 98 12/26/18 19:46 - Medical History PMH: Anxiety, Bipolar Disorder, Depression, Hepatitis, Schizophrenia Denies: Diabetes, HIV, HTN, Chronic Kidney Disease, Seizures, Sexually Transmitted Disease Surgical History: No Surg Hx - [facility] Procedures DETOXIFICATION SERVICES FOR SUBSTANCE ABUSE TREATMENT (03/15/18) GROUP BODY MAN FOR SUBSTANCE ABUSE TREATMENT, PSYCHOEDUCATION (03/15/18) GROUP PSYCHOTHERAPY (04/23/18) INDIV PSYCHOTHERAPY FOR SUBSTANCE ABUSE TREATMENT, SUPPORT (03/15/18) INDIV PSYCHOTHERAPY FOR SUBSTANCE ABUSE, PSYCHOEDUCATION (12/30/17) INDIVIDUAL PSYCHOTHERAPY, BEHAVIORAL (01/31/18) INDIVIDUAL PSYCHOTHERAPY, COGNITIVE-BEHAVIORAL (04/19/17) INDIVIDUAL PSYCHOTHERAPY, SUPPORTIVE (04/23/18) MEDICATION MANAGEMENT (04/23/18) MEDS MGMT FOR SUBSTANCE ABUSE TREATMENT, OTH REPL MED (04/23/18) Family History: States: Unknown Family Hx - Social History Hx Tobacco Use: No Hx Alcohol Use: Yes Hx Substance Use: No - Immunization History Hx Tetanus Toxoid Vaccination: Yes Hx Influenza Vaccination: No Hx Pneumococcal Vaccination: No Review Of Systems Constitutional: Negative for: Fever, Chills, Weakness Eyes: Negative for: Vision Change Gastrointestinal: Negative for: Nausea, Vomiting, Abdominal Pain Musculoskeletal: Negative for: Back Pain Skin: Negative for: Rash Neurological: Negative for: Weakness, Numbness, Dizziness Physical Exam - Physical Exam Appears: No Acute Distress, Chronically Ill, Other (bizarre) Skin: Normal Color, Warm, Dry Head: Atraumatic, Normacephalic Eye(s): left: Other (small sub-conjunctival hemorrhage) Neck: Normal ROM, Supple Chest: Symmetrical, No Deformity Gastrointestinal/Abdominal: Soft, No Tenderness Extremity: Other (Ecchymosis to the left thigh) Pulses: Left Radial: Normal, Right Radial: Normal Neurological/Psych: Oriented x3, Normal Speech, Normal Cognition ED Course And Treatment O2 Sat by Pulse Oximetry: 98 (RA) Progress Note: Upon reassessment, patient is resting comfortably ,in no distress, and is stable for discharge. Patient is advised to follow up with clinic. Patient is advised to return to ED if symptoms persist or worsen. Medical Decision Making Medical Decision Making: malingering not intoxicated wants a place to stay can go to [facility] Disposition Doctor Will See Patient In The: Office Counseled Patient/Family Regarding: Studies Performed, Diagnosis - Disposition Referrals: Alcoholics Anonymous [Outside] [facility] [Outside] [employer] [facility] [employer] [facility] [Outside] [facility] [Outside] [employer] [Outside] Disposition: HOME/ ROUTINE Disposition Time: 19:52 Condition: GOOD Additional Instructions: nightly [facility] placement seek AA seek Detox Instructions: Alcohol Use - When Is Drinking a Problem?, Anxiety, Adult (DC) Forms: [employer] (Kiswahili) - Clinical Impression Clinical Impression: Anxiety, Homeless single person - Scribe Statement The provider has reviewed the documentation as recorded by the Scribe (Stephanie Gutierrez) All medical record entries made by the Scribe were at my direction and personally dictated by me. I have reviewed the chart and agree that the record accurately reflects my personal performance of the history, physical exam, medical decision making, and the department course for this patient. I have also personally directed, reviewed, and agree with the discharge instructions and disposition.
== END 2018-12-26 20:07 | disposition home or self-care (01) ==
LOC: C.ER 19:41
DX: F41.9 Anxiety disorder, unspecified (principal); Z59.0 Homelessness